=== PATIENT | female | born 1965 | race Caucasian/White ===

== ENCOUNTER 2021-08-15 15:58 | Inpatient (IN) | payer OTHER ==
[2021-08-15] MEDS ORDERED: Sodium Chloride 0.9% 1,000 ML IV ONE (16:21)
[2021-08-15] MEDS ORDERED: Ondansetron 4 MG/2 ML SDV IV ONE (16:21)
[2021-08-15 16:37] LABS: BASE EXCESS ARTERIAL -7 mmol/L ((-2)-(+3)); BICARBONATE,ARTERIAL 14.6 mmol/L (22-26); O2 DELIVERY DEVICE ROOM AIR; O2 SATURATION ARTERIAL 96 % (95-100); PCO2 ARTERIAL 20 mmHg (35-45); PO2 ARTERIAL 80 mmHg (70-100)
[2021-08-15 16:52] LABS: ANION GAP 23.2 mEq/L (7-13); CHLORIDE,CL 92 mmol/L (98-107); SODIUM,NA 129 mmol/L (136-145)
[2021-08-15 16:54] LABS: PTT,PARTIAL THROMBOPLSTIN TIME 25.2 SEC (22.0-34.0)
[2021-08-15 17:19] LABS: CORONAVIRUS COVID-19 NAA POSITIVE (NEGATIVE)
--- NOTE | 2021-08-15 17:58 | CT ---
PROCEDURE INFORMATION: Exam: CT Chest Without Contrast; Diagnostic Exam date and time: 08/15/2021 5:36 PM Age: 56 years old Clinical indication: Other: Covid positive, cough TECHNIQUE: Imaging protocol: Diagnostic computed tomography of the chest without contrast. Radiation optimization: All CT scans at this facility use at least one of these dose optimization techniques: automated exposure control; mA and/or kV adjustment per patient size (includes targeted exams where dose is matched to clinical indication); or iterative reconstruction. COMPARISON: No relevant prior studies available. FINDINGS: Lungs: There are bilateral multifocal areas of interstitial/ground-glass opacity of mild severity. Distribution is peripheral. Pleural spaces: No pleural effusion. No pneumothorax. Heart: Small pericardial effusion measures up to 8 mm anteriorly. The heart is not enlarged.There is minor atherosclerotic calcification of the coronary arteries. Aorta: There is no thoracic aortic aneurysm. Lymph nodes: There is no evidence of lymphadenopathy. Gallbladder and bile ducts: Status post cholecystectomy. Adrenal glands: The adrenal glands are normal. Bones/joints: No acute bony findings are identified. Soft tissues: There is no soft tissue abnormality seen. IMPRESSION: 1. 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 Bacterial etiologies cannot not be excluded. 2. Follow-up imaging studies recommended to assure complete resolution. 3. Pericardial effusion, etiology indeterminate.
--- NOTE | 2021-08-15 18:10 | EDM.PDOC ---
"Scribed by Carol Molina 08/15/21 [id number] for Rosendo Mcgee MD ED HPI GENERAL MEDICAL PROBLEM - General Chief Complaint: General Stated Complaint: AMBULANCE Time Seen by Provider: 08/15/21 15:57 Source of Information: Reports: Patient, EMS, EMS Notes Reviewed, RN, RN Notes Reviewed History Limitations: Reports: No Limitations - History of Present Illness INITIAL COMMENTS - FREE TEXT/NARRATIVE: Pt arrives to ER from home by ambulance with c/o feeling progressively worse since 08/11/21. Pt states she went to a doctor's appointment in [place] on Saturday and began feeling ill in general with body ache and chills shortly after leaving the clinic. She developed nausea, vomiting, diarrhea, fever/chills, mild cough, dry mouth, and shortness of breath. Yesterday she lost her sense of taste and became worried that she might have COVID. Pt hasn't eaten or been able to keep down her oral meds for the last 3 days. 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 Pt has IDDM Type 2. Denies Hx of DKA. 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 Onset: Gradual Duration: Constant, Getting Worse Location: Reports: Generalized Quality: Reports: Ache Severity: Severe Improves with: Reports: None Worsens with: Reports: None Associated Symptoms: Reports: No Other Symptoms Generalized Pain Score (Numeric/FACES): 10 - Related Data Allergies Allergy/AdvReac Type Severity Reaction Status Date / Time daptomycin Allergy Cannot Verified 08/15/21 16:45 Remember piperacillin [From Zosyn] Allergy Cannot Verified 08/15/21 16:45 Remember tazobactam [From Zosyn] Allergy Cannot Verified 08/15/21 16:45 Remember Home Meds: Home Meds Aspirin [Aspirin EC] 81 mg PO BEDTIME 12/30/20 [History] Chlorthalidone 25 mg PO DAILY 12/30/20 [History] Cholecalciferol (Vitamin D3) [Vitamin D3] 2,000 unit PO DAILY 12/30/20 [History] Insulin Aspart [NovoLOG] 3 - 5 units SQ TIDMEALS 12/30/20 [History] Insulin Detemir [Levemir Flextouch] 30 unit SQ BEDTIME 12/30/20 [History] Pioglitazone HCl [Actos] 30 mg PO DAILY 12/30/20 [History] Spironolactone [Aldactone] 25 mg PO Q48H 12/30/20 [History] amLODIPine [Norvasc] 7.5 mg PO DAILY 12/30/20 [History] atorvaSTATin Calcium [Lipitor] 20 mg PO DAILY 12/30/20 [History] carvediloL [Coreg] 6.25 mg PO BID 12/30/20 [History] metFORMIN [Glucophage] 1,000 mg PO BIDMEALS 12/30/20 [History] Past Medical History HEENT History: Reports: Cataract, Impaired Vision, Retinal Detachment, Other (See Below) Other HEENT History: Left eye Cardiovascular History: Reports: Hypertension Genitourinary History: Reports: Chronic Renal Insuffiency 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: Endocrine/Metabolic History: Reports: Diabetes, Type II, Obesity/BMI 30+ Hematologic History: Reports: Blood Transfusion(s) Dermatologic History: Reports: Cellulitis - Past Surgical History HEENT Surgical History: Reports: Cataract Surgery Cardiovascular Surgical History: Reports: None GI Surgical History: Reports: Cholecystectomy Female Surgical History: Reports: Section, Endometrial Ablation Endocrine Surgical History: Reports: None Musculoskeletal Surgical History: Reports: Other (See Below) Other Musculoskeletal Surgeries/Procedures:: Right foot toe removal Social & Family History - Family History Family Medical History: No Pertinent Family History ED ROS GENERAL - Review of Systems Review Of Systems: Comprehensive ROS is negative, except as noted in HPI. ED EXAM, GENERAL - Physical Exam Exam: See Below Exam Limited By: No Limitations General Appearance: Alert, No Apparent Distress, Obese, Other (Acutely ill, but non-toxic appearing) Eye Exam: Bilateral Eye: EOMI, Normal Inspection, PERRL Nose: Normal Inspection, Normal Mucosa, No Blood Throat/Mouth: Normal Lips, Normal Voice, No Airway Compromise, Other (Very dry oral membranes) Head: Atraumatic, Normocephalic Neck: Normal Inspection, Supple, Non-Tender, Full Range of Motion Respiratory/Chest: No Respiratory Distress, No Accessory Muscle Use, Chest Non- Tender, Decreased Breath Sounds, Other (Hyperventilating). No: Crackles, Rales, Rhonchi, Wheezing Cardiovascular: Normal Peripheral Pulses, Regular Rate, Rhythm GI/Abdominal: Normal Bowel Sounds, Soft, No Organomegaly, No Distention, No Abnormal Bruit, No Mass, Tender (Mild generalized tenderness). No: Guarding, Rigid, Rebound Back Exam: Normal Inspection Extremities: Normal Inspection, Normal Range of Motion, Non-Tender, Normal Capillary Refill, No Pedal Edema Neurological: Alert, Oriented, CN II-XII Intact, Normal Cognition, Normal Gait, No Motor/Sensory Deficits Psychiatric: Normal Affect, Normal Mood Skin Exam: Warm, Dry, Intact, Normal Color, No Rash Course - Vital Signs Last Recorded V/S: Last Vital Signs Temp 97.6 F 08/15/21 16:40 Pulse 94 08/15/21 16:40 Resp 33 H 08/15/21 16:40 BP 142/75 H 08/15/21 16:40 Pulse Ox 95 08/15/21 16:40 - Orders/Labs/Meds Orders: Active Orders 24 hr Category Date Time Status Blood Glucose Check, Bedside [RC] ONETIME Care 08/15/21 15:56 Active Blood Glucose Check, Bedside [RC] ONETIME Care 08/15/21 16:18 Active Peripheral IV Care [RC] . DIRECTED Care 08/15/21 16:20 Active CULTURE BLOOD [BC] Stat Lab 08/15/21 16:20 Ordered CULTURE BLOOD [BC] Stat Lab 08/15/21 16:20 Received GLUCOSE,POC [POC] Routine Lab 08/15/21 18:00 Received UA W/MICROSCOPIC [URIN] Stat Lab 08/15/21 17:34 Results Insulin Regular in 0.9 % NACL [Myxredlin in NS 100 UNIT Med 08/15/21 16:22 Active /100 ML] 100 unit in 100 ml IV TITRATE Sodium Chloride 0.9% [Saline Flush] Med 08/15/21 16:19 Active 10 ml FLUSH ASDIRECTED PRN Blood Culture x2 Reflex Set [OM.PC] Stat Oth 08/15/21 16:17 Ordered Peripheral IV Insertion Adult [OM.PC] Stat Oth 08/15/21 16:19 Ordered Medication Orders Insulin Regular in 0.9 % NACL (Myxredlin In Ns 100 Unit/100 Ml) 100 unit in 100 mls @ 8.5 mls/hr IV TITRATE JONNY; Protocol Last Admin: 08/15/21 16:34 Dose: 0.1 units/kg/hr, 8.5 mls/hr Documented by: MARII Cosigned by: LIZETH Sodium Chloride (Sodium Chloride 0.9% 10 Ml Syringe) 10 ml FLUSH ASDIRECTED PRN PRN Reason: Keep Vein Open Labs: Laboratory Tests 08/15/21 08/15/21 08/15/21 Range/Units 15:56 16:19 16:20 WBC (5.0-10.0) 10^3/uL RBC (4.2-5.4) 10^6/uL Hgb (12.0-16.0) g/dL Hct (37.0-47.0) % MCV (80-100) fL MCH (27.0-34.0) pg MCHC (33.0-35.0) g/dL Plt Count (150-450) 10^3/uL Neut % (Auto) (42.2-75.2) % Lymph % (Auto) (20.5-50.1) % [place] % (Auto) (2-8) % Eos % (Auto) (1.0-3.0) % Baso % (Auto) (0.0-1.0) % PT (9.0-12.0) SEC INR (0.9-1.2) APTT (22.0-34.0) SEC D-Dimer, Quantitative (0-400) ng/mL ABG pH 7.48 H (7.35-7.45) ABG pCO2 20 L (35-45) mmHg ABG pO2 80 (70-100) mmHg ABG HCO3 14.6 L (22-26) mmol/L ABG O2 Saturation 96 (95-100) % ABG Base Excess -7 L ((-2)-(+3)) mmol/L O2 Delivery Device Room air Sodium 129 L (136-145) mmol/L Potassium 4.2 (3.5-5.1) mmol/L Chloride 92 L (98-107) mmol/L Carbon Dioxide 18 L (21-32) mmol/L Anion Gap 23.2 H (7-13) mEq/L BUN 63 H (7-18) mg/dL Creatinine 2.69 H (0.55-1.02) mg/dL Est Cr Clr Drug Dosing 22.12 mL/min Estimated GFR (MDRD) 18 BUN/Creatinine Ratio 23.4 (No establ ref range) Glucose 362 H (70-99) mg/dL POC Glucose (70-99) mg/dL Lactic Acid (0.4-2.0) mmol/L Calcium 8.9 (8.5-10.1) mg/dL Total Bilirubin 0.4 (0.2-1.0) mg/dL AST 32 (15-37) U/L ALT 45 (14-59) U/L Alkaline Phosphatase 108 (46-116) U/L Troponin I High Sens 25 (<=51) pg/mL C-Reactive Protein 2.1 H (0.0-0.9) mg/dL B-Natriuretic Peptide 8 (0-100) pg/ml Total Protein 8.2 (6.4-8.2) g/dL Albumin 3.3 L (3.4-5.0) g/dL Globulin 4.9 Albumin/Globulin Ratio 0.67 Amylase 53 (25-115) U/L Lipase 198 (73-393) U/L Urine Color (YELLOW) Urine Appearance (CLEAR) Urine pH (5.0-9.0) Ur Specific [place] (1.005-1.030) Urine Protein (NEGATIVE) Urine Glucose (UA) (NEGATIVE) Urine Ketones (NEGATIVE) Urine Occult Blood (NEGATIVE) Urine Nitrite (NEGATIVE) Urine Bilirubin (NEGATIVE) Urine Urobilinogen (0.2-1.0) mg/dL Ur Leukocyte Esterase (NEGATIVE) Ketones Negative Influenza Type A RNA Negative (NEGATIVE) Influenza Type B RNA Negative (NEGATIVE) SARS-CoV-2 RNA (CHET) Positive H (NEGATIVE) 08/15/21 08/15/21 08/15/21 Range/Units 16:20 16:20 16:20 WBC 6.6 (5.0-10.0) 10^3/uL RBC 5.05 (4.2-5.4) 10^6/uL Hgb 13.3 (12.0-16.0) g/dL Hct 38.2 (37.0-47.0) % MCV 75.6 L D (80-100) fL MCH 26.3 L (27.0-34.0) pg MCHC 34.8 (33.0-35.0) g/dL Plt Count 269 D (150-450) 10^3/uL Neut % (Auto) 79.1 H (42.2-75.2) % Lymph % (Auto) 11.0 L (20.5-50.1) % [place] % (Auto) 9.7 H (2-8) % Eos % (Auto) 0.0 L (1.0-3.0) % Baso % (Auto) 0.2 (0.0-1.0) % PT 10.2 (9.0-12.0) SEC INR 1.0 (0.9-1.2) APTT 25.2 (22.0-34.0) SEC D-Dimer, Quantitative 792 H (0-400) ng/mL ABG pH (7.35-7.45) ABG pCO2 (35-45) mmHg ABG pO2 (70-100) mmHg ABG HCO3 (22-26) mmol/L ABG O2 Saturation (95-100) % ABG Base Excess ((-2)-(+3)) mmol/L O2 Delivery Device Sodium (136-145) mmol/L Potassium (3.5-5.1) mmol/L Chloride (98-107) mmol/L Carbon Dioxide (21-32) mmol/L Anion Gap (7-13) mEq/L BUN (7-18) mg/dL Creatinine (0.55-1.02) mg/dL Est Cr Clr Drug Dosing mL/min Estimated GFR (MDRD) BUN/Creatinine Ratio (No establ ref range) Glucose (70-99) mg/dL POC Glucose (70-99) mg/dL Lactic Acid (0.4-2.0) mmol/L Calcium (8.5-10.1) mg/dL Total Bilirubin (0.2-1.0) mg/dL AST (15-37) U/L ALT (14-59) U/L Alkaline Phosphatase (46-116) U/L Troponin I High Sens (<=51) pg/mL C-Reactive Protein (0.0-0.9) mg/dL B-Natriuretic Peptide (0-100) pg/ml Total Protein (6.4-8.2) g/dL Albumin (3.4-5.0) g/dL Globulin Albumin/Globulin Ratio Amylase (25-115) U/L Lipase (73-393) U/L Urine Color (YELLOW) Urine Appearance (CLEAR) Urine pH (5.0-9.0) Ur Specific [place] (1.005-1.030) Urine Protein (NEGATIVE) Urine Glucose (UA) (NEGATIVE) Urine Ketones (NEGATIVE) Urine Occult Blood (NEGATIVE) Urine Nitrite (NEGATIVE) Urine Bilirubin (NEGATIVE) Urine Urobilinogen (0.2-1.0) mg/dL Ur Leukocyte Esterase (NEGATIVE) Ketones Influenza Type A RNA (NEGATIVE) Influenza Type B RNA (NEGATIVE) SARS-CoV-2 RNA (CHET) (NEGATIVE) 08/15/21 08/15/21 08/15/21 Range/Units 16:20 16:48 17:34 WBC (5.0-10.0) 10^3/uL RBC (4.2-5.4) 10^6/uL Hgb (12.0-16.0) g/dL Hct (37.0-47.0) % MCV (80-100) fL MCH (27.0-34.0) pg MCHC (33.0-35.0) g/dL Plt Count (150-450) 10^3/uL Neut % (Auto) (42.2-75.2) % Lymph % (Auto) (20.5-50.1) % [place] % (Auto) (2-8) % Eos % (Auto) (1.0-3.0) % Baso % (Auto) (0.0-1.0) % PT (9.0-12.0) SEC INR (0.9-1.2) APTT (22.0-34.0) SEC D-Dimer, Quantitative (0-400) ng/mL ABG pH (7.35-7.45) ABG pCO2 (35-45) mmHg ABG pO2 (70-100) mmHg ABG HCO3 (22-26) mmol/L ABG O2 Saturation (95-100) % ABG Base Excess ((-2)-(+3)) mmol/L O2 Delivery Device Sodium (136-145) mmol/L Potassium (3.5-5.1) mmol/L Chloride (98-107) mmol/L Carbon Dioxide (21-32) mmol/L Anion Gap (7-13) mEq/L BUN (7-18) mg/dL Creatinine (0.55-1.02) mg/dL Est Cr Clr Drug Dosing mL/min Estimated GFR (MDRD) BUN/Creatinine Ratio (No establ ref range) Glucose (70-99) mg/dL POC Glucose 324 H (70-99) mg/dL Lactic Acid 2.0 (0.4-2.0) mmol/L Calcium (8.5-10.1) mg/dL Total Bilirubin (0.2-1.0) mg/dL AST (15-37) U/L ALT (14-59) U/L Alkaline Phosphatase (46-116) U/L Troponin I High Sens (<=51) pg/mL C-Reactive Protein (0.0-0.9) mg/dL B-Natriuretic Peptide (0-100) pg/ml Total Protein (6.4-8.2) g/dL Albumin (3.4-5.0) g/dL Globulin Albumin/Globulin Ratio Amylase (25-115) U/L Lipase (73-393) U/L Urine Color Yellow (YELLOW) Urine Appearance Cloudy (CLEAR) Urine pH 5.5 (5.0-9.0) Ur Specific [place] >= 1.030 (1.005-1.030) Urine Protein 100 H (NEGATIVE) Urine Glucose (UA) 250 H (NEGATIVE) Urine Ketones Negative (NEGATIVE) Urine Occult Blood Moderate H (NEGATIVE) Urine Nitrite Negative (NEGATIVE) Urine Bilirubin Negative (NEGATIVE) Urine Urobilinogen 0.2 (0.2-1.0) mg/dL Ur Leukocyte Esterase Negative (NEGATIVE) Ketones Influenza Type A RNA (NEGATIVE) Influenza Type B RNA (NEGATIVE) SARS-CoV-2 RNA (CHET) (NEGATIVE) Meds: Medications Generic Name Dose Route Start Last Admin Trade Name Freq PRN Reason Stop Dose Admin Insulin Regular in 0.9 % NACL 100 unit in 100 mls @ 8.5 mls/hr 08/15/21 16:22 08/15/21 16:34 Myxredlin In Ns 100 Unit/100 Ml IV 0.1 units/kg/hr TITRATE JONNY 8.5 mls/hr Administration Protocol 0.1 UNITS/KG/HR Sodium Chloride 10 ml 08/15/21 16:19 Sodium Chloride 0.9% 10 Ml Syringe FLUSH ASDIRECTED PRN Keep Vein Open Discontinued Medications Generic Name Dose Route Start Last Admin Trade Name Freq PRN Reason Stop Dose Admin Sodium Chloride 1,000 mls @ 999 mls/hr 08/15/21 16:21 08/15/21 16:33 Normal Saline IV 08/15/21 17:21 999 mls/hr .BOLUS ONE Administration Ondansetron HCl 4 mg 08/15/21 16:21 08/15/21 16:31 Ondansetron 4 Mg/2 Ml Sdv IV 08/15/21 16:22 4 mg ONETIME ONE Administration - Radiology Interpretation Free Text/Narrative:: [facility] Final Radiology Report Call: [phone] assistance Online chat: [email or web address] Name: NEELAM CASTILLO Age: 56Years F Date: 08/15/2021 SSN: -- : [id number] Study: CT CHEST WO CONT Requesting Physician: ROSENDO MCGEE Images: [phone] Addl Studies: Provided Clinical History: COVID positive, cough Contrast: Without Contrast Medium: Contrast Amount: Contrast Method: Page 1 of 2 PROCEDURE INFORMATION: Exam: CT Chest Without Contrast; Diagnostic Exam date and time: 08/15/2021 5:36 PM Age: 56 years old Clinical indication: Other: Covid positive, cough TECHNIQUE: Imaging protocol: Diagnostic computed tomography of the chest without contrast. Radiation optimization: All CT scans at this facility use at least one of these dose optimization techniques: automated exposure control; mA and/or kV adjustment per patient size (includes targeted exams where dose is matched to clinical indication); or iterative reconstruction. COMPARISON: No relevant prior studies available. FINDINGS: Lungs: There are bilateral multifocal areas of interstitial/ground-glass opacity of mild severity. Distribution is peripheral. Pleural spaces: No pleural effusion. No pneumothorax. Heart: Small pericardial effusion measures up to 8 mm anteriorly. The heart is not enlarged.There is minor atherosclerotic calcification of the coronary arteries. Aorta: There is no thoracic aortic aneurysm. Lymph nodes: There is no evidence of lymphadenopathy. Gallbladder and bile ducts: Status post cholecystectomy. Adrenal glands: The adrenal glands are normal. Bones/joints: No acute bony findings are identified. Soft tissues: There is no soft tissue abnormality seen. IMPRESSION: NEELAM CASTILLO | Final Radiology Report CONFIDENTIALITY STATEMENT This report is intended only for use by the referring physician, and only in accordance with law. If you received this in error, call [phone]. Page 2 of 2 1. 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 Bacterial etiologies cannot not be excluded. 2. Follow-up imaging studies recommended to assure complete resolution. 3. Pericardial effusion, etiology indeterminate. Thank you for allowing us to participate in the care of your patient. Dictated and Authenticated by: Kenny Rodriguez MD 08/15/2021 5:57 PM Central Time ([place] & [place]) - Re-Assessments/Exams Free Text/Narrative Re-Assessment/Exam: 08/15/21 18:[address] Tovar. Departure - Departure Time of Disposition: 18:14 (admitted to Dr. 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 - Discharge Information *PRESCRIPTION DRUG MONITORING PROGRAM REVIEWED*: Not Applicable *COPY OF PRESCRIPTION DRUG MONITORING REPORT IN PATIENT HEIDE: Not Applicable Forms: ED Department Discharge Sepsis Event Note (ED) - Focused Exam Vital Signs: Vital Signs Temp Pulse Resp BP Pulse Ox 08/15/21 16:40 97.6 F 94 33 H 142/75 H 95 - My Orders Last 24 Hours: My Active Orders 08/15/21 15:56 Blood Glucose Check, Bedside [RC] ONETIME 08/15/21 16:17 Blood Culture x2 Reflex Set [OM.PC] Stat 08/15/21 16:18 Blood Glucose Check, Bedside [RC] ONETIME 08/15/21 16:19 Sodium Chloride 0.9% [Saline Flush] 10 ml FLUSH ASDIRECTED PRN Peripheral IV Insertion Adult [OM.PC] Stat 08/15/21 16:20 Peripheral IV Care [RC] . DIRECTED CULTURE BLOOD [BC] Stat CULTURE BLOOD [BC] Stat 08/15/21 16:22 Insulin Regular in 0.9 % NACL [Myxredlin in NS 100 UNIT/100 ML] 100 unit in 100 ml IV TITRATE 08/15/21 17:34 UA W/MICROSCOPIC [URIN] Stat 08/15/21 18:00 GLUCOSE,POC [POC] Routine - Assessment/Plan Last 24 Hours: My Active Orders 08/15/21 15:56 Blood Glucose Check, Bedside [RC] ONETIME 08/15/21 16:17 Blood Culture x2 Reflex Set [OM.PC] Stat 08/15/21 16:18 Blood Glucose Check, Bedside [RC] ONETIME 08/15/21 16:19 Sodium Chloride 0.9% [Saline Flush] 10 ml FLUSH ASDIRECTED PRN Peripheral IV Insertion Adult [OM.PC] Stat 08/15/21 16:20 Peripheral IV Care [RC] . DIRECTED CULTURE BLOOD [BC] Stat CULTURE BLOOD [BC] Stat 08/15/21 16:22 Insulin Regular in 0.9 % NACL [Myxredlin in NS 100 UNIT/100 ML] 100 unit in 100 ml IV TITRATE 08/15/21 17:34 UA W/MICROSCOPIC [URIN] Stat 08/15/21 18:00 GLUCOSE,POC [POC] Routine I have read and agree with the documentation that has been completed regarding this visit. By signing this record, I attest that the documentation was completed in my physical presence and is an accurate record of the encounter."
[2021-08-15] MEDS ORDERED: Azithromycin 500 MG in Sodium Chloride 0.9% 250 ML IV SCH (19:00)
[2021-08-15] MEDS ORDERED: Glucagon,Human Recombinant 1 MG Vial IM PRN (19:10)
[2021-08-15] MEDS ORDERED: 50% Dextrose in Water 50 ML Syringe IVPUSH PRN (19:10)
--- NOTE | 2021-08-15 19:56 | HP ---
CHIEF COMPLAINT: Fever, chills, nausea, and vomiting. HISTORY OF PRESENT ILLNESS: The patient is a 56-year-old female with past medical history of chronic kidney disease, type 2 diabetes mellitus, on insulin. She was admitted through the emergency room because the patient started having body aches and chills with nausea, vomiting, diarrhea, mild cough, and she lost her sense of taste yesterday and worried that she might have a COVID. In emergency room, she was tested for COVID, which came back positive. She also had a CAT scan of the chest, which showed some signs of COVID pneumonia. Symptoms started last 08/11/2021. She did complain of some mild shortness of breath, but she denies any chest pain, syncope, orthopnea, PND, nor any other associated symptoms. For the last 3 days, she was unable to take her medication including her medication for diabetes because of the nausea, vomiting, and diarrhea. Because of the above symptoms, she was then admitted for further evaluation and management. PAST MEDICAL HISTORY: Remarkable for cataract, retinal detachment, hypertension, chronic renal insufficiency, type 2 diabetes mellitus, obesity. PAST SURGICAL HISTORY: History of cholecystectomy and also history of amputation of the toe on the right foot. HOME MEDICATIONS: Aspirin, chlorthalidone, vitamin D3, NovoLog 3 to 5 units 3 times a day with meals, Levemir 30 units at bedtime, Actos, spironolactone, amlodipine, Lipitor, Coreg, metformin. ALLERGIES: Daptomycin, Zosyn. FAMILY HISTORY: Noncontributory. SOCIAL HISTORY: The patient is a nonsmoker, nonalcohol drinker, and no illicit drug use. REVIEW OF SYSTEMS: As in HPI. The rest of the review of systems is negative. PHYSICAL EXAMINATION: General: Very pleasant lady. She is alert and oriented, not in any acute distress. Vital Signs: Blood pressure is 142/75, pulse oximetry is 95% on room air, respirations of 33, pulse 94, temperature of 97.6. SHEENT: Normocephalic. There are pink palpebral conjunctivae. Sclerae anicteric. No JVD. No lymphadenopathy. Skin turgor slightly diminished, but mucous membranes moist. Heart: Regular rate and rhythm. Normal S1 and S2. No gallops. No rubs. Lungs: Equal bilaterally. No significant crackles. No wheezing. Abdomen: Soft, nontender. Bowel sounds positive. Extremities: Negative for any significant pedal edema. No calf tenderness. LABORATORY WORKUP: CBC: WBC 6.6, hemoglobin is 13.3, hematocrit is 38.2, platelet is 269. Protime is 10.2, INR of 1, and D-dimer is 792. Lactic acid is 2, which is within normal limits. Comprehensive metabolic panel: Sodium is 129, chloride of 92, BUN of 63, creatinine of 2.69, glucose is 362, albumin is 3.3. The rest of the panel unremarkable. Amylase is 53. Troponin is 25, which is within normal limits. C-reactive protein is 2.1. ABG: pH is 7.48, pCO2 of 20, pO2 of 80, saturation is 96%, and this is on room air. Urinalysis is remarkable for glucose of 250 and protein of 100. Influenza A and B are negative. SARS-CoV-2 RNA is positive. CAT scan of her chest showed bilateral interstitial disease suspected of pneumonia. ADMITTING DIAGNOSES: 1. Pneumonia. 2. Coronavirus disease 2019 infection. 3. Gastroenteritis. 4. Dehydration. 5. Uncontrolled diabetes. TREATMENT PLAN: The patient is going to be admitted to [facility]. She will be empirically started on IV antibiotics, Rocephin, and Zithromax for her pneumonia. Remdesivir will not be started as her saturation is still above 94%. We will also resume her Lantus and continue with sliding scale insulin and will give her IV fluids and the rest of the management as necessary, and the patient is a full code. [facility] /[id number]
[2021-08-15] MEDS: Sodium Chloride 0.9% 1,000 ML IV SCH (20:47)
[2021-08-15] MEDS: Pantoprazole 40 MG Tab.CR PO SCH (20:48)
[2021-08-15] MEDS: Carvedilol 6.25 MG Tab PO SCH (20:49)
[2021-08-15] MEDS: Ondansetron 4 MG Tab.DIS PO PRN (21:06)
[2021-08-15] MEDS: Insulin Lispro 100 Units/ML 3 ML Vial SUBCUT SCH (21:32)
[2021-08-15] MEDS: Insulin Glarg,Human.Rec.Analog 100 Unit/ML SUBCUT SCH (21:33)
[2021-08-15] MEDS: cefTRIAXone 1 GM in Sodium Chloride 0.9% 50 ML IV SCH (22:10)
[2021-08-16] MEDS: Albuterol/Ipratropium 3.0-0.5 MG/3 ML Neb Soln NEB SCH ×3 (01:10→18:37)
[2021-08-16 05:41] LABS: ANION GAP 19.9 mEq/L (7-13)
[2021-08-16] MEDS: Insulin Lispro 100 Units/ML 3 ML Vial SUBCUT SCH ×5 (09:11→22:12)
[2021-08-16] MEDS: Enoxaparin 30 MG/0.3 ML Syringe SUBCUT SCH (09:13)
[2021-08-16] MEDS: Carvedilol 6.25 MG Tab PO SCH ×2 (09:13→21:53)
[2021-08-16] MEDS: Doxycycline 100 MG in Sodium Chloride 0.9% 100 ML IV SCH ×2 (09:31→21:05)
[2021-08-16] MEDS: Ondansetron 4 MG Tab.DIS PO PRN (10:52)
[2021-08-16] MEDS ORDERED: Glucagon,Human Recombinant 1 MG Vial IM PRN (15:00)
[2021-08-16] MEDS ORDERED: 50% Dextrose in Water 50 ML Syringe IVPUSH PRN (15:00)
[2021-08-16] MEDS: Sodium Chloride 0.9% 1,000 ML IV SCH (16:48)
--- NOTE | 2021-08-16 20:20 | PN ---
DATE: 08/16/2021 SUBJECTIVE: The patient was seen today. She is in no acute distress. The patient is lying flat on the bed and no acute complaints. Creatinine decreased in the morning to 2.22 from 2.6. OBJECTIVE: Vital Signs: Temperature 99.7, pulse 80, blood pressure 147/74, respiratory rate 18, and oxygen saturation 92 on 1 L. HEENT: The patient's head is atraumatic, normocephalic. Neck: Supple. No thyromegaly. No lymphadenopathy. Heart: S1, S2. Regular rate. No murmur. Lungs: Mild crackles to ausculation. Abdomen: Soft, nontender. Positive bowel sounds. Extremities: No edema. Neurologic: The patient is alert and oriented x3. No acute focal neurologic deficits. LABORATORY DATA: Today, on 08/16/2021: WBC 6.4, hemoglobin 11.1, MCV 76.8, platelet count 242. Lymphocytes 16.2, low; monocytes 9.1, high; neutrophils normal. Sodium 134; potassium 3.9; chloride 99; CO2 19, which is low; anion gap 19.9, it is high; BUN 63, high; and creatinine is 2.22. Estimated creatinine clearance 26.8. Glucose 214. Calcium 7.7. Bilirubin 0.2. Albumin 2.6. Chest CT done on 08/15 shows bilateral interstitial disease suspected for pneumonia, viral etiology and atypical etiology require consideration. Bacterial etiology cannot be excluded. The patient's EKG done yesterday shows QTc more than 510. The patient's was discontinued, and the patient was started on doxycycline 100 mg IV q.12 hours. ASSESSMENT AND PLAN: 1. COVID pneumonia. The patient has been continuing with COVID isolation and to be continued with IV antibiotics, doxycycline 100 mg IV q.12 hours and Rocephin 1 g IV q.24 hours. Remdesivir cannot be started as her creatinine clearance is low. Also the patient's saturation is above 90. 2. Acute on chronic kidney injury. Creatinine improved with IV fluids. We will continue hydration. 3. Uncontrolled diabetes. The patient will continue with insulin glargine 30 units subcutaneous at bedtime, and we will add insulin lispro 7 units subcutaneous with meal, and we will continue insulin on sliding scale. 4. Gastroenteritis, resolved. The patient does not have acute complaints of diarrhea, vomiting. 5. For deep venous thrombosis prophylaxis, the patient will be on enoxaparin 30 mg subcutaneous q.24 hours. [facility] /[id number]
[2021-08-16] MEDS: cefTRIAXone 1 GM in Sodium Chloride 0.9% 50 ML IV SCH (20:28)
[2021-08-16] MEDS: Pantoprazole 40 MG Tab.CR PO SCH (20:29)
[2021-08-16] MEDS: Insulin Glarg,Human.Rec.Analog 100 Unit/ML SUBCUT SCH (21:57)
[2021-08-17] MEDS: Acetaminophen 325 MG Tab PO PRN ×4 (00:18→21:46)
[2021-08-17] MEDS: Sodium Chloride 0.9% 1,000 ML IV SCH ×3 (00:19→17:30)
[2021-08-17] MEDS: Albuterol/Ipratropium 3.0-0.5 MG/3 ML Neb Soln NEB SCH (00:22)
[2021-08-17 07:28] LABS: ANION GAP 16.9 mEq/L (7-13)
[2021-08-17] MEDS: Carvedilol 6.25 MG Tab PO SCH ×2 (08:58→21:39)
[2021-08-17] MEDS: Doxycycline 100 MG in Sodium Chloride 0.9% 100 ML IV SCH ×2 (08:59→21:41)
[2021-08-17] MEDS: Enoxaparin 30 MG/0.3 ML Syringe SUBCUT SCH ×2 (09:05→11:33)
[2021-08-17] MEDS: Insulin Lispro 100 Units/ML 3 ML Vial SUBCUT SCH ×7 (09:06→21:40)
--- NOTE | 2021-08-17 14:05 | PN ---
DATE: 08/17/2021 SUBJECTIVE: The patient was seen today. She is feeling better. OBJECTIVE: Vital Signs: In the morning were temperature 100.1, pulse rate 68, blood pressure 125/68 with mean blood pressure of 87, respiratory rate 18, oxygen saturation 96% on 1 L nasal cannula. Head: Normocephalic and atraumatic. Eyes: Pupils are reactive to light. Neck: Supple. No thyromegaly. No lymphadenopathy. Lungs: Mild fine crackles bilateral. Abdomen: Soft and nontender. Positive bowel sounds. Extremities: No edema. The patient has amputation of the right forefoot. LABORATORY DATA: Today, her sodium was 139, potassium 3.9, chloride 106, CO2 of 20, anion gap 16.9. BUN 37, creatinine of 1.79. GFR was 29. Estimated creatinine clearance is 13.24, glucose 122, calcium 7.8 and low, AST and ALT were 31 and 31, alkaline phosphatase 68, total protein 6. Albumin 2.3. The patient refused Lovenox because she was concerned she might be bleeding. I discussed with the patient and she agreed to take the Lovenox. ASSESSMENT AND PLAN: 1. Pneumonia due to COVID and also her procalcitonin was 0.3 and bacterial pneumonia, interstitial pneumonia, the patient will be continued with COVID isolation and we will continue with IV antibiotics, ceftriaxone 1 g q.24 hours and doxycycline 100 mg every 12 hours. The patient does not qualify for remdesivir or dexamethasone as her oxygen saturation is around 94% on room air. 2. Acute on chronic kidney disease. Creatinine is improving with IV fluids. We will continue IV hydration. 3. For diabetes, the patient will continue with insulin glargine and insulin lispro 7 units subcutaneous with meals and we will also give the patient insulin on sliding scale. 4. Gastroenteritis, resolved. 5. For deep vein thrombosis, the patient agreed to take enoxaparin 30 mg subcutaneous q.24 hours. [facility] /[id number]
[2021-08-17] MEDS: cefTRIAXone 1 GM in Sodium Chloride 0.9% 50 ML IV SCH (19:55)
[2021-08-17] MEDS: Pantoprazole 40 MG Tab.CR PO SCH (21:39)
[2021-08-17] MEDS: Insulin Glarg,Human.Rec.Analog 100 Unit/ML SUBCUT SCH (21:40)
[2021-08-17 22:16] LABS: ALLEN TEST PERFORMED
[2021-08-18] MEDS: Sodium Chloride 0.9% 1,000 ML IV SCH ×2 (03:23→12:26)
[2021-08-18] MEDS: Acetaminophen 325 MG Tab PO PRN ×3 (04:24→23:11)
[2021-08-18] MEDS ORDERED: Potassium Chloride 10 MEQ Tab.ER PO ONE (07:47)
[2021-08-18] MEDS: Insulin Lispro 100 Units/ML 3 ML Vial SUBCUT SCH ×5 (08:08→23:33)
[2021-08-18] MEDS: Carvedilol 6.25 MG Tab PO SCH ×2 (08:09→21:48)
[2021-08-18] MEDS: Enoxaparin 30 MG/0.3 ML Syringe SUBCUT SCH (08:10)
[2021-08-18] MEDS: Doxycycline 100 MG in Sodium Chloride 0.9% 100 ML IV SCH ×2 (08:24→21:55)
[2021-08-18] MEDS ORDERED: Magnesium Sulfate/Water 2 GM in Premix Bag 1 BAG IV ONE (10:44)
--- NOTE | 2021-08-18 13:20 | CR ---
EXAMINATION: Chest 1V Frontal SEX: Female AGE: 56 years CLINICAL HISTORY: 56-year-old obese female with clinical "pneumonia". Chest CT 15 August 2021 this COVID + patient revealed "bilateral interstitial disease suspicious for viral pneumonia". Interpretation: Poor inspiratory effort AP portable chest with external alarm security or surveillance monitor leads and oxygen cannula. Patchy interstitial infiltrate (and/or atelectasis?) LLL and infrahilar region, anterior segment, RLL (medially). No air bronchograms Normal cardiac silhouette (size and configuration). No pulmonary vascular congestion, cephalization of flow or alveolar edema. No dependent pleural effusions. No lung mass or hilar lymphadenopathy. Normal midline tracheal bronchial airway. No pneumothorax or pneumomediastinum. CONCLUSION: Patchy non consolidative lower lobe infiltrates and some atelectasis associated with poor inspiration. No sign of heart failure, lung mass, or other bronchogenic pneumonia.
[2021-08-18] MEDS ORDERED: Lactated Ringers 1,000 ML IV SCH (16:30)
[2021-08-18] MEDS: Bismuth Subsalicylate 262 MG Tab.Chew PO PRN ×2 (17:08→21:47)
--- NOTE | 2021-08-18 17:33 | PN ---
DATE: 08/18/2021 SUBJECTIVE: Patient is seen today. She is comfortable in the bed. She does not report any active complaints, but I was informed by the nurse she had three loose bowel movements today, watery, and she has decreased appetite. Patient had a temperature of 101.4 at 4:24 in the morning. Currently, she is saturating 92% at room air, and her last temperature at 4 p.m. was 97.7, her blood pressure 131/67, and respiratory rate 20. PHYSICAL EXAMINATION: HEENT: Her head is atraumatic, normocephalic. Pupils equally reactive to light. Neck: Supple. No thyromegaly. No lymphadenopathy. Heart: S1, S2. Regular rhythm and rate. Lungs: There are fine crackles in left lower lobe. Abdomen: Soft, nontender. Positive bowel sounds. Extremities: She has amputation of the forefoot, right lower extremity, and no edema. Neurologic: She is alert, oriented x3, and no gross focal neurologic deficits. LABORATORY DATA: Today, her WBC 6.2, hemoglobin 9.4, and platelet count 167. Neutrophils 87.9, lymphocytes 9.6. Her sodium was 138, potassium was 3, chloride 105, CO2 of 19, creatinine 1.37, GFR 40. Her glucoses 122, 140, 83, 73, 71. Magnesium 1.3, calcium 7.4, albumin 2.2, and total protein 5.6. Chest x-ray done was repeated today and it did show patchy nonconsolidative lower lobe infiltrate and some atelectasis associated with food inspiration. No sign of heart failure, lung mass, or other bronchogenic pneumonia. ASSESSMENT AND PLAN: 1. Pneumonia due to COVID, possible bacterial pneumonia. Patient will be continued with ceftriaxone 1 g every 24 hours and doxycycline 100 mg IV q.12 hours. She does not qualify for remdesivir and dexamethasone as her oxygen saturation is 92% at room air. 2. Acute kidney failure. Creatinine is improving with IV fluids. Currently, her creatinine is 1.37. 3. Hypokalemia. The patient was given potassium supplementation 40 mEq p.o. of potassium chloride. We will follow up potassium level tomorrow. 4. For diabetes, patient will continue with insulin glargine and insulin on sliding scale. 5. Gastroenteritis. The patient was given Pepto-Bismol 524 mg q.6 hours. 6. For deep venous thrombosis prophylaxis, she was given Lovenox 30 mg q.24 hours. [facility] /[id number]
[2021-08-18] MEDS: cefTRIAXone 1 GM in Sodium Chloride 0.9% 50 ML IV SCH (20:06)
[2021-08-18] MEDS: Ondansetron 4 MG Tab.DIS PO PRN (20:11)
[2021-08-18] MEDS: Benzonatate 100 MG Cap PO PRN (21:48)
[2021-08-18] MEDS: Pantoprazole 40 MG Tab.CR PO SCH (21:48)
[2021-08-18] MEDS: Saccharomyces Boulardii (Probiotic) 250 MG Cap PO SCH (21:48)
[2021-08-18] MEDS: Insulin Glarg,Human.Rec.Analog 100 Unit/ML SUBCUT SCH (23:33)
[2021-08-19] MEDS: Benzonatate 100 MG Cap PO PRN ×2 (04:50→20:47)
[2021-08-19 07:10] LABS: ANION GAP 15.6 mEq/L (7-13)
[2021-08-19] MEDS: Insulin Lispro 100 Units/ML 3 ML Vial SUBCUT SCH ×4 (08:24→21:25)
[2021-08-19] MEDS: Sodium Chloride 0.9% 10 ML Syringe FLUSH PRN (08:25)
[2021-08-19] MEDS: Carvedilol 6.25 MG Tab PO SCH ×2 (08:25→20:35)
[2021-08-19] MEDS: Saccharomyces Boulardii (Probiotic) 250 MG Cap PO SCH ×3 (08:25→20:35)
[2021-08-19] MEDS: Doxycycline 100 MG in Sodium Chloride 0.9% 100 ML IV SCH ×2 (08:25→20:36)
[2021-08-19] MEDS: Enoxaparin 30 MG/0.3 ML Syringe SUBCUT SCH (08:25)
[2021-08-19] MEDS: Ondansetron 4 MG Tab.DIS PO PRN ×2 (12:32→20:47)
--- NOTE | 2021-08-19 16:39 | PCM.PN ---
- General Info Date of Service: 08/19/21 Admission Dx/Problem (Free Text): covid 19 viral infection, covid related diarrhea Subjective Update: still having diarrhea today and feels very weak, short of breath with movement and activity Functional Status: Reports: Pain Controlled - Review of Systems General: Reports: Weakness HEENT: Reports: No Symptoms Pulmonary: Reports: Shortness of Breath, Cough. Denies: Sputum, Hemoptysis, Wheezing Cardiovascular: Reports: No Symptoms Gastrointestinal: Reports: Diarrhea. Denies: Abdominal Pain, Nausea, Vomiting Genitourinary: Reports: No Symptoms Musculoskeletal: Reports: No Symptoms Skin: Reports: No Symptoms Neurological: Reports: No Symptoms Psychiatric: Reports: No Symptoms - Patient Data Vitals - Most Recent: Last Vital Signs Temp 98 F 08/19/21 12:00 Pulse 80 08/19/21 12:00 Resp 16 08/19/21 12:00 BP 148/72 H 08/19/21 12:00 Pulse Ox 89 L 08/19/21 12:00 Weight - Most Recent: 186 lb 4.8 oz I&O - Last 24 Hours: Intake & Output 08/19/21 08/19/21 08/19/21 06:59 14:59 22:59 Intake Total 400 550 Balance 400 550 Lab Results Last 24 Hours: Laboratory Results - last 24 hr 08/18/21 08/18/21 08/18/21 Range/Units 06:40 16:22 21:42 WBC (5.0-10.0) 10^3/uL RBC (4.2-5.4) 10^6/uL Hgb (12.0-16.0) g/dL Hct (37.0-47.0) % MCV (80-100) fL MCH (27.0-34.0) pg MCHC (33.0-35.0) g/dL Plt Count (150-450) 10^3/uL Neut % (Auto) (42.2-75.2) % Lymph % (Auto) (20.5-50.1) % Emmet % (Auto) (2-8) % Eos % (Auto) (1.0-3.0) % Baso % (Auto) (0.0-1.0) % Smear Path Review Path rpt Sodium (136-145) mmol/L Potassium (3.5-5.1) mmol/L Chloride (98-107) mmol/L Carbon Dioxide (21-32) mmol/L Anion Gap (7-13) mEq/L BUN (7-18) mg/dL Creatinine (0.55-1.02) mg/dL Est Cr Clr Drug Dosing mL/min Estimated GFR (MDRD) BUN/Creatinine Ratio (No establ ref range) Glucose (70-99) mg/dL POC Glucose 71 83 (70-99) mg/dL Calcium (8.5-10.1) mg/dL Total Bilirubin (0.2-1.0) mg/dL AST (15-37) U/L ALT (14-59) U/L Alkaline Phosphatase (46-116) U/L Total Protein (6.4-8.2) g/dL Albumin (3.4-5.0) g/dL Globulin Albumin/Globulin Ratio 08/19/21 08/19/21 08/19/21 Range/Units 06:37 06:37 08:11 WBC 7.5 (5.0-10.0) 10^3/uL RBC 3.67 L (4.2-5.4) 10^6/uL Hgb 9.7 L (12.0-16.0) g/dL Hct 29.3 L (37.0-47.0) % MCV 79.8 L (80-100) fL MCH 26.4 L (27.0-34.0) pg MCHC 33.1 (33.0-35.0) g/dL Plt Count 185 (150-450) 10^3/uL Neut % (Auto) 86.8 H (42.2-75.2) % Lymph % (Auto) 10.3 L (20.5-50.1) % Emmet % (Auto) 2.8 (2-8) % Eos % (Auto) 0.0 L (1.0-3.0) % Baso % (Auto) 0.1 (0.0-1.0) % Smear Path Review Sodium 138 (136-145) mmol/L Potassium 3.6 (3.5-5.1) mmol/L Chloride 104 (98-107) mmol/L Carbon Dioxide 22 (21-32) mmol/L Anion Gap 15.6 H (7-13) mEq/L BUN 14 (7-18) mg/dL Creatinine 1.35 H (0.55-1.02) mg/dL Est Cr Clr Drug Dosing 44.08 mL/min Estimated GFR (MDRD) 41 BUN/Creatinine Ratio 10.4 (No establ ref range) Glucose 90 (70-99) mg/dL POC Glucose 85 (70-99) mg/dL Calcium 7.9 L (8.5-10.1) mg/dL Total Bilirubin 0.3 (0.2-1.0) mg/dL AST 51 H (15-37) U/L ALT 27 (14-59) U/L Alkaline Phosphatase 55 (46-116) U/L Total Protein 5.7 L (6.4-8.2) g/dL Albumin 2.1 L (3.4-5.0) g/dL Globulin 3.6 Albumin/Globulin Ratio 0.58 08/19/21 Range/Units 12:27 WBC (5.0-10.0) 10^3/uL RBC (4.2-5.4) 10^6/uL Hgb (12.0-16.0) g/dL Hct (37.0-47.0) % MCV (80-100) fL MCH (27.0-34.0) pg MCHC (33.0-35.0) g/dL Plt Count (150-450) 10^3/uL Neut % (Auto) (42.2-75.2) % Lymph % (Auto) (20.5-50.1) % Emmet % (Auto) (2-8) % Eos % (Auto) (1.0-3.0) % Baso % (Auto) (0.0-1.0) % Smear Path Review Sodium (136-145) mmol/L Potassium (3.5-5.1) mmol/L Chloride (98-107) mmol/L Carbon Dioxide (21-32) mmol/L Anion Gap (7-13) mEq/L BUN (7-18) mg/dL Creatinine (0.55-1.02) mg/dL Est Cr Clr Drug Dosing mL/min Estimated GFR (MDRD) BUN/Creatinine Ratio (No establ ref range) Glucose (70-99) mg/dL POC Glucose 105 H (70-99) mg/dL Calcium (8.5-10.1) mg/dL Total Bilirubin (0.2-1.0) mg/dL AST (15-37) U/L ALT (14-59) U/L Alkaline Phosphatase (46-116) U/L Total Protein (6.4-8.2) g/dL Albumin (3.4-5.0) g/dL Globulin Albumin/Globulin Ratio Kiko Results Last 24 Hours: Microbiology 08/15/21 16:20 Aerobic Blood Culture - Preliminary Blood - Venous - Iv Start NO GROWTH AFTER 4 DAYS Anaerobic Blood Culture - Preliminary NO GROWTH AFTER 4 DAYS 08/15/21 22:15 Aerobic Blood Culture - Preliminary Blood - Arm, Right NO GROWTH AFTER 3 DAYS Anaerobic Blood Culture - Preliminary NO GROWTH AFTER 3 DAYS Med Orders - Current: Current Medications Acetaminophen (Acetaminophen 325 Mg Tab) 650 mg PO Q4H PRN PRN Reason: Pain (Mild 1-3)/fever Last Admin: 08/18/21 23:11 Dose: 650 mg Documented by: Benzonatate (Benzonatate 100 Mg Cap) 100 mg PO Q8H PRN PRN Reason: Other Last Admin: 08/19/21 04:50 Dose: 100 mg Documented by: Bismuth Subsalicylate (Bismuth Subsalicylate 262 Mg Tab.Chew) 524 mg PO Q4H PRN PRN Reason: Diarrhea Last Admin: 08/18/21 21:47 Dose: 524 mg Documented by: Carvedilol (Carvedilol 6.25 Mg Tab) 6.25 mg PO BID [facility] Last Admin: 08/19/21 08:25 Dose: 6.25 mg Documented by: Dextrose/Water (50% Dextrose In Water 50 Ml Syringe) 50 ml IVPUSH Q15M PRN PRN Reason: Hypoglycemia Enoxaparin Sodium (Enoxaparin 30 Mg/0.3 Ml Syringe) 30 mg SUBCUT DAILY [facility] Last Admin: 08/19/21 08:25 Dose: 30 mg Documented by: Glucagon (Glucagon,Human Recombinant 1 Mg Vial) 1 mg IM Q15M PRN PRN Reason: Hypoglycemia Ceftriaxone Sodium 1 gm/ (Sodium Chloride) 50 mls @ 100 mls/hr IV Q24H [facility] Last Infusion: 08/18/21 23:37 Dose: Infused Documented by: Doxycycline Hyclate 100 mg/ (Sodium Chloride) 100 mls @ 100 mls/hr IV Q12HR [facility] Last Infusion: 08/19/21 11:09 Dose: Infused Documented by: Insulin Glargine (Insulin Glarg,Human.Rec.Analog 100 Unit/Ml) 30 unit SUBCUT BEDTIME [facility] Last Admin: 08/18/21 23:33 Dose: Not Given Documented by: Insulin Human Lispro (Insulin Lispro 100 Units/Ml 3 Ml Vial) 0 unit SUBCUT WITHMEALSANDBED [facility]; Protocol Last Admin: 08/19/21 12:31 Dose: Not Given Documented by: Ondansetron HCl (Ondansetron 4 Mg Tab.Dis) 4 mg PO Q4H PRN PRN Reason: nausea, able to take PO Last Admin: 08/19/21 12:32 Dose: 4 mg Documented by: Pantoprazole Sodium (Pantoprazole 40 Mg Tab.Cr) 40 mg PO BEDTIME [facility] Last Admin: 08/18/21 21:48 Dose: 40 mg Documented by: Saccharomyces Boulardii (Saccharomyces Boulardii (Probiotic) 250 Mg Cap) 250 mg PO TID [facility] Last Admin: 08/19/21 15:01 Dose: 250 mg Documented by: Sodium Chloride (Sodium Chloride 0.9% 10 Ml Syringe) 10 ml FLUSH ASDIRECTED PRN PRN Reason: Keep Vein Open Last Admin: 08/19/21 08:25 Dose: 10 ml Documented by: Discontinued Medications Albuterol/Ipratropium (Albuterol/Ipratropium 3.0-0.5 Mg/3 Ml Neb Soln) 3 ml NEB Q6HRRT [facility] Last Admin: 08/17/21 00:22 Dose: Not Given Documented by: Dextrose/Water (50% Dextrose In Water 50 Ml Syringe) 50 ml IVPUSH Q15M PRN PRN Reason: Hypoglycemia Glucagon (Glucagon,Human Recombinant 1 Mg Vial) 1 mg IM Q15M PRN PRN Reason: Hypoglycemia Sodium Chloride (Normal Saline) 1,000 mls @ 999 mls/hr IV .BOLUS ONE Stop: 08/15/21 17:21 Last Admin: 08/15/21 16:33 Dose: 999 mls/hr Documented by: Insulin Regular in 0.9 % NACL (Myxredlin In Ns 100 Unit/100 Ml) 100 unit in 100 mls @ 8.5 mls/hr IV TITRATE [facility]; Protocol Last Admin: 08/15/21 16:34 Dose: 0.1 units/kg/hr, 8.5 mls/hr Documented by: Sodium Chloride (Normal Saline) 1,000 mls @ 125 mls/hr IV ASDIRECTED [facility] Last Infusion: 08/18/21 17:09 Dose: Infused Documented by: Azithromycin 500 mg/ Sodium (Chloride) 250 mls @ 250 mls/hr IV Q24H [facility] Last Admin: 08/15/21 20:48 Dose: 250 mls/hr Documented by: Magnesium Sulfate 2 gm/ Premix 50 mls @ 25 mls/hr IV ONETIME ONE Stop: 08/18/21 12:43 Last Infusion: 08/18/21 14:14 Dose: Infused Documented by: Lactated Ringer's (Ringers, Lactated) 1,000 mls @ 100 mls/hr IV ASDIRECTED [facility] Last Infusion: 08/18/21 23:00 Dose: 100 mls/hr Documented by: Insulin Human Lispro (Insulin Lispro 100 Units/Ml 3 Ml Vial) 7 unit SUBCUT TIDMEALS [facility] Last Admin: 08/18/21 08:09 Dose: Not Given Documented by: Ondansetron HCl (Ondansetron 4 Mg/2 Ml Sdv) 4 mg IV ONETIME ONE Stop: 08/15/21 16:22 Last Admin: 08/15/21 16:31 Dose: 4 mg Documented by: Potassium Chloride (Potassium Chloride 10 Meq Tab.Er) 40 meq PO ONETIME ONE Stop: 08/18/21 07:48 Last Admin: 08/18/21 08:14 Dose: 40 meq Documented by: - Exam Quality Assessment: Supplemental Oxygen (1L), DVT Prophylaxis, Skin Breakdown (small chronic ulceration on foot) General: Alert, Oriented, Cooperative, Mild Distress HEENT: EOMI Neck: Supple, No JVD Lungs: Normal Respiratory Effort, Decreased Breath Sounds (throughout bilateral mid and lower lung briggs). No: Rales, Rhonchi, Stridor, Wheezing GI/Abdominal Exam: Soft, Non-Tender, No Distention (Female) Exam: Deferred Back Exam: Full Range of Motion Extremities: Normal Range of Motion Skin: Warm, Dry, Other (chronic ulcer on pad of foot) Neurological: No New Focal Deficit Psy/Mental Status: Normal Affect, Normal Mood - Patient Data Lab Results Last 24 hrs: Laboratory Results - last 24 hr 12/03/21 12/03/21 12/03/21 Range/Units 06:40 16:22 21:42 WBC (5.0-10.0) 10^3/uL RBC (4.2-5.4) 10^6/uL Hgb (12.0-16.0) g/dL Hct (37.0-47.0) % MCV (80-100) fL MCH (27.0-34.0) pg MCHC (33.0-35.0) g/dL Plt Count (150-450) 10^3/uL Neut % (Auto) (42.2-75.2) % Lymph % (Auto) (20.5-50.1) % Emmet % (Auto) (2-8) % Eos % (Auto) (1.0-3.0) % Baso % (Auto) (0.0-1.0) % Smear Path Review Path rpt Sodium (136-145) mmol/L Potassium (3.5-5.1) mmol/L Chloride (98-107) mmol/L Carbon Dioxide (21-32) mmol/L Anion Gap (7-13) mEq/L BUN (7-18) mg/dL Creatinine (0.55-1.02) mg/dL Est Cr Clr Drug Dosing mL/min Estimated GFR (MDRD) BUN/Creatinine Ratio (No establ ref range) Glucose (70-99) mg/dL POC Glucose 71 83 (70-99) mg/dL Calcium (8.5-10.1) mg/dL Total Bilirubin (0.2-1.0) mg/dL AST (15-37) U/L ALT (14-59) U/L Alkaline Phosphatase (46-116) U/L Total Protein (6.4-8.2) g/dL Albumin (3.4-5.0) g/dL Globulin Albumin/Globulin Ratio 08/19/21 08/19/21 08/19/21 Range/Units 06:37 06:37 08:11 WBC 7.5 (5.0-10.0) 10^3/uL RBC 3.67 L (4.2-5.4) 10^6/uL Hgb 9.7 L (12.0-16.0) g/dL Hct 29.3 L (37.0-47.0) % MCV 79.8 L (80-100) fL MCH 26.4 L (27.0-34.0) pg MCHC 33.1 (33.0-35.0) g/dL Plt Count 185 (150-450) 10^3/uL Neut % (Auto) 86.8 H (42.2-75.2) % Lymph % (Auto) 10.3 L (20.5-50.1) % Emmet % (Auto) 2.8 (2-8) % Eos % (Auto) 0.0 L (1.0-3.0) % Baso % (Auto) 0.1 (0.0-1.0) % Smear Path Review Sodium 138 (136-145) mmol/L Potassium 3.6 (3.5-5.1) mmol/L Chloride 104 (98-107) mmol/L Carbon Dioxide 22 (21-32) mmol/L Anion Gap 15.6 H (7-13) mEq/L BUN 14 (7-18) mg/dL Creatinine 1.35 H (0.55-1.02) mg/dL Est Cr Clr Drug Dosing 44.08 mL/min Estimated GFR (MDRD) 41 BUN/Creatinine Ratio 10.4 (No establ ref range) Glucose 90 (70-99) mg/dL POC Glucose 85 (70-99) mg/dL Calcium 7.9 L (8.5-10.1) mg/dL Total Bilirubin 0.3 (0.2-1.0) mg/dL AST 51 H (15-37) U/L ALT 27 (14-59) U/L Alkaline Phosphatase 55 (46-116) U/L Total Protein 5.7 L (6.4-8.2) g/dL Albumin 2.1 L (3.4-5.0) g/dL Globulin 3.6 Albumin/Globulin Ratio 0.58 08/19/ Range/Units 12:27 WBC (5.0-10.0) 10^3/uL RBC (4.2-5.4) 10^6/uL Hgb (12.0-16.0) g/dL Hct (37.0-47.0) % MCV (80-100) fL MCH (27.0-34.0) pg MCHC (33.0-35.0) g/dL Plt Count (150-450) 10^3/uL Neut % (Auto) (42.2-75.2) % Lymph % (Auto) (20.5-50.1) % Emmet % (Auto) (2-8) % Eos % (Auto) (1.0-3.0) % Baso % (Auto) (0.0-1.0) % Smear Path Review Sodium (136-145) mmol/L Potassium (3.5-5.1) mmol/L Chloride (98-107) mmol/L Carbon Dioxide (21-32) mmol/L Anion Gap (7-13) mEq/L BUN (7-18) mg/dL Creatinine (0.55-1.02) mg/dL Est Cr Clr Drug Dosing mL/min Estimated GFR (MDRD) BUN/Creatinine Ratio (No establ ref range) Glucose (70-99) mg/dL POC Glucose 105 H (70-99) mg/dL Calcium (8.5-10.1) mg/dL Total Bilirubin (0.2-1.0) mg/dL AST (15-37) U/L ALT (14-59) U/L Alkaline Phosphatase (46-116) U/L Total Protein (6.4-8.2) g/dL Albumin (3.4-5.0) g/dL Globulin Albumin/Globulin Ratio Result Diagrams: 08/19/21 06:37 08/19/21 06:37 Kiko Results Last 24 hrs: Microbiology 08/15/21 16:20 Aerobic Blood Culture - Preliminary Blood - Venous - Iv Start NO GROWTH AFTER 4 DAYS Anaerobic Blood Culture - Preliminary NO GROWTH AFTER 4 DAYS 08/15/21 22:15 Aerobic Blood Culture - Preliminary Blood - Arm, Right NO GROWTH AFTER 3 DAYS Anaerobic Blood Culture - Preliminary NO GROWTH AFTER 3 DAYS Sepsis Event Note - Evaluation Sepsis Screening Result: No Definite Risk - Focused Exam Vital Signs: Vital Signs Temp Pulse Pulse Resp BP BP Pulse Ox 08/19/21 12:00 98 F 80 16 148/72 H 89 L 08/19/21 08:25 84 132/64 08/19/21 08:22 99.9 F 84 22 H 132/64 96 - Problem List Review Problem List Initiated/Reviewed/Updated: Yes - My Orders Last 24 Hours: My Active Orders 08/18/21 20:16 Benzonatate [Tessalon Perles] 100 mg PO Q8H PRN - Assessment Assessment:: ACUTE CONDITIONS: Covid 19 viral pneumonia acute respiratory failure with hypoxia 2/2 above - currently requiring 1L supplemental oxygen to maintain saturations >90% - wean oxygen as tolerated - currently does not require dexamethasone or remdesevir. 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 started imodium today for covid related loose stools and it appears to be working well. no loose stools after. on 1L supplemental oxygen and weaning as tolerated. blood sugars currently well controlled. no other acute concerns. likely discharge tomorrow.
[2021-08-19] MEDS: Loperamide 2 MG Cap PO PRN (17:54)
[2021-08-19] MEDS: cefTRIAXone 1 GM in Sodium Chloride 0.9% 50 ML IV SCH (20:29)
[2021-08-19] MEDS: Pantoprazole 40 MG Tab.CR PO SCH (20:35)
[2021-08-19] MEDS: Acetaminophen 325 MG Tab PO PRN (20:36)
[2021-08-19] MEDS: Insulin Glarg,Human.Rec.Analog 100 Unit/ML SUBCUT SCH (20:45)
[2021-08-20] MEDS: Loperamide 2 MG Cap PO PRN (03:57)
[2021-08-20] MEDS: Benzonatate 100 MG Cap PO PRN (03:58)
[2021-08-20 06:41] LABS: ANION GAP 14.4 mEq/L (7-13)
[2021-08-20] MEDS: Carvedilol 6.25 MG Tab PO SCH ×2 (08:16→21:58)
[2021-08-20] MEDS: Saccharomyces Boulardii (Probiotic) 250 MG Cap PO SCH ×3 (08:16→21:42)
[2021-08-20] MEDS: Insulin Lispro 100 Units/ML 3 ML Vial SUBCUT SCH ×4 (08:22→21:55)
[2021-08-20] MEDS: Enoxaparin 30 MG/0.3 ML Syringe SUBCUT SCH (08:23)
[2021-08-20] MEDS: Doxycycline 100 MG in Sodium Chloride 0.9% 100 ML IV SCH (08:29)
--- NOTE | 2021-08-20 14:05 | PCM.PN ---
- General Info Date of Service: 08/20/21 Admission Dx/Problem (Free Text): covid 19 viral infection, covid related diarrhea Subjective Update: still having diarrhea today and feels very weak, short of breath with movement and activity. not up or moving much Functional Status: Reports: Pain Controlled, Incentive Spirometry (sporadically). Denies: Tolerating Diet (not eating well) - Review of Systems General: Reports: Weakness, Fatigue. Denies: Fever, Appetite HEENT: Reports: No Symptoms Pulmonary: Reports: Shortness of Breath, Cough. Denies: Pleuritic Chest Pain, Sputum, Hemoptysis, Wheezing Cardiovascular: Reports: Dyspnea on Exertion. Denies: Chest Pain, Edema Gastrointestinal: Reports: Decreased Appetite, Diarrhea. Denies: Abdominal Pain, Nausea, Vomiting Genitourinary: Reports: No Symptoms. Denies: Dysuria, Frequency Musculoskeletal: Reports: No Symptoms Skin: Reports: Other (ulcer on pad of right foor) Neurological: Reports: No Symptoms Psychiatric: Reports: No Symptoms - Patient Data Vitals - Most Recent: Last Vital Signs Temp 98.6 F 08/20/21 12:00 Pulse 73 08/20/21 12:00 Resp 20 08/20/21 12:00 BP 108/63 08/20/21 12:00 Pulse Ox 98 08/20/21 12:00 Weight - Most Recent: 186 lb 4.8 oz I&O - Last 24 Hours: Intake & Output 08/19/21 08/20/21 08/20/21 22:59 06:59 14:59 Intake Total 270 50 300 Balance 270 50 300 Lab Results Last 24 Hours: Laboratory Results - last 24 hr 08/19/21 08/19/21 08/20/21 Range/Units 16:56 20:26 05:55 WBC 8.9 (5.0-10.0) 10^3/uL RBC 3.70 L (4.2-5.4) 10^6/uL Hgb 9.7 L (12.0-16.0) g/dL Hct 29.6 L (37.0-47.0) % MCV 80.0 (80-100) fL MCH 26.2 L (27.0-34.0) pg MCHC 32.8 L (33.0-35.0) g/dL Plt Count 217 (150-450) 10^3/uL Neut % (Auto) 87.4 H (42.2-75.2) % Lymph % (Auto) 8.7 L (20.5-50.1) % Boyle % (Auto) 3.7 (2-8) % Eos % (Auto) 0.1 L (1.0-3.0) % Baso % (Auto) 0.1 (0.0-1.0) % Sodium (136-145) mmol/L Potassium (3.5-5.1) mmol/L Chloride (98-107) mmol/L Carbon Dioxide (21-32) mmol/L Anion Gap (7-13) mEq/L BUN (7-18) mg/dL Creatinine (0.55-1.02) mg/dL Est Cr Clr Drug Dosing mL/min Estimated GFR (MDRD) BUN/Creatinine Ratio (No establ ref range) Glucose (70-99) mg/dL POC Glucose 101 H 120 H (70-99) mg/dL Calcium (8.5-10.1) mg/dL Total Bilirubin (0.2-1.0) mg/dL AST (15-37) U/L ALT (14-59) U/L Alkaline Phosphatase (46-116) U/L Total Protein (6.4-8.2) g/dL Albumin (3.4-5.0) g/dL Globulin Albumin/Globulin Ratio 08/20/21 08/20/21 08/20/21 Range/Units 05:55 08:21 12:05 WBC (5.0-10.0) 10^3/uL RBC (4.2-5.4) 10^6/uL Hgb (12.0-16.0) g/dL Hct (37.0-47.0) % MCV (80-100) fL MCH (27.0-34.0) pg MCHC (33.0-35.0) g/dL Plt Count (150-450) 10^3/uL Neut % (Auto) (42.2-75.2) % Lymph % (Auto) (20.5-50.1) % Boyle % (Auto) (2-8) % Eos % (Auto) (1.0-3.0) % Baso % (Auto) (0.0-1.0) % Sodium 141 (136-145) mmol/L Potassium 3.4 L (3.5-5.1) mmol/L Chloride 107 (98-107) mmol/L Carbon Dioxide 23 (21-32) mmol/L Anion Gap 14.4 H (7-13) mEq/L BUN 16 (7-18) mg/dL Creatinine 1.32 H (0.55-1.02) mg/dL Est Cr Clr Drug Dosing 45.08 mL/min Estimated GFR (MDRD) 42 BUN/Creatinine Ratio 12.1 (No establ ref range) Glucose 80 (70-99) mg/dL POC Glucose 69 L 71 (70-99) mg/dL Calcium 7.8 L (8.5-10.1) mg/dL Total Bilirubin 0.3 (0.2-1.0) mg/dL AST 47 H (15-37) U/L ALT 28 (14-59) U/L Alkaline Phosphatase 52 (46-116) U/L Total Protein 5.1 L (6.4-8.2) g/dL Albumin 2.0 L (3.4-5.0) g/dL Globulin 3.1 Albumin/Globulin Ratio 0.65 Kiko Results Last 24 Hours: Microbiology 08/15/21 22:15 Aerobic Blood Culture - Preliminary Blood - Arm, Right NO GROWTH AFTER 4 DAYS Anaerobic Blood Culture - Preliminary NO GROWTH AFTER 4 DAYS 08/18/21 17:55 Aerobic Blood Culture - Preliminary Blood - Arm, Left NO GROWTH AFTER 1 DAY Anaerobic Blood Culture - Preliminary NO GROWTH AFTER 1 DAY 08/15/21 16:20 Aerobic Blood Culture - Preliminary Blood - Venous - Iv Start NO GROWTH AFTER 4 DAYS Anaerobic Blood Culture - Preliminary NO GROWTH AFTER 4 DAYS Med Orders - Current: Current Medications Acetaminophen (Acetaminophen 325 Mg Tab) 650 mg PO Q4H PRN PRN Reason: Pain (Mild 1-3)/fever Last Admin: 08/19/21 20:36 Dose: 650 mg Documented by: Benzonatate (Benzonatate 100 Mg Cap) 100 mg PO Q8H PRN PRN Reason: Other Last Admin: 08/20/21 03:58 Dose: 100 mg Documented by: Carvedilol (Carvedilol 6.25 Mg Tab) 6.25 mg PO BID JONNY Last Admin: 08/20/21 08:16 Dose: 6.25 mg Documented by: Dextrose/Water (50% Dextrose In Water 50 Ml Syringe) 50 ml IVPUSH Q15M PRN PRN Reason: Hypoglycemia Enoxaparin Sodium (Enoxaparin 30 Mg/0.3 Ml Syringe) 30 mg SUBCUT DAILY [facility] Last Admin: 08/20/21 08:23 Dose: 30 mg Documented by: Glucagon (Glucagon,Human Recombinant 1 Mg Vial) 1 mg IM Q15M PRN PRN Reason: Hypoglycemia Insulin Glargine (Insulin Glarg,Human.Rec.Analog 100 Unit/Ml) 25 unit SUBCUT BEDTIME [facility] Insulin Human Lispro (Insulin Lispro 100 Units/Ml 3 Ml Vial) 0 unit SUBCUT WITHMEALSANDBED [facility]; Protocol Last Admin: 08/20/21 12:30 Dose: Not Given Documented by: Loperamide HCl (Loperamide 2 Mg Cap) 2 mg PO ASDIRECTED PRN PRN Reason: Diarrhea Last Admin: 08/20/21 03:57 Dose: 2 mg Documented by: Ondansetron HCl (Ondansetron 4 Mg Tab.Dis) 4 mg PO Q4H PRN PRN Reason: nausea, able to take PO Last Admin: 08/19/21 20:47 Dose: 4 mg Documented by: Pantoprazole Sodium (Pantoprazole 40 Mg Tab.Cr) 40 mg PO BEDTIME [facility] Last Admin: 08/19/21 20:35 Dose: 40 mg Documented by: Saccharomyces Boulardii (Saccharomyces Boulardii (Probiotic) 250 Mg Cap) 250 mg PO TID [facility] Last Admin: 08/20/21 13:29 Dose: 250 mg Documented by: Sodium Chloride (Sodium Chloride 0.9% 10 Ml Syringe) 10 ml FLUSH ASDIRECTED PRN PRN Reason: Keep Vein Open Last Admin: 08/19/21 08:25 Dose: 10 ml Documented by: Discontinued Medications Albuterol/Ipratropium (Albuterol/Ipratropium 3.0-0.5 Mg/3 Ml Neb Soln) 3 ml NEB Q6HRRT [facility] Last Admin: 08/17/21 00:22 Dose: Not Given Documented by: Bismuth Subsalicylate (Bismuth Subsalicylate 262 Mg Tab.Chew) 524 mg PO Q4H PRN PRN Reason: Diarrhea Last Admin: 08/18/21 21:47 Dose: 524 mg Documented by: Dextrose/Water (50% Dextrose In Water 50 Ml Syringe) 50 ml IVPUSH Q15M PRN PRN Reason: Hypoglycemia Glucagon (Glucagon,Human Recombinant 1 Mg Vial) 1 mg IM Q15M PRN PRN Reason: Hypoglycemia Sodium Chloride (Normal Saline) 1,000 mls @ 999 mls/hr IV .BOLUS ONE Stop: 08/15/21 17:21 Last Admin: 08/15/21 16:33 Dose: 999 mls/hr Documented by: Insulin Regular in 0.9 % NACL (Myxredlin In Ns 100 Unit/100 Ml) 100 unit in 100 mls @ 8.5 mls/hr IV TITRATE [facility]; Protocol Last Admin: 08/15/21 16:34 Dose: 0.1 units/kg/hr, 8.5 mls/hr Documented by: Sodium Chloride (Normal Saline) 1,000 mls @ 125 mls/hr IV ASDIRECTED [facility] Last Infusion: 08/18/21 17:09 Dose: Infused Documented by: Ceftriaxone Sodium 1 gm/ (Sodium Chloride) 50 mls @ 100 mls/hr IV Q24H [facility] Last Admin: 08/19/21 20:29 Dose: 10 mls/hr Documented by: Azithromycin 500 mg/ Sodium (Chloride) 250 mls @ 250 mls/hr IV Q24H [facility] Last Admin: 08/15/21 20:48 Dose: 250 mls/hr Documented by: Doxycycline Hyclate 100 mg/ (Sodium Chloride) 100 mls @ 100 mls/hr IV Q12HR [facility] Last Infusion: 08/20/21 10:03 Dose: Infused Documented by: Magnesium Sulfate 2 gm/ Premix 50 mls @ 25 mls/hr IV ONETIME ONE Stop: 08/18/21 12:43 Last Infusion: 08/18/21 14:14 Dose: Infused Documented by: Lactated Ringer's (Ringers, Lactated) 1,000 mls @ 100 mls/hr IV ASDIRECTED [facility] Last Infusion: 08/18/21 23:00 Dose: 100 mls/hr Documented by: Insulin Glargine (Insulin Glarg,Human.Rec.Analog 100 Unit/Ml) 30 unit SUBCUT BEDTIME [facility] Last Admin: 08/19/21 20:45 Dose: 30 units Documented by: Insulin Glargine (Insulin Glarg,Human.Rec.Analog 100 Unit/Ml) 29 unit SUBCUT BEDTIME [facility] Insulin Human Lispro (Insulin Lispro 100 Units/Ml 3 Ml Vial) 7 unit SUBCUT TIDMEALS [facility] Last Admin: 08/18/21 08:09 Dose: Not Given Documented by: Ondansetron HCl (Ondansetron 4 Mg/2 Ml Sdv) 4 mg IV ONETIME ONE Stop: 08/15/21 16:22 Last Admin: 08/15/21 16:31 Dose: 4 mg Documented by: Potassium Chloride (Potassium Chloride 10 Meq Tab.Er) 40 meq PO ONETIME ONE Stop: 08/18/21 07:48 Last Admin: 08/18/21 08:14 Dose: 40 meq Documented by: Comments:: not feeling well today. weak overall and not much motivation to do things. minimal appetite. - Exam Quality Assessment: Supplemental Oxygen, DVT Prophylaxis, Skin Breakdown (chronic ulcer on pad of right foot). No: Urine Catheter General: Alert, Oriented, No Acute Distress HEENT: EOMI GI/Abdominal Exam: Soft, Non-Tender (Female) Exam: Deferred Back Exam: Full Range of Motion Skin: Warm, Dry Wound/Incisions: No Drainage, Decubitis Psy/Mental Status: Alert, Normal Affect - Patient Data Lab Results Last 24 hrs: Laboratory Results - last 24 hr 08/19/21 08/19/21 08/20/21 Range/Units 16:56 20:26 05:55 WBC 8.9 (5.0-10.0) 10^3/uL RBC 3.70 L (4.2-5.4) 10^6/uL Hgb 9.7 L (12.0-16.0) g/dL Hct 29.6 L (37.0-47.0) % MCV 80.0 (80-100) fL MCH 26.2 L (27.0-34.0) pg MCHC 32.8 L (33.0-35.0) g/dL Plt Count 217 (150-450) 10^3/uL Neut % (Auto) 87.4 H (42.2-75.2) % Lymph % (Auto) 8.7 L (20.5-50.1) % Boyle % (Auto) 3.7 (2-8) % Eos % (Auto) 0.1 L (1.0-3.0) % Baso % (Auto) 0.1 (0.0-1.0) % Sodium (136-145) mmol/L Potassium (3.5-5.1) mmol/L Chloride (98-107) mmol/L Carbon Dioxide (21-32) mmol/L Anion Gap (7-13) mEq/L BUN (7-18) mg/dL Creatinine (0.55-1.02) mg/dL Est Cr Clr Drug Dosing mL/min Estimated GFR (MDRD) BUN/Creatinine Ratio (No establ ref range) Glucose (70-99) mg/dL POC Glucose 101 H 120 H (70-99) mg/dL Calcium (8.5-10.1) mg/dL Total Bilirubin (0.2-1.0) mg/dL AST (15-37) U/L ALT (14-59) U/L Alkaline Phosphatase (46-116) U/L Total Protein (6.4-8.2) g/dL Albumin (3.4-5.0) g/dL Globulin Albumin/Globulin Ratio 08/20/21 08/20/21 08/20/21 Range/Units 05:55 08:21 12:05 WBC (5.0-10.0) 10^3/uL RBC (4.2-5.4) 10^6/uL Hgb (12.0-16.0) g/dL Hct (37.0-47.0) % MCV (80-100) fL MCH (27.0-34.0) pg MCHC (33.0-35.0) g/dL Plt Count (150-450) 10^3/uL Neut % (Auto) (42.2-75.2) % Lymph % (Auto) (20.5-50.1) % Boyle % (Auto) (2-8) % Eos % (Auto) (1.0-3.0) % Baso % (Auto) (0.0-1.0) % Sodium 141 (136-145) mmol/L Potassium 3.4 L (3.5-5.1) mmol/L Chloride 107 (98-107) mmol/L Carbon Dioxide 23 (21-32) mmol/L Anion Gap 14.4 H (7-13) mEq/L BUN 16 (7-18) mg/dL Creatinine 1.32 H (0.55-1.02) mg/dL Est Cr Clr Drug Dosing 45.08 mL/min Estimated GFR (MDRD) 42 BUN/Creatinine Ratio 12.1 (No establ ref range) Glucose 80 (70-99) mg/dL POC Glucose 69 L 71 (70-99) mg/dL Calcium 7.8 L (8.5-10.1) mg/dL Total Bilirubin 0.3 (0.2-1.0) mg/dL AST 47 H (15-37) U/L ALT 28 (14-59) U/L Alkaline Phosphatase 52 (46-116) U/L Total Protein 5.1 L (6.4-8.2) g/dL Albumin 2.0 L (3.4-5.0) g/dL Globulin 3.1 Albumin/Globulin Ratio 0.65 Result Diagrams: 08/20/21 05:55 08/20/21 05:55 Kiko Results Last 24 hrs: Microbiology 08/15/21 22:15 Aerobic Blood Culture - Preliminary Blood - Arm, Right NO GROWTH AFTER 4 DAYS Anaerobic Blood Culture - Preliminary NO GROWTH AFTER 4 DAYS 08/18/21 17:55 Aerobic Blood Culture - Preliminary Blood - Arm, Left NO GROWTH AFTER 1 DAY Anaerobic Blood Culture - Preliminary NO GROWTH AFTER 1 DAY 08/15/21 16:20 Aerobic Blood Culture - Preliminary Blood - Venous - Iv Start NO GROWTH AFTER 4 DAYS Anaerobic Blood Culture - Preliminary NO GROWTH AFTER 4 DAYS Sepsis Event Note - Evaluation Sepsis Screening Result: No Definite Risk - Focused Exam Vital Signs: Vital Signs Temp Pulse Pulse Resp BP BP Pulse Ox 08/20/21 12:00 98.6 F 73 20 108/63 98 08/20/21 08:16 75 121/65 08/20/21 08:00 98.1 F 75 20 121/65 91 L 08/20/21 04:00 97.6 F 64 18 129/65 94 L - Problem List Review Problem List Initiated/Reviewed/Updated: Yes - My Orders Last 24 Hours: My Active Orders 08/19/21 16:47 Loperamide [Imodium] 2 mg PO ASDIRECTED PRN 08/20/21 21:00 Insulin Glarg,Human.Rec.Analog [LantUS] 25 unit SUBCUT BEDTIME - Assessment Assessment:: ACUTE CONDITIONS: Covid 19 viral pneumonia acute respiratory failure with hypoxia 2/2 above - currently requiring 1L supplemental oxygen to maintain saturations >90% - wean oxygen as tolerated - currently does not require dexamethasone or remdesevir. Covid 19 related diarrhea: - PRN imodium as directed DMII, insulin dependent, with hypoglycemia as a complication - decrease home dose glargine 30U at bedtime to 25U at bedtime - POC blood glucose and SSI - hypoglycemia protocol in place CHRONIC CONDITIONS: - chronic ulcer of right foot pad s/p transmetatarsal amputation - CKD Stage III, currently baseline - obesity: BMI 30-34 on admit DVT prophylaxis: subQ heparin Code status: Full code MDM/interval Hx. oxygen requirement up to 2.5L overnight. pt has minimal motivation to get up to chair, eat or use IS. she is being prompted by nursing consistently. will wean oxygen as tolerated. .
[2021-08-20] MEDS ORDERED: REMDESIVIR 200 MG in Sodium Chloride 0.9% 250 ML IV ONE (14:10)
[2021-08-20] MEDS: Dexamethasone 6 MG TABLET PO SCH (15:03)
[2021-08-20] MEDS ORDERED: Insulin Glarg,Human.Rec.Analog 100 Unit/ML SUBCUT SCH (21:00)
[2021-08-20] MEDS: Pantoprazole 40 MG Tab.CR PO SCH (21:42)
[2021-08-20] MEDS: Insulin Glarg,Human.Rec.Analog 100 Unit/ML SUBCUT SCH (21:54)
[2021-08-21] MEDS: Insulin Lispro 100 Units/ML 3 ML Vial SUBCUT SCH ×5 (08:05→20:33)
[2021-08-21] MEDS: Carvedilol 6.25 MG Tab PO SCH ×2 (08:07→20:15)
[2021-08-21] MEDS: Saccharomyces Boulardii (Probiotic) 250 MG Cap PO SCH ×3 (08:08→20:15)
[2021-08-21] MEDS: Enoxaparin 30 MG/0.3 ML Syringe SUBCUT SCH (08:08)
[2021-08-21] MEDS: Dexamethasone 6 MG TABLET PO SCH (08:08)
[2021-08-21] MEDS: Benzonatate 100 MG Cap PO PRN (08:22)
[2021-08-21] MEDS: Ondansetron 4 MG Tab.DIS PO PRN (08:23)
[2021-08-21] MEDS: REMDESIVIR 100 MG in Sodium Chloride 0.9% 100 ML IV SCH (14:28)
--- NOTE | 2021-08-21 15:22 | PCM.PN ---
- General Info Date of Service: 08/21/21 Admission Dx/Problem (Free Text): covid 19 viral infection, covid related diarrhea Subjective Update: up to chair today most of the day. more energy. oxygen requirement up to 6L today but is weaning down as she is up in chair and using IS. She feels much better today than yesterday. Functional Status: Reports: Pain Controlled, Tolerating Diet, Ambulating, Urinating, Incentive Spirometry - Review of Systems General: Reports: Weakness. Denies: Appetite HEENT: Reports: No Symptoms Pulmonary: Reports: Shortness of Breath, Cough, Sputum. Denies: Hemoptysis, Wheezing Cardiovascular: Reports: Dyspnea on Exertion. Denies: Palpitations, Edema Gastrointestinal: Reports: Decreased Appetite, Diarrhea. Denies: Abdominal Pain Genitourinary: Reports: No Symptoms Musculoskeletal: Reports: No Symptoms Skin: Reports: Other (chronic ulcer on pad of right foot) Psychiatric: Reports: No Symptoms - Patient Data Vitals - Most Recent: Last Vital Signs Temp 97.8 F 08/21/21 12:00 Pulse 78 08/21/21 12:00 Resp 20 08/21/21 12:00 BP 145/91 H 08/21/21 12:00 Pulse Ox 98 08/21/21 12:00 Weight - Most Recent: 186 lb 4.8 oz I&O - Last 24 Hours: Intake & Output 08/21/21 08/21/21 08/21/21 06:59 14:59 22:59 Intake Total 200 490 Balance 200 490 Lab Results Last 24 Hours: Laboratory Results - last 24 hr 08/20/21 08/20/21 08/21/21 Range/Units 17:06 21:32 06:20 WBC 6.7 (5.0-10.0) 10^3/uL RBC 4.16 L (4.2-5.4) 10^6/uL Hgb 10.8 L (12.0-16.0) g/dL Hct 33.2 L (37.0-47.0) % MCV 79.8 L (80-100) fL MCH 26.0 L (27.0-34.0) pg MCHC 32.5 L (33.0-35.0) g/dL Plt Count 244 (150-450) 10^3/uL Neut % (Auto) 87.6 H (42.2-75.2) % Lymph % (Auto) 8.1 L (20.5-50.1) % Pratt % (Auto) 4.2 (2-8) % Eos % (Auto) 0.0 L (1.0-3.0) % Baso % (Auto) 0.1 (0.0-1.0) % Add Manual Diff Yes Neutrophils % (Manual) 79 H (42-75) % Band Neutrophils % 5 % Lymphocytes % (Manual) 9 L (20-50) % Monocytes % (Manual) 7 (2-8) % POC Glucose 94 169 H (70-99) mg/dL Direct Bilirubin (0.0-0.2) mg/dL 08/21/21 08/21/21 08/21/21 Range/Units 06:20 07:52 11:44 WBC (5.0-10.0) 10^3/uL RBC (4.2-5.4) 10^6/uL Hgb (12.0-16.0) g/dL Hct (37.0-47.0) % MCV (80-100) fL MCH (27.0-34.0) pg MCHC (33.0-35.0) g/dL Plt Count (150-450) 10^3/uL Neut % (Auto) (42.2-75.2) % Lymph % (Auto) (20.5-50.1) % Pratt % (Auto) (2-8) % Eos % (Auto) (1.0-3.0) % Baso % (Auto) (0.0-1.0) % Add Manual Diff Neutrophils % (Manual) (42-75) % Band Neutrophils % % Lymphocytes % (Manual) (20-50) % Monocytes % (Manual) (2-8) % POC Glucose 171 H 218 H (70-99) mg/dL Direct Bilirubin 0.1 (0.0-0.2) mg/dL Kiko Results Last 24 Hours: Microbiology 08/15/21 22:15 Aerobic Blood Culture - Final Blood - Arm, Right NO GROWTH AFTER 5 DAYS Anaerobic Blood Culture - Final NO GROWTH AFTER 5 DAYS 08/18/21 17:55 Aerobic Blood Culture - Preliminary Blood - Arm, Left NO GROWTH AFTER 2 DAYS Anaerobic Blood Culture - Preliminary NO GROWTH AFTER 2 DAYS 08/15/21 16:20 Aerobic Blood Culture - Final Blood - Venous - Iv Start NO GROWTH AFTER 5 DAYS Anaerobic Blood Culture - Final NO GROWTH AFTER 5 DAYS Med Orders - Current: Current Medications Acetaminophen (Acetaminophen 325 Mg Tab) 650 mg PO Q4H PRN PRN Reason: Pain (Mild 1-3)/fever Last Admin: 08/19/21 20:36 Dose: 650 mg Documented by: Benzonatate (Benzonatate 100 Mg Cap) 100 mg PO Q8H PRN PRN Reason: Other Last Admin: 08/21/21 08:22 Dose: 100 mg Documented by: Carvedilol (Carvedilol 6.25 Mg Tab) 6.25 mg PO BID [facility] Last Admin: 08/21/21 08:07 Dose: 6.25 mg Documented by: Dexamethasone (Dexamethasone 6 Mg Tablet) 6 mg PO DAILY [facility] Stop: 08/29/21 09:01 Last Admin: 08/21/21 08:08 Dose: 6 mg Documented by: Dextrose/Water (50% Dextrose In Water 50 Ml Syringe) 50 ml IVPUSH Q15M PRN PRN Reason: Hypoglycemia Enoxaparin Sodium (Enoxaparin 30 Mg/0.3 Ml Syringe) 30 mg SUBCUT DAILY [facility] Last Admin: 08/21/21 08:08 Dose: 30 mg Documented by: Glucagon (Glucagon,Human Recombinant 1 Mg Vial) 1 mg IM Q15M PRN PRN Reason: Hypoglycemia Remdesivir 100 mg/ Sodium (Chloride) 100 mls @ 100 mls/hr IV Q24H [facility] Stop: 08/24/21 14:59 Last Admin: 08/21/21 14:28 Dose: 100 mls/hr Documented by: Insulin Glargine (Insulin Glarg,Human.Rec.Analog 100 Unit/Ml) 25 unit SUBCUT BEDTIME [facility] Last Admin: 08/20/21 21:54 Dose: 25 units Documented by: Insulin Human Lispro (Insulin Lispro 100 Units/Ml 3 Ml Vial) 0 unit SUBCUT WITHMEALSANDBED [facility]; Protocol Last Admin: 08/21/21 13:30 Dose: 4 units Documented by: Loperamide HCl (Loperamide 2 Mg Cap) 2 mg PO ASDIRECTED PRN PRN Reason: Diarrhea Last Admin: 08/20/21 03:57 Dose: 2 mg Documented by: Ondansetron HCl (Ondansetron 4 Mg Tab.Dis) 4 mg PO Q4H PRN PRN Reason: nausea, able to take PO Last Admin: 08/21/21 08:23 Dose: 4 mg Documented by: Pantoprazole Sodium (Pantoprazole 40 Mg Tab.Cr) 40 mg PO BEDTIME [facility] Last Admin: 08/20/21 21:42 Dose: 40 mg Documented by: Saccharomyces Boulardii (Saccharomyces Boulardii (Probiotic) 250 Mg Cap) 250 mg PO TID [facility] Last Admin: 08/21/21 15:14 Dose: 250 mg Documented by: Sodium Chloride (Sodium Chloride 0.9% 10 Ml Syringe) 10 ml FLUSH ASDIRECTED PRN PRN Reason: Keep Vein Open Last Admin: 08/19/21 08:25 Dose: 10 ml Documented by: Discontinued Medications Albuterol/Ipratropium (Albuterol/Ipratropium 3.0-0.5 Mg/3 Ml Neb Soln) 3 ml NEB Q6HRRT [facility] Last Admin: 08/17/21 00:22 Dose: Not Given Documented by: Bismuth Subsalicylate (Bismuth Subsalicylate 262 Mg Tab.Chew) 524 mg PO Q4H PRN PRN Reason: Diarrhea Last Admin: 08/18/21 21:47 Dose: 524 mg Documented by: Dextrose/Water (50% Dextrose In Water 50 Ml Syringe) 50 ml IVPUSH Q15M PRN PRN Reason: Hypoglycemia Glucagon (Glucagon,Human Recombinant 1 Mg Vial) 1 mg IM Q15M PRN PRN Reason: Hypoglycemia Sodium Chloride (Normal Saline) 1,000 mls @ 999 mls/hr IV .BOLUS ONE Stop: 08/15/21 17:21 Last Admin: 08/15/21 16:33 Dose: 999 mls/hr Documented by: Insulin Regular in 0.9 % NACL (Myxredlin In Ns 100 Unit/100 Ml) 100 unit in 100 mls @ 8.5 mls/hr IV TITRATE [facility]; Protocol Last Admin: 08/15/21 16:34 Dose: 0.1 units/kg/hr, 8.5 mls/hr Documented by: Sodium Chloride (Normal Saline) 1,000 mls @ 125 mls/hr IV ASDIRECTED [facility] Last Infusion: 08/18/21 17:09 Dose: Infused Documented by: Ceftriaxone Sodium 1 gm/ (Sodium Chloride) 50 mls @ 100 mls/hr IV Q24H [facility] Last Admin: 08/19/21 20:29 Dose: 10 mls/hr Documented by: Azithromycin 500 mg/ Sodium (Chloride) 250 mls @ 250 mls/hr IV Q24H [facility] Last Admin: 08/15/21 20:48 Dose: 250 mls/hr Documented by: Doxycycline Hyclate 100 mg/ (Sodium Chloride) 100 mls @ 100 mls/hr IV Q12HR [facility] Last Infusion: 08/20/21 10:03 Dose: Infused Documented by: Magnesium Sulfate 2 gm/ Premix 50 mls @ 25 mls/hr IV ONETIME ONE Stop: 08/18/21 12:43 Last Infusion: 08/18/21 14:14 Dose: Infused Documented by: Lactated Ringer's (Ringers, Lactated) 1,000 mls @ 100 mls/hr IV ASDIRECTED [facility] Last Infusion: 08/18/21 23:00 Dose: 100 mls/hr Documented by: Remdesivir 200 mg/ Sodium (Chloride) 250 mls @ 250 mls/hr IV ONETIME ONE Stop: 08/20/21 15:09 Last Infusion: 08/20/21 17:38 Dose: Infused Documented by: Insulin Glargine (Insulin Glarg,Human.Rec.Analog 100 Unit/Ml) 30 unit SUBCUT BEDTIME [facility] Last Admin: 08/19/21 20:45 Dose: 30 units Documented by: Insulin Glargine (Insulin Glarg,Human.Rec.Analog 100 Unit/Ml) 29 unit SUBCUT BEDTIME [facility] Insulin Human Lispro (Insulin Lispro 100 Units/Ml 3 Ml Vial) 7 unit SUBCUT TIDMEALS [facility] Last Admin: 08/18/21 08:09 Dose: Not Given Documented by: Ondansetron HCl (Ondansetron 4 Mg/2 Ml Sdv) 4 mg IV ONETIME ONE Stop: 08/15/21 16:22 Last Admin: 08/15/21 16:31 Dose: 4 mg Documented by: Potassium Chloride (Potassium Chloride 10 Meq Tab.Er) 40 meq PO ONETIME ONE Stop: 08/18/21 07:48 Last Admin: 08/18/21 08:14 Dose: 40 meq Documented by: - Exam Quality Assessment: Supplemental Oxygen, DVT Prophylaxis. No: Central Line/PICC, Urine Catheter General: Alert, Oriented, Cooperative HEENT: EOMI, Mucous Membr. Moist/[place] Neck: Supple Lungs: Decreased Breath Sounds (throughout bilateral middle and lower lobes). No: Crackles, Rales, Rhonchi, Wheezing Cardiovascular: Regular Rate, Regular Rhythm, No Murmurs. No: Gallops, Rubs GI/Abdominal Exam: Normal Bowel Sounds, Soft, Non-Tender (Female) Exam: Deferred Back Exam: Full Range of Motion Extremities: Normal Range of Motion, Non-Tender, Other (chronic ulcer to right pad of foot) Skin: Warm, Dry Wound/Incisions: Other (see above) Psy/Mental Status: Normal Affect, Normal Mood - Patient Data Lab Results Last 24 hrs: Laboratory Results - last 24 hr 08/20/21 08/20/21 08/21/21 Range/Units 17:06 21:32 06:20 WBC 6.7 (5.0-10.0) 10^3/uL RBC 4.16 L (4.2-5.4) 10^6/uL Hgb 10.8 L (12.0-16.0) g/dL Hct 33.2 L (37.0-47.0) % MCV 79.8 L (80-100) fL MCH 26.0 L (27.0-34.0) pg MCHC 32.5 L (33.0-35.0) g/dL Plt Count 244 (150-450) 10^3/uL Neut % (Auto) 87.6 H (42.2-75.2) % Lymph % (Auto) 8.1 L (20.5-50.1) % Pratt % (Auto) 4.2 (2-8) % Eos % (Auto) 0.0 L (1.0-3.0) % Baso % (Auto) 0.1 (0.0-1.0) % Add Manual Diff Yes Neutrophils % (Manual) 79 H (42-75) % Band Neutrophils % 5 % Lymphocytes % (Manual) 9 L (20-50) % Monocytes % (Manual) 7 (2-8) % POC Glucose 94 169 H (70-99) mg/dL Direct Bilirubin (0.0-0.2) mg/dL 08/21/21 08/21/21 08/21/21 Range/Units 06:20 07:52 11:44 WBC (5.0-10.0) 10^3/uL RBC (4.2-5.4) 10^6/uL Hgb (12.0-16.0) g/dL Hct (37.0-47.0) % MCV (80-100) fL MCH (27.0-34.0) pg MCHC (33.0-35.0) g/dL Plt Count (150-450) 10^3/uL Neut % (Auto) (42.2-75.2) % Lymph % (Auto) (20.5-50.1) % Pratt % (Auto) (2-8) % Eos % (Auto) (1.0-3.0) % Baso % (Auto) (0.0-1.0) % Add Manual Diff Neutrophils % (Manual) (42-75) % Band Neutrophils % % Lymphocytes % (Manual) (20-50) % Monocytes % (Manual) (2-8) % POC Glucose 171 H 218 H (70-99) mg/dL Direct Bilirubin 0.1 (0.0-0.2) mg/dL Result Diagrams: 08/21/21 06:20 08/20/21 05:55 Kiko Results Last 24 hrs: Microbiology 08/15/21 22:15 Aerobic Blood Culture - Final Blood - Arm, Right NO GROWTH AFTER 5 DAYS Anaerobic Blood Culture - Final NO GROWTH AFTER 5 DAYS 08/18/21 17:55 Aerobic Blood Culture - Preliminary Blood - Arm, Left NO GROWTH AFTER 2 DAYS Anaerobic Blood Culture - Preliminary NO GROWTH AFTER 2 DAYS 08/15/21 16:20 Aerobic Blood Culture - Final Blood - Venous - Iv Start NO GROWTH AFTER 5 DAYS Anaerobic Blood Culture - Final NO GROWTH AFTER 5 DAYS Sepsis Event Note - Evaluation Sepsis Screening Result: No Definite Risk - Focused Exam Vital Signs: Vital Signs Temp Pulse Pulse Resp BP BP Pulse Ox 08/21/21 12:00 97.8 F 78 20 145/91 H 98 08/21/21 08:07 76 150/85 H 08/21/21 08:00 96.9 F 78 24 H 150/87 H 08/21/21 04:00 97.7 F 64 18 141/76 H 91 L - Problem List Review Problem List Initiated/Reviewed/Updated: Yes - My Orders Last 24 Hours: My Active Orders 08/20/21 21:00 Insulin Glarg,Human.Rec.Analog [LantUS] 25 unit SUBCUT BEDTIME 08/21/21 14:00 Remdesivir 100 mg Sodium Chloride 0.9% [Normal Saline AdvBag] 100 ml IV Q24H 08/22/21 14:15 BILIRUBIN DIRECT [CHEM] DAILY 08/23/21 14:15 BILIRUBIN DIRECT [CHEM] DAILY 08/24/21 14:15 BILIRUBIN DIRECT [CHEM] DAILY 08/25/21 14:15 BILIRUBIN DIRECT [CHEM] DAILY - Assessment Assessment:: ACUTE CONDITIONS: Covid 19 viral pneumonia acute respiratory failure with hypoxia 2/2 above - currently requiring 4L supplemental oxygen to maintain saturations >90% Plan: - wean oxygen as tolerated - continue dexamethasone and remdesivir (started 08/20/21) - aggressive IS 10x in a row every hour while awake Covid 19 related diarrhea: - PRN imodium as directed DMII, insulin dependent, with hypoglycemia as a complication - decrease home dose glargine 30U at bedtime to 25U at bedtime - POC blood glucose and SSI - hypoglycemia protocol in place CHRONIC CONDITIONS: - chronic ulcer of right foot pad s/p transmetatarsal amputation - CKD Stage III, currently baseline - obesity: BMI 30-34 on admit DVT prophylaxis: subQ heparin Code status: Full code MDM/interval Hx. oxygen requirement increased to 4L overnight and was 6L HF this afternoon prior to getting up to chair and using IS after which it was weaned down slightly. she continues on remdesivir and dexamethasone. She is feeling stronger today. diarrhea is well controlled with imodium. no acute concerns.
[2021-08-21] MEDS: Pantoprazole 40 MG Tab.CR PO SCH (20:15)
[2021-08-21] MEDS: Insulin Glarg,Human.Rec.Analog 100 Unit/ML SUBCUT SCH (20:36)
[2021-08-22 06:54] LABS: ANION GAP 14.8 mEq/L (7-13)
[2021-08-22] MEDS: Saccharomyces Boulardii (Probiotic) 250 MG Cap PO SCH ×3 (08:09→21:07)
[2021-08-22] MEDS: Enoxaparin 30 MG/0.3 ML Syringe SUBCUT SCH (08:10)
[2021-08-22] MEDS: Dexamethasone 6 MG TABLET PO SCH (08:10)
[2021-08-22] MEDS: Carvedilol 6.25 MG Tab PO SCH ×2 (08:10→21:07)
[2021-08-22] MEDS: Insulin Lispro 100 Units/ML 3 ML Vial SUBCUT SCH ×4 (08:11→21:08)
[2021-08-22] MEDS: REMDESIVIR 100 MG in Sodium Chloride 0.9% 100 ML IV SCH (13:37)
--- NOTE | 2021-08-22 14:06 | PCM.PN ---
- General Info Date of Service: 08/22/21 Admission Dx/Problem (Free Text): covid 19 viral infection, covid related diarrhea Subjective Update: up to chair today most of the day. more energy. oxygen requirement up to 6L today but is weaning down as she is up in chair and using IS. She feels much better today than yesterday. Functional Status: Reports: Pain Controlled - Review of Systems General: Reports: Weakness HEENT: Reports: No Symptoms Pulmonary: Reports: Shortness of Breath, Cough, Sputum. Denies: Hemoptysis, Wheezing Cardiovascular: Reports: Dyspnea on Exertion. Denies: Edema, Lightheadedness Gastrointestinal: Reports: Diarrhea. Denies: Abdominal Pain Genitourinary: Reports: No Symptoms Musculoskeletal: Reports: No Symptoms Skin: Reports: No Symptoms Neurological: Reports: No Symptoms Psychiatric: Reports: No Symptoms - Patient Data Vitals - Most Recent: Last Vital Signs Temp 96.6 F L 08/22/21 12:00 Pulse 78 08/22/21 12:00 Resp 20 08/22/21 12:00 BP 141/75 H 08/22/21 12:00 Pulse Ox 90 L 08/22/21 12:00 Weight - Most Recent: 186 lb 4.8 oz I&O - Last 24 Hours: Intake & Output 08/21/21 08/22/21 08/22/21 22:59 06:59 14:59 Intake Total 220 120 Balance 220 120 Lab Results Last 24 Hours: Laboratory Results - last 24 hr 08/21/21 08/21/21 08/22/21 Range/Units 16:24 20:29 06:20 WBC (5.0-10.0) 10^3/uL RBC (4.2-5.4) 10^6/uL Hgb (12.0-16.0) g/dL Hct (37.0-47.0) % MCV (80-100) fL MCH (27.0-34.0) pg MCHC (33.0-35.0) g/dL Plt Count (150-450) 10^3/uL Sodium (136-145) mmol/L Potassium (3.5-5.1) mmol/L Chloride (98-107) mmol/L Carbon Dioxide (21-32) mmol/L Anion Gap (7-13) mEq/L BUN (7-18) mg/dL Creatinine (0.55-1.02) mg/dL Est Cr Clr Drug Dosing mL/min Estimated GFR (MDRD) Glucose (70-99) mg/dL POC Glucose 222 H 319 H (70-99) mg/dL Calcium (8.5-10.1) mg/dL Direct Bilirubin 0.1 (0.0-0.2) mg/dL 08/22/21 08/22/21 08/22/21 Range/Units 06:20 06:20 07:45 WBC 8.6 (5.0-10.0) 10^3/uL RBC 4.19 L (4.2-5.4) 10^6/uL Hgb 10.9 L (12.0-16.0) g/dL Hct 33.2 L (37.0-47.0) % MCV 79.2 L (80-100) fL MCH 26.0 L (27.0-34.0) pg MCHC 32.8 L (33.0-35.0) g/dL Plt Count 286 (150-450) 10^3/uL Sodium 141 (136-145) mmol/L Potassium 3.8 (3.5-5.1) mmol/L Chloride 106 (98-107) mmol/L Carbon Dioxide 24 (21-32) mmol/L Anion Gap 14.8 H (7-13) mEq/L BUN 27 H (7-18) mg/dL Creatinine 1.28 H (0.55-1.02) mg/dL Est Cr Clr Drug Dosing 46.49 mL/min Estimated GFR (MDRD) 43 Glucose 288 H (70-99) mg/dL POC Glucose 269 H (70-99) mg/dL Calcium 8.5 (8.5-10.1) mg/dL Direct Bilirubin (0.0-0.2) mg/dL 08/22/21 Range/Units 11:38 WBC (5.0-10.0) 10^3/uL RBC (4.2-5.4) 10^6/uL Hgb (12.0-16.0) g/dL Hct (37.0-47.0) % MCV (80-100) fL MCH (27.0-34.0) pg MCHC (33.0-35.0) g/dL Plt Count (150-450) 10^3/uL Sodium (136-145) mmol/L Potassium (3.5-5.1) mmol/L Chloride (98-107) mmol/L Carbon Dioxide (21-32) mmol/L Anion Gap (7-13) mEq/L BUN (7-18) mg/dL Creatinine (0.55-1.02) mg/dL Est Cr Clr Drug Dosing mL/min Estimated GFR (MDRD) Glucose (70-99) mg/dL POC Glucose 379 H (70-99) mg/dL Calcium (8.5-10.1) mg/dL Direct Bilirubin (0.0-0.2) mg/dL Kiko Results Last 24 Hours: Microbiology 08/18/21 17:55 Aerobic Blood Culture - Preliminary Blood - Arm, Left NO GROWTH AFTER 3 DAYS Anaerobic Blood Culture - Preliminary NO GROWTH AFTER 3 DAYS Med Orders - Current: Current Medications Acetaminophen (Acetaminophen 325 Mg Tab) 650 mg PO Q4H PRN PRN Reason: Pain (Mild 1-3)/fever Last Admin: 08/19/21 20:36 Dose: 650 mg Documented by: Benzonatate (Benzonatate 100 Mg Cap) 100 mg PO Q8H PRN PRN Reason: Other Last Admin: 08/21/21 08:22 Dose: 100 mg Documented by: Carvedilol (Carvedilol 6.25 Mg Tab) 6.25 mg PO BID [facility] Last Admin: 08/22/21 08:10 Dose: 6.25 mg Documented by: Dexamethasone (Dexamethasone 6 Mg Tablet) 6 mg PO DAILY [facility] Stop: 08/29/21 09:01 Last Admin: 08/22/21 08:10 Dose: 6 mg Documented by: Dextrose/Water (50% Dextrose In Water 50 Ml Syringe) 50 ml IVPUSH Q15M PRN PRN Reason: Hypoglycemia Enoxaparin Sodium (Enoxaparin 30 Mg/0.3 Ml Syringe) 30 mg SUBCUT DAILY [facility] Last Admin: 08/22/21 08:10 Dose: 30 mg Documented by: Glucagon (Glucagon,Human Recombinant 1 Mg Vial) 1 mg IM Q15M PRN PRN Reason: Hypoglycemia Remdesivir 100 mg/ Sodium (Chloride) 100 mls @ 100 mls/hr IV Q24H [facility] Stop: 08/24/21 14:59 Last Admin: 08/22/21 13:37 Dose: 100 mls/hr Documented by: Insulin Glargine (Insulin Glarg,Human.Rec.Analog 100 Unit/Ml) 25 unit SUBCUT BEDTIME [facility] Last Admin: 08/21/21 20:36 Dose: 25 units Documented by: Insulin Human Lispro (Insulin Lispro 100 Units/Ml 3 Ml Vial) 0 unit SUBCUT WITHMEALSANDBED [facility]; Protocol Last Admin: 08/22/21 12:30 Dose: 10 units Documented by: Loperamide HCl (Loperamide 2 Mg Cap) 2 mg PO ASDIRECTED PRN PRN Reason: Diarrhea Last Admin: 08/20/21 03:57 Dose: 2 mg Documented by: Ondansetron HCl (Ondansetron 4 Mg Tab.Dis) 4 mg PO Q4H PRN PRN Reason: nausea, able to take PO Last Admin: 08/21/21 08:23 Dose: 4 mg Documented by: Pantoprazole Sodium (Pantoprazole 40 Mg Tab.Cr) 40 mg PO BEDTIME [facility] Last Admin: 08/21/21 20:15 Dose: 40 mg Documented by: Saccharomyces Boulardii (Saccharomyces Boulardii (Probiotic) 250 Mg Cap) 250 mg PO TID [facility] Last Admin: 08/22/21 13:37 Dose: 250 mg Documented by: Sodium Chloride (Sodium Chloride 0.9% 10 Ml Syringe) 10 ml FLUSH ASDIRECTED PRN PRN Reason: Keep Vein Open Last Admin: 08/19/21 08:25 Dose: 10 ml Documented by: Discontinued Medications Albuterol/Ipratropium (Albuterol/Ipratropium 3.0-0.5 Mg/3 Ml Neb Soln) 3 ml NEB Q6HRRT [facility] Last Admin: 08/17/21 00:22 Dose: Not Given Documented by: Bismuth Subsalicylate (Bismuth Subsalicylate 262 Mg Tab.Chew) 524 mg PO Q4H PRN PRN Reason: Diarrhea Last Admin: 08/18/21 21:47 Dose: 524 mg Documented by: Dextrose/Water (50% Dextrose In Water 50 Ml Syringe) 50 ml IVPUSH Q15M PRN PRN Reason: Hypoglycemia Glucagon (Glucagon,Human Recombinant 1 Mg Vial) 1 mg IM Q15M PRN PRN Reason: Hypoglycemia Sodium Chloride (Normal Saline) 1,000 mls @ 999 mls/hr IV .BOLUS ONE Stop: 08/15/21 17:21 Last Admin: 08/15/21 16:33 Dose: 999 mls/hr Documented by: Insulin Regular in 0.9 % NACL (Myxredlin In Ns 100 Unit/100 Ml) 100 unit in 100 mls @ 8.5 mls/hr IV TITRATE JONNY; Protocol Last Admin: 08/15/21 16:34 Dose: 0.1 units/kg/hr, 8.5 mls/hr Documented by: Sodium Chloride (Normal Saline) 1,000 mls @ 125 mls/hr IV ASDIRECTED [facility] Last Infusion: 08/18/21 17:09 Dose: Infused Documented by: Ceftriaxone Sodium 1 gm/ (Sodium Chloride) 50 mls @ 100 mls/hr IV Q24H [facility] Last Admin: 08/19/21 20:29 Dose: 10 mls/hr Documented by: Azithromycin 500 mg/ Sodium (Chloride) 250 mls @ 250 mls/hr IV Q24H [facility] Last Admin: 08/15/21 20:48 Dose: 250 mls/hr Documented by: Doxycycline Hyclate 100 mg/ (Sodium Chloride) 100 mls @ 100 mls/hr IV Q12HR [facility] Last Infusion: 08/20/21 10:03 Dose: Infused Documented by: Magnesium Sulfate 2 gm/ Premix 50 mls @ 25 mls/hr IV ONETIME ONE Stop: 08/18/21 12:43 Last Infusion: 08/18/21 14:14 Dose: Infused Documented by: Lactated Ringer's (Ringers, Lactated) 1,000 mls @ 100 mls/hr IV ASDIRECTED [facility] Last Infusion: 08/18/21 23:00 Dose: 100 mls/hr Documented by: Remdesivir 200 mg/ Sodium (Chloride) 250 mls @ 250 mls/hr IV ONETIME ONE Stop: 08/20/21 15:09 Last Infusion: 08/20/21 17:38 Dose: Infused Documented by: Insulin Glargine (Insulin Glarg,Human.Rec.Analog 100 Unit/Ml) 30 unit SUBCUT BEDTIME [facility] Last Admin: 08/19/21 20:45 Dose: 30 units Documented by: Insulin Glargine (Insulin Glarg,Human.Rec.Analog 100 Unit/Ml) 29 unit SUBCUT BEDTIME [facility] Insulin Human Lispro (Insulin Lispro 100 Units/Ml 3 Ml Vial) 7 unit SUBCUT TIDMEALS [facility] Last Admin: 08/18/21 08:09 Dose: Not Given Documented by: Ondansetron HCl (Ondansetron 4 Mg/2 Ml Sdv) 4 mg IV ONETIME ONE Stop: 08/15/21 16:22 Last Admin: 08/15/21 16:31 Dose: 4 mg Documented by: Potassium Chloride (Potassium Chloride 10 Meq Tab.Er) 40 meq PO ONETIME ONE Stop: 08/18/21 07:48 Last Admin: 08/18/21 08:14 Dose: 40 meq Documented by: - Exam Quality Assessment: Supplemental Oxygen, DVT Prophylaxis. No: Urine Catheter, Skin Breakdown General: Alert, Oriented, Cooperative, Mild Distress HEENT: EOMI, Other Lungs: Decreased Breath Sounds (bases and middle lobes bilaterally). No: Crackles, Rales, Rhonchi, Rub, Wheezing Cardiovascular: Regular Rate, Regular Rhythm, No Murmurs GI/Abdominal Exam: Soft, Non-Tender (Female) Exam: Deferred Back Exam: Full Range of Motion Extremities: Normal Range of Motion, Non-Tender, No Pedal Edema Skin: Warm, Dry Psy/Mental Status: Alert, Normal Affect, Normal Mood - Patient Data Lab Results Last 24 hrs: Laboratory Results - last 24 hr 08/21/21 08/21/21 08/22/21 Range/Units 16:24 20:29 06:20 WBC (5.0-10.0) 10^3/uL RBC (4.2-5.4) 10^6/uL Hgb (12.0-16.0) g/dL Hct (37.0-47.0) % MCV (80-100) fL MCH (27.0-34.0) pg MCHC (33.0-35.0) g/dL Plt Count (150-450) 10^3/uL Sodium (136-145) mmol/L Potassium (3.5-5.1) mmol/L Chloride (98-107) mmol/L Carbon Dioxide (21-32) mmol/L Anion Gap (7-13) mEq/L BUN (7-18) mg/dL Creatinine (0.55-1.02) mg/dL Est Cr Clr Drug Dosing mL/min Estimated GFR (MDRD) Glucose (70-99) mg/dL POC Glucose 222 H 319 H (70-99) mg/dL Calcium (8.5-10.1) mg/dL Direct Bilirubin 0.1 (0.0-0.2) mg/dL 08/22/21 08/22/21 08/22/21 Range/Units 06:20 06:20 07:45 WBC 8.6 (5.0-10.0) 10^3/uL RBC 4.19 L (4.2-5.4) 10^6/uL Hgb 10.9 L (12.0-16.0) g/dL Hct 33.2 L (37.0-47.0) % MCV 79.2 L (80-100) fL MCH 26.0 L (27.0-34.0) pg MCHC 32.8 L (33.0-35.0) g/dL Plt Count 286 (150-450) 10^3/uL Sodium 141 (136-145) mmol/L Potassium 3.8 (3.5-5.1) mmol/L Chloride 106 (98-107) mmol/L Carbon Dioxide 24 (21-32) mmol/L Anion Gap 14.8 H (7-13) mEq/L BUN 27 H (7-18) mg/dL Creatinine 1.28 H (0.55-1.02) mg/dL Est Cr Clr Drug Dosing 46.49 mL/min Estimated GFR (MDRD) 43 Glucose 288 H (70-99) mg/dL POC Glucose 269 H (70-99) mg/dL Calcium 8.5 (8.5-10.1) mg/dL Direct Bilirubin (0.0-0.2) mg/dL 08/22/21 Range/Units 11:38 WBC (5.0-10.0) 10^3/uL RBC (4.2-5.4) 10^6/uL Hgb (12.0-16.0) g/dL Hct (37.0-47.0) % MCV (80-100) fL MCH (27.0-34.0) pg MCHC (33.0-35.0) g/dL Plt Count (150-450) 10^3/uL Sodium (136-145) mmol/L Potassium (3.5-5.1) mmol/L Chloride (98-107) mmol/L Carbon Dioxide (21-32) mmol/L Anion Gap (7-13) mEq/L BUN (7-18) mg/dL Creatinine (0.55-1.02) mg/dL Est Cr Clr Drug Dosing mL/min Estimated GFR (MDRD) Glucose (70-99) mg/dL POC Glucose 379 H (70-99) mg/dL Calcium (8.5-10.1) mg/dL Direct Bilirubin (0.0-0.2) mg/dL Result Diagrams: 08/22/21 06:20 08/22/21 06:20 Kiko Results Last 24 hrs: Microbiology 08/18/21 17:55 Aerobic Blood Culture - Preliminary Blood - Arm, Left NO GROWTH AFTER 3 DAYS Anaerobic Blood Culture - Preliminary NO GROWTH AFTER 3 DAYS Sepsis Event Note - Evaluation Sepsis Screening Result: No Definite Risk - Focused Exam Vital Signs: Vital Signs Temp Pulse Pulse Resp BP BP Pulse Ox 08/22/21 12:00 96.6 F L 78 20 141/75 H 90 L 08/22/21 08:10 67 118/73 08/22/21 08:00 96.1 F L 67 20 118/73 94 L 08/22/21 04:00 96.7 F L 62 20 168/70 H 91 L - Problem List Review Problem List Initiated/Reviewed/Updated: Yes - My Orders Last 24 Hours: My Active Orders 08/21/21 14:00 Remdesivir 100 mg Sodium Chloride 0.9% [Normal Saline AdvBag] 100 ml IV Q24H 08/21/21 16:52 Activity as Tolerated [RC] .Routine 08/23/21 14:15 BILIRUBIN DIRECT [CHEM] DAILY 08/24/21 14:15 BILIRUBIN DIRECT [CHEM] DAILY 08/25/21 14:15 BILIRUBIN DIRECT [CHEM] DAILY - Assessment Assessment:: ACUTE CONDITIONS: Covid 19 viral pneumonia acute respiratory failure with hypoxia 2/2 above - currently requiring 4L supplemental oxygen to maintain saturations >90% Plan: - wean oxygen as tolerated - continue dexamethasone and remdesivir (started 08/20/21) - aggressive IS 10x in a row every hour while awake Covid 19 related diarrhea: - PRN imodium as directed DMII, insulin dependent, with hypoglycemia as a complication - decrease home dose glargine 30U at bedtime to 25U at bedtime - POC blood glucose and SSI - hypoglycemia protocol in place CHRONIC CONDITIONS: - chronic ulcer of right foot pad s/p transmetatarsal amputation - CKD Stage III, currently baseline - obesity: BMI 30-34 on admit DVT prophylaxis: subQ heparin Code status: Full code MDM/interval Hx. oxygen requirement increased continues on 4L. she continues on remdesivir and dexamethasone. She is feeling stronger today. diarrhea is well controlled with imodium. no acute concerns.
[2021-08-22] MEDS: Pantoprazole 40 MG Tab.CR PO SCH (21:06)
[2021-08-22] MEDS: Insulin Glarg,Human.Rec.Analog 100 Unit/ML SUBCUT SCH (21:09)
--- NOTE | 2021-08-23 06:40 | PCM.PN ---
- General Info Date of Service: 08/23/21 Admission Dx/Problem (Free Text): covid 19 viral infection, covid related diarrhea Subjective Update: Patient states that her shortness of breath is stable to may be slightly increased from the prior day. Was up moving a lot yesterday and, requiring inc reasing oxygen up to 10 L. Patient states that she was prone to most of the night and had improvement in her shortness of breath. Denies any chest pain pressure, abdominal pain, nausea or vomiting. Remainder review of systems is negative except those listed above. - Patient Data Vitals - Most Recent: Last Vital Signs Temp 97.2 F 08/23/21 00:00 Pulse 101 H 08/23/21 00:00 Resp 20 08/23/21 00:00 BP 138/72 08/23/21 00:00 Pulse Ox 97 08/23/21 00:00 Weight - Most Recent: 186 lb 4.8 oz I&O - Last 24 Hours: Intake & Output 08/22/21 08/22/21 08/23/21 14:59 22:59 06:59 Intake Total 120 255 Balance 120 255 Lab Results Last 24 Hours: Laboratory Results - last 24 hr 08/22/21 08/22/21 08/22/21 Range/Units 06:20 06:20 06:20 WBC 8.6 (5.0-10.0) 10^3/uL RBC 4.19 L (4.2-5.4) 10^6/uL Hgb 10.9 L (12.0-16.0) g/dL Hct 33.2 L (37.0-47.0) % MCV 79.2 L (80-100) fL MCH 26.0 L (27.0-34.0) pg MCHC 32.8 L (33.0-35.0) g/dL Plt Count 286 (150-450) 10^3/uL Sodium 141 (136-145) mmol/L Potassium 3.8 (3.5-5.1) mmol/L Chloride 106 (98-107) mmol/L Carbon Dioxide 24 (21-32) mmol/L Anion Gap 14.8 H (7-13) mEq/L BUN 27 H (7-18) mg/dL Creatinine 1.28 H (0.55-1.02) mg/dL Est Cr Clr Drug Dosing 46.49 mL/min Estimated GFR (MDRD) 43 Glucose 288 H (70-99) mg/dL POC Glucose (70-99) mg/dL Calcium 8.5 (8.5-10.1) mg/dL Direct Bilirubin 0.1 (0.0-0.2) mg/dL 08/22/21 08/22/21 08/22/21 Range/Units 07:45 11:38 16:39 WBC (5.0-10.0) 10^3/uL RBC (4.2-5.4) 10^6/uL Hgb (12.0-16.0) g/dL Hct (37.0-47.0) % MCV (80-100) fL MCH (27.0-34.0) pg MCHC (33.0-35.0) g/dL Plt Count (150-450) 10^3/uL Sodium (136-145) mmol/L Potassium (3.5-5.1) mmol/L Chloride (98-107) mmol/L Carbon Dioxide (21-32) mmol/L Anion Gap (7-13) mEq/L BUN (7-18) mg/dL Creatinine (0.55-1.02) mg/dL Est Cr Clr Drug Dosing mL/min Estimated GFR (MDRD) Glucose (70-99) mg/dL POC Glucose 269 H 379 H 336 H (70-99) mg/dL Calcium (8.5-10.1) mg/dL Direct Bilirubin (0.0-0.2) mg/dL 08/22/21 Range/Units 20:19 WBC (5.0-10.0) 10^3/uL RBC (4.2-5.4) 10^6/uL Hgb (12.0-16.0) g/dL Hct (37.0-47.0) % MCV (80-100) fL MCH (27.0-34.0) pg MCHC (33.0-35.0) g/dL Plt Count (150-450) 10^3/uL Sodium (136-145) mmol/L Potassium (3.5-5.1) mmol/L Chloride (98-107) mmol/L Carbon Dioxide (21-32) mmol/L Anion Gap (7-13) mEq/L BUN (7-18) mg/dL Creatinine (0.55-1.02) mg/dL Est Cr Clr Drug Dosing mL/min Estimated GFR (MDRD) Glucose (70-99) mg/dL POC Glucose 294 H (70-99) mg/dL Calcium (8.5-10.1) mg/dL Direct Bilirubin (0.0-0.2) mg/dL Kiko Results Last 24 Hours: Microbiology 08/18/21 17:55 Aerobic Blood Culture - Preliminary Blood - Arm, Left NO GROWTH AFTER 4 DAYS Anaerobic Blood Culture - Preliminary NO GROWTH AFTER 4 DAYS Med Orders - Current: Current Medications Acetaminophen (Acetaminophen 325 Mg Tab) 650 mg PO Q4H PRN PRN Reason: Pain (Mild 1-3)/fever Last Admin: 08/19/21 20:36 Dose: 650 mg Documented by: Benzonatate (Benzonatate 100 Mg Cap) 100 mg PO Q8H PRN PRN Reason: Other Last Admin: 08/21/21 08:22 Dose: 100 mg Documented by: Carvedilol (Carvedilol 6.25 Mg Tab) 6.25 mg PO BID [facility] Last Admin: 08/22/21 21:07 Dose: 6.25 mg Documented by: Dexamethasone (Dexamethasone 6 Mg Tablet) 6 mg PO DAILY [facility] Stop: 08/29/21 09:01 Last Admin: 08/22/21 08:10 Dose: 6 mg Documented by: Dextrose/Water (50% Dextrose In Water 50 Ml Syringe) 50 ml IVPUSH Q15M PRN PRN Reason: Hypoglycemia Enoxaparin Sodium (Enoxaparin 30 Mg/0.3 Ml Syringe) 30 mg SUBCUT DAILY [facility] Last Admin: 08/22/21 08:10 Dose: 30 mg Documented by: Glucagon (Glucagon,Human Recombinant 1 Mg Vial) 1 mg IM Q15M PRN PRN Reason: Hypoglycemia Remdesivir 100 mg/ Sodium (Chloride) 100 mls @ 100 mls/hr IV Q24H [facility] Stop: 08/24/21 14:59 Last Admin: 08/22/21 13:37 Dose: 100 mls/hr Documented by: Insulin Glargine (Insulin Glarg,Human.Rec.Analog 100 Unit/Ml) 25 unit SUBCUT BEDTIME [facility] Last Admin: 08/22/21 21:09 Dose: 25 units Documented by: Insulin Human Lispro (Insulin Lispro 100 Units/Ml 3 Ml Vial) 0 unit SUBCUT WITHMEALSANDBED [facility]; Protocol Last Admin: 08/22/21 21:08 Dose: 6 units Documented by: Loperamide HCl (Loperamide 2 Mg Cap) 2 mg PO ASDIRECTED PRN PRN Reason: Diarrhea Last Admin: 08/20/21 03:57 Dose: 2 mg Documented by: Ondansetron HCl (Ondansetron 4 Mg Tab.Dis) 4 mg PO Q4H PRN PRN Reason: nausea, able to take PO Last Admin: 08/21/21 08:23 Dose: 4 mg Documented by: Pantoprazole Sodium (Pantoprazole 40 Mg Tab.Cr) 40 mg PO BEDTIME [facility] Last Admin: 08/22/21 21:06 Dose: 40 mg Documented by: Saccharomyces Boulardii (Saccharomyces Boulardii (Probiotic) 250 Mg Cap) 250 mg PO TID [facility] Last Admin: 08/22/21 21:07 Dose: 250 mg Documented by: Sodium Chloride (Sodium Chloride 0.9% 10 Ml Syringe) 10 ml FLUSH ASDIRECTED PRN PRN Reason: Keep Vein Open Last Admin: 08/19/21 08:25 Dose: 10 ml Documented by: Discontinued Medications Albuterol/Ipratropium (Albuterol/Ipratropium 3.0-0.5 Mg/3 Ml Neb Soln) 3 ml NEB Q6HRRT [facility] Last Admin: 08/17/21 00:22 Dose: Not Given Documented by: Bismuth Subsalicylate (Bismuth Subsalicylate 262 Mg Tab.Chew) 524 mg PO Q4H PRN PRN Reason: Diarrhea Last Admin: 08/18/21 21:47 Dose: 524 mg Documented by: Dextrose/Water (50% Dextrose In Water 50 Ml Syringe) 50 ml IVPUSH Q15M PRN PRN Reason: Hypoglycemia Glucagon (Glucagon,Human Recombinant 1 Mg Vial) 1 mg IM Q15M PRN PRN Reason: Hypoglycemia Sodium Chloride (Normal Saline) 1,000 mls @ 999 mls/hr IV .BOLUS ONE Stop: 08/15/21 17:21 Last Admin: 08/15/21 16:33 Dose: 999 mls/hr Documented by: Insulin Regular in 0.9 % NACL (Myxredlin In Ns 100 Unit/100 Ml) 100 unit in 100 mls @ 8.5 mls/hr IV TITRATE JONNY; Protocol Last Admin: 08/15/21 16:34 Dose: 0.1 units/kg/hr, 8.5 mls/hr Documented by: Sodium Chloride (Normal Saline) 1,000 mls @ 125 mls/hr IV ASDIRECTED [facility] Last Infusion: 08/18/21 17:09 Dose: Infused Documented by: Ceftriaxone Sodium 1 gm/ (Sodium Chloride) 50 mls @ 100 mls/hr IV Q24H [facility] Last Admin: 08/19/21 20:29 Dose: 10 mls/hr Documented by: Azithromycin 500 mg/ Sodium (Chloride) 250 mls @ 250 mls/hr IV Q24H [facility] Last Admin: 08/15/21 20:48 Dose: 250 mls/hr Documented by: Doxycycline Hyclate 100 mg/ (Sodium Chloride) 100 mls @ 100 mls/hr IV Q12HR [facility] Last Infusion: 08/20/21 10:03 Dose: Infused Documented by: Magnesium Sulfate 2 gm/ Premix 50 mls @ 25 mls/hr IV ONETIME ONE Stop: 08/18/21 12:43 Last Infusion: 08/18/21 14:14 Dose: Infused Documented by: Lactated Ringer's (Ringers, Lactated) 1,000 mls @ 100 mls/hr IV ASDIRECTED [facility] Last Infusion: 08/18/21 23:00 Dose: 100 mls/hr Documented by: Remdesivir 200 mg/ Sodium (Chloride) 250 mls @ 250 mls/hr IV ONETIME ONE Stop: 08/20/21 15:09 Last Infusion: 08/20/21 17:38 Dose: Infused Documented by: Insulin Glargine (Insulin Glarg,Human.Rec.Analog 100 Unit/Ml) 30 unit SUBCUT BEDTIME [facility] Last Admin: 08/19/21 20:45 Dose: 30 units Documented by: Insulin Glargine (Insulin Glarg,Human.Rec.Analog 100 Unit/Ml) 29 unit SUBCUT BEDTIME [facility] Insulin Human Lispro (Insulin Lispro 100 Units/Ml 3 Ml Vial) 7 unit SUBCUT TIDMEALS [facility] Last Admin: 08/18/21 08:09 Dose: Not Given Documented by: Ondansetron HCl (Ondansetron 4 Mg/2 Ml Sdv) 4 mg IV ONETIME ONE Stop: 08/15/21 16:22 Last Admin: 08/15/21 16:31 Dose: 4 mg Documented by: Potassium Chloride (Potassium Chloride 10 Meq Tab.Er) 40 meq PO ONETIME ONE Stop: 08/18/21 07:48 Last Admin: 08/18/21 08:14 Dose: 40 meq Documented by: - Exam Quality Assessment: Supplemental Oxygen General: Alert, Oriented, Moderate Distress (moderate respiratory distress) HEENT: Pupils Equal Lungs: Decreased Breath Sounds (Significant crackles noted in upper and lower lung briggs) Cardiovascular: Regular Rate, Regular Rhythm GI/Abdominal Exam: Normal Bowel Sounds, Soft Back Exam: Normal Inspection Extremities: Normal Inspection, Normal Range of Motion Peripheral Pulses: 2+: Radial (L), Radial (R) Skin: Warm Neurological: No New Focal Deficit Psy/Mental Status: Alert - Patient Data Lab Results Last 24 hrs: Laboratory Results - last 24 hr 08/22/21 08/22/21 08/22/21 Range/Units 06:20 06:20 06:20 WBC 8.6 (5.0-10.0) 10^3/uL RBC 4.19 L (4.2-5.4) 10^6/uL Hgb 10.9 L (12.0-16.0) g/dL Hct 33.2 L (37.0-47.0) % MCV 79.2 L (80-100) fL MCH 26.0 L (27.0-34.0) pg MCHC 32.8 L (33.0-35.0) g/dL Plt Count 286 (150-450) 10^3/uL Sodium 141 (136-145) mmol/L Potassium 3.8 (3.5-5.1) mmol/L Chloride 106 (98-107) mmol/L Carbon Dioxide 24 (21-32) mmol/L Anion Gap 14.8 H (7-13) mEq/L BUN 27 H (7-18) mg/dL Creatinine 1.28 H (0.55-1.02) mg/dL Est Cr Clr Drug Dosing 46.49 mL/min Estimated GFR (MDRD) 43 Glucose 288 H (70-99) mg/dL POC Glucose (70-99) mg/dL Calcium 8.5 (8.5-10.1) mg/dL Direct Bilirubin 0.1 (0.0-0.2) mg/dL 08/22/21 08/22/21 08/22/21 Range/Units 07:45 11:38 16:39 WBC (5.0-10.0) 10^3/uL RBC (4.2-5.4) 10^6/uL Hgb (12.0-16.0) g/dL Hct (37.0-47.0) % MCV (80-100) fL MCH (27.0-34.0) pg MCHC (33.0-35.0) g/dL Plt Count (150-450) 10^3/uL Sodium (136-145) mmol/L Potassium (3.5-5.1) mmol/L Chloride (98-107) mmol/L Carbon Dioxide (21-32) mmol/L Anion Gap (7-13) mEq/L BUN (7-18) mg/dL Creatinine (0.55-1.02) mg/dL Est Cr Clr Drug Dosing mL/min Estimated GFR (MDRD) Glucose (70-99) mg/dL POC Glucose 269 H 379 H 336 H (70-99) mg/dL Calcium (8.5-10.1) mg/dL Direct Bilirubin (0.0-0.2) mg/dL 08/22/21 Range/Units 20:19 WBC (5.0-10.0) 10^3/uL RBC (4.2-5.4) 10^6/uL Hgb (12.0-16.0) g/dL Hct (37.0-47.0) % MCV (80-100) fL MCH (27.0-34.0) pg MCHC (33.0-35.0) g/dL Plt Count (150-450) 10^3/uL Sodium (136-145) mmol/L Potassium (3.5-5.1) mmol/L Chloride (98-107) mmol/L Carbon Dioxide (21-32) mmol/L Anion Gap (7-13) mEq/L BUN (7-18) mg/dL Creatinine (0.55-1.02) mg/dL Est Cr Clr Drug Dosing mL/min Estimated GFR (MDRD) Glucose (70-99) mg/dL POC Glucose 294 H (70-99) mg/dL Calcium (8.5-10.1) mg/dL Direct Bilirubin (0.0-0.2) mg/dL Result Diagrams: 08/22/21 06:20 08/22/21 06:20 Kiko Results Last 24 hrs: Microbiology 08/18/21 17:55 Aerobic Blood Culture - Preliminary Blood - Arm, Left NO GROWTH AFTER 4 DAYS Anaerobic Blood Culture - Preliminary NO GROWTH AFTER 4 DAYS Sepsis Event Note - Evaluation Sepsis Screening Result: No Definite Risk - Focused Exam Vital Signs: Vital Signs Temp Pulse Pulse Resp BP BP Pulse Ox 08/23/21 00:00 97.2 F 101 H 20 138/72 97 08/22/21 21:07 105 H 149/86 H 08/22/21 20:00 97.0 F 105 H 18 149/86 H 98 08/22/21 19:00 Pulse Ox 08/23/21 00:00 08/22/21 21:07 08/22/21 20:00 08/22/21 19:00 97 - Problem List & Annotations (1) Acute respiratory failure with hypoxia SNOMED Code(s): 63893756, 590982672 Code(s): J96.01 - ACUTE RESPIRATORY FAILURE WITH HYPOXIA Status: Acute Current Visit: Yes (2) Gastroenteritis due to COVID-19 virus SNOMED Code(s): 683872202 Code(s): U07.1 - COVID-19; A08.39 - OTHER VIRAL ENTERITIS Status: Acute Current Visit: No (3) Hyperglycemia due to type 2 diabetes mellitus SNOMED Code(s): 794450721303177, 926763474533780 Code(s): E11.65 - TYPE 2 DIABETES MELLITUS WITH HYPERGLYCEMIA Status: Acute Current Visit: No Qualifiers: Diabetes mellitus mcc insulin use: with senior 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 Qualified Code (s): E11.65 - Type 2 diabetes mellitus with hyperglycemia; 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 (4) Pneumonia due to COVID-19 virus SNOMED Code(s): 049884095464837863 Code(s): U07.1 - COVID-19; J12.82 - PNEUMONIA DUE TO CORONAVIRUS DISEASE 2019 Status: Acute Current Visit: No (5) CKD stage 3 due to type 2 diabetes mellitus SNOMED Code(s): 362491310061 Code(s): E11.22 - TYPE 2 DIABETES MELLITUS W DIABETIC CHRONIC KIDNEY DISEASE; N18.30 - CHRONIC KIDNEY DISEASE, STAGE 3 UNSPECIFIED Status: Acute Current Visit: Yes - Problem List Review Problem List Initiated/Reviewed/Updated: Yes - Assessment Assessment:: ACUTE CONDITIONS: Covid 19 viral pneumonia acute respiratory failure with hypoxia 2/2 above - currently requiring 12L supplemental oxygen to maintain saturations >90% - wean oxygen as tolerated continue dexamethasone and remdesivir (started 08/20/21) - aggressive IS 10x in a row every hour while awake - laboratory testing per protocol Covid 19 related diarrhea: - PRN imodium as directed DMII, insulin dependent, with hypoglycemia as a complication CHRONIC CONDITIONS: - chronic ulcer of right foot pad s/p transmetatarsal amputation - CKD Stage III, currently baseline - obesity: BMI 30-34 on admit DVT prophylaxis: subQ heparin Code status: Full - Plan Plan:: ACUTE CONDITIONS: Covid 19 viral pneumonia acute respiratory failure with hypoxia 2/2 above - currently requiring 12L supplemental oxygen to maintain saturations >90% - wean oxygen as tolerated - full code - continue dexamethasone and remdesivir (started 08/20/21) - aggressive IS 10x in a row every hour while awake - laboratory testing per protocol Covid 19 related diarrhea: - PRN imodium as directed DMII, insulin dependent - glargine increased to 30 units given hyperglycemia - POC blood glucose and SSI - hypoglycemia protocol in place CHRONIC CONDITIONS: - chronic ulcer of right foot pad s/p transmetatarsal amputation - CKD Stage III, currently baseline - obesity: BMI 30-34 on admit DVT prophylaxis: subQ heparin Code status: Full Dispo: Continued inpatient status given hypoxic respiratory failure secondary to COVID-19 pneumonia
[2021-08-23] MEDS: Saccharomyces Boulardii (Probiotic) 250 MG Cap PO SCH ×3 (09:01→20:48)
[2021-08-23] MEDS: Insulin Lispro 100 Units/ML 3 ML Vial SUBCUT SCH ×4 (09:01→20:56)
[2021-08-23] MEDS: Carvedilol 6.25 MG Tab PO SCH ×2 (09:01→20:48)
[2021-08-23] MEDS: Dexamethasone 6 MG TABLET PO SCH (09:02)
[2021-08-23] MEDS: Enoxaparin 30 MG/0.3 ML Syringe SUBCUT SCH (09:02)
[2021-08-23] MEDS: REMDESIVIR 100 MG in Sodium Chloride 0.9% 100 ML IV SCH (14:33)
[2021-08-23] MEDS: Benzonatate 100 MG Cap PO PRN (17:51)
[2021-08-23] MEDS: Pantoprazole 40 MG Tab.CR PO SCH (20:48)
[2021-08-23] MEDS: Insulin Glarg,Human.Rec.Analog 100 Unit/ML SUBCUT SCH (20:55)
--- NOTE | 2021-08-24 07:04 | PCM.PN ---
- General Info Date of Service: 08/24/21 Admission Dx/Problem (Free Text): covid 19 viral infection, covid related diarrhea Subjective Update: Patient states that her breathing is significantly improved from prior day, she is improved to 10 L nasal cannula. Denies any chest pain pressure, abdominal pain, nausea or vomiting. Remainder review of systems is negative except those listed above. - Patient Data Vitals - Most Recent: Last Vital Signs Temp 97.9 F 08/24/21 04:00 Pulse 62 08/24/21 04:00 Resp 20 08/24/21 04:00 BP 150/80 H 08/24/21 04:00 Pulse Ox 95 08/24/21 04:00 Weight - Most Recent: 186 lb 4.8 oz I&O - Last 24 Hours: Intake & Output 08/23/21 08/24/21 08/24/21 22:59 06:59 14:59 Intake Total 220 Balance 220 Lab Results Last 24 Hours: Laboratory Results - last 24 hr 08/23/21 08/23/21 08/23/21 Range/Units 08:26 12:36 16:20 WBC (5.0-10.0) 10^3/uL RBC (4.2-5.4) 10^6/uL Hgb (12.0-16.0) g/dL Hct (37.0-47.0) % MCV (80-100) fL MCH (27.0-34.0) pg MCHC (33.0-35.0) g/dL Plt Count (150-450) 10^3/uL Neut % (Auto) (42.2-75.2) % Lymph % (Auto) (20.5-50.1) % Letcher % (Auto) (2-8) % Eos % (Auto) (1.0-3.0) % Baso % (Auto) (0.0-1.0) % POC Glucose 234 H 284 H 311 H (70-99) mg/dL 08/23/21 08/24/21 Range/Units 20:40 06:30 WBC 11.1 H (5.0-10.0) 10^3/uL RBC 4.24 (4.2-5.4) 10^6/uL Hgb 11.0 L (12.0-16.0) g/dL Hct 33.7 L (37.0-47.0) % MCV 79.5 L (80-100) fL MCH 25.9 L (27.0-34.0) pg MCHC 32.6 L (33.0-35.0) g/dL Plt Count 332 (150-450) 10^3/uL Neut % (Auto) 83.4 H (42.2-75.2) % Lymph % (Auto) 5.3 L (20.5-50.1) % Letcher % (Auto) 11.2 H (2-8) % Eos % (Auto) 0.0 L (1.0-3.0) % Baso % (Auto) 0.1 (0.0-1.0) % POC Glucose 321 H (70-99) mg/dL Kiko Results Last 24 Hours: Microbiology 08/18/21 17:55 Aerobic Blood Culture - Final Blood - Arm, Left NO GROWTH AFTER 5 DAYS Anaerobic Blood Culture - Final NO GROWTH AFTER 5 DAYS Med Orders - Current: Current Medications Acetaminophen (Acetaminophen 325 Mg Tab) 650 mg PO Q4H PRN PRN Reason: Pain (Mild 1-3)/fever Last Admin: 08/19/21 20:36 Dose: 650 mg Documented by: Benzonatate (Benzonatate 100 Mg Cap) 100 mg PO Q8H PRN PRN Reason: Other Last Admin: 08/23/21 17:51 Dose: 100 mg Documented by: Carvedilol (Carvedilol 6.25 Mg Tab) 6.25 mg PO BID [facility] Last Admin: 08/23/21 20:48 Dose: 6.25 mg Documented by: Dexamethasone (Dexamethasone 6 Mg Tablet) 6 mg PO DAILY [facility] Stop: 08/29/21 09:01 Last Admin: 08/23/21 09:02 Dose: 6 mg Documented by: Dextrose/Water (50% Dextrose In Water 50 Ml Syringe) 50 ml IVPUSH Q15M PRN PRN Reason: Hypoglycemia Enoxaparin Sodium (Enoxaparin 30 Mg/0.3 Ml Syringe) 30 mg SUBCUT DAILY [facility] Last Admin: 08/23/21 09:02 Dose: 30 mg Documented by: Glucagon (Glucagon,Human Recombinant 1 Mg Vial) 1 mg IM Q15M PRN PRN Reason: Hypoglycemia Remdesivir 100 mg/ Sodium (Chloride) 100 mls @ 100 mls/hr IV Q24H [facility] Stop: 08/24/21 14:59 Last Infusion: 08/23/21 16:00 Dose: Infused Documented by: Insulin Glargine (Insulin Glarg,Human.Rec.Analog 100 Unit/Ml) 30 unit SUBCUT BEDTIME [facility] Last Admin: 08/23/21 20:55 Dose: 30 units Documented by: Insulin Human Lispro (Insulin Lispro 100 Units/Ml 3 Ml Vial) 0 unit SUBCUT WITHMEALSANDBED [facility]; Protocol Last Admin: 08/23/21 20:56 Dose: 8 units Documented by: Loperamide HCl (Loperamide 2 Mg Cap) 2 mg PO ASDIRECTED PRN PRN Reason: Diarrhea Last Admin: 08/20/21 03:57 Dose: 2 mg Documented by: Ondansetron HCl (Ondansetron 4 Mg Tab.Dis) 4 mg PO Q4H PRN PRN Reason: nausea, able to take PO Last Admin: 08/21/21 08:23 Dose: 4 mg Documented by: Pantoprazole Sodium (Pantoprazole 40 Mg Tab.Cr) 40 mg PO BEDTIME [facility] Last Admin: 08/23/21 20:48 Dose: 40 mg Documented by: Saccharomyces Boulardii (Saccharomyces Boulardii (Probiotic) 250 Mg Cap) 250 mg PO TID [facility] Last Admin: 08/23/21 20:48 Dose: 250 mg Documented by: Sodium Chloride (Sodium Chloride 0.9% 10 Ml Syringe) 10 ml FLUSH ASDIRECTED PRN PRN Reason: Keep Vein Open Last Admin: 08/19/21 08:25 Dose: 10 ml Documented by: Discontinued Medications Albuterol/Ipratropium (Albuterol/Ipratropium 3.0-0.5 Mg/3 Ml Neb Soln) 3 ml NEB Q6HRRT [facility] Last Admin: 08/17/21 00:22 Dose: Not Given Documented by: Bismuth Subsalicylate (Bismuth Subsalicylate 262 Mg Tab.Chew) 524 mg PO Q4H PRN PRN Reason: Diarrhea Last Admin: 08/18/21 21:47 Dose: 524 mg Documented by: Dextrose/Water (50% Dextrose In Water 50 Ml Syringe) 50 ml IVPUSH Q15M PRN PRN Reason: Hypoglycemia Glucagon (Glucagon,Human Recombinant 1 Mg Vial) 1 mg IM Q15M PRN PRN Reason: Hypoglycemia Sodium Chloride (Normal Saline) 1,000 mls @ 999 mls/hr IV .BOLUS ONE Stop: 08/15/21 17:21 Last Admin: 08/15/21 16:33 Dose: 999 mls/hr Documented by: Insulin Regular in 0.9 % NACL (Myxredlin In Ns 100 Unit/100 Ml) 100 unit in 100 mls @ 8.5 mls/hr IV TITRATE [facility]; Protocol Last Admin: 08/15/21 16:34 Dose: 0.1 units/kg/hr, 8.5 mls/hr Documented by: Sodium Chloride (Normal Saline) 1,000 mls @ 125 mls/hr IV ASDIRECTED [facility] Last Infusion: 08/18/21 17:09 Dose: Infused Documented by: Ceftriaxone Sodium 1 gm/ (Sodium Chloride) 50 mls @ 100 mls/hr IV Q24H [facility] Last Admin: 08/19/21 20:29 Dose: 10 mls/hr Documented by: Azithromycin 500 mg/ Sodium (Chloride) 250 mls @ 250 mls/hr IV Q24H [facility] Last Admin: 08/15/21 20:48 Dose: 250 mls/hr Documented by: Doxycycline Hyclate 100 mg/ (Sodium Chloride) 100 mls @ 100 mls/hr IV Q12HR [facility] Last Infusion: 08/20/21 10:03 Dose: Infused Documented by: Magnesium Sulfate 2 gm/ Premix 50 mls @ 25 mls/hr IV ONETIME ONE Stop: 08/18/21 12:43 Last Infusion: 08/18/21 14:14 Dose: Infused Documented by: Lactated Ringer's (Ringers, Lactated) 1,000 mls @ 100 mls/hr IV ASDIRECTED [facility] Last Infusion: 08/18/21 23:00 Dose: 100 mls/hr Documented by: Remdesivir 200 mg/ Sodium (Chloride) 250 mls @ 250 mls/hr IV ONETIME ONE Stop: 08/20/21 15:09 Last Infusion: 08/20/21 17:38 Dose: Infused Documented by: Insulin Glargine (Insulin Glarg,Human.Rec.Analog 100 Unit/Ml) 30 unit SUBCUT BEDTIME [facility] Last Admin: 08/19/21 20:45 Dose: 30 units Documented by: Insulin Glargine (Insulin Glarg,Human.Rec.Analog 100 Unit/Ml) 29 unit SUBCUT BEDTIME JONNY Insulin Glargine (Insulin Glarg,Human.Rec.Analog 100 Unit/Ml) 25 unit SUBCUT BEDTIME [facility] Last Admin: 08/22/21 21:09 Dose: 25 units Documented by: Insulin Human Lispro (Insulin Lispro 100 Units/Ml 3 Ml Vial) 7 unit SUBCUT TIDMEALS [facility] Last Admin: 08/18/21 08:09 Dose: Not Given Documented by: Ondansetron HCl (Ondansetron 4 Mg/2 Ml Sdv) 4 mg IV ONETIME ONE Stop: 08/15/21 16:22 Last Admin: 08/15/21 16:31 Dose: 4 mg Documented by: Potassium Chloride (Potassium Chloride 10 Meq Tab.Er) 40 meq PO ONETIME ONE Stop: 08/18/21 07:48 Last Admin: 08/18/21 08:14 Dose: 40 meq Documented by: - Exam Quality Assessment: Supplemental Oxygen General: Alert, Oriented HEENT: Pupils Equal Neck: Supple Lungs: Decreased Breath Sounds, Crackles, Wheezing Cardiovascular: Regular Rate, Regular Rhythm GI/Abdominal Exam: Normal Bowel Sounds, Soft Back Exam: Normal Inspection Extremities: Normal Inspection, Normal Range of Motion Peripheral Pulses: 2+: Radial (L), Radial (R) Skin: Warm, Dry Neurological: No New Focal Deficit Psy/Mental Status: Alert - Patient Data Lab Results Last 24 hrs: Laboratory Results - last 24 hr 08/23/21 08/23/21 08/23/21 Range/Units 08:26 12:36 16:20 WBC (5.0-10.0) 10^3/uL RBC (4.2-5.4) 10^6/uL Hgb (12.0-16.0) g/dL Hct (37.0-47.0) % MCV (80-100) fL MCH (27.0-34.0) pg MCHC (33.0-35.0) g/dL Plt Count (150-450) 10^3/uL Neut % (Auto) (42.2-75.2) % Lymph % (Auto) (20.5-50.1) % Letcher % (Auto) (2-8) % Eos % (Auto) (1.0-3.0) % Baso % (Auto) (0.0-1.0) % POC Glucose 234 H 284 H 311 H (70-99) mg/dL 08/23/21 08/24/21 Range/Units 20:40 06:30 WBC 11.1 H (5.0-10.0) 10^3/uL RBC 4.24 (4.2-5.4) 10^6/uL Hgb 11.0 L (12.0-16.0) g/dL Hct 33.7 L (37.0-47.0) % MCV 79.5 L (80-100) fL MCH 25.9 L (27.0-34.0) pg MCHC 32.6 L (33.0-35.0) g/dL Plt Count 332 (150-450) 10^3/uL Neut % (Auto) 83.4 H (42.2-75.2) % Lymph % (Auto) 5.3 L (20.5-50.1) % Letcher % (Auto) 11.2 H (2-8) % Eos % (Auto) 0.0 L (1.0-3.0) % Baso % (Auto) 0.1 (0.0-1.0) % POC Glucose 321 H (70-99) mg/dL Result Diagrams: 08/24/21 06:30 08/24/21 06:30 Kiko Results Last 24 hrs: Microbiology 08/18/21 17:55 Aerobic Blood Culture - Final Blood - Arm, Left NO GROWTH AFTER 5 DAYS Anaerobic Blood Culture - Final NO GROWTH AFTER 5 DAYS Sepsis Event Note - Evaluation Sepsis Screening Result: No Definite Risk - Focused Exam Vital Signs: Vital Signs Temp Pulse Pulse Resp BP BP Pulse Ox 08/24/21 04:00 97.9 F 62 20 150/80 H 95 08/24/21 00:00 98.3 F 64 18 143/82 H 94 L 08/23/21 20:48 72 138/79 08/23/21 20:00 96.0 F L 74 18 138/79 95 - Problem List & Annotations (1) Acute respiratory failure with hypoxia SNOMED Code(s): 19661657, 095226391 Code(s): J96.01 - ACUTE RESPIRATORY FAILURE WITH HYPOXIA Status: Acute Current Visit: Yes (2) Gastroenteritis due to COVID-19 virus SNOMED Code(s): 243002732 Code(s): U07.1 - COVID-19; A08.39 - OTHER VIRAL ENTERITIS Status: Acute Current Visit: No (3) Hyperglycemia due to type 2 diabetes mellitus SNOMED Code(s): 532038847087677, 319159443273871 Code(s): E11.65 - TYPE 2 DIABETES MELLITUS WITH HYPERGLYCEMIA Status: Acute Current Visit: No Qualifiers: Diabetes mellitus skilled nursing insulin use: with skilled nursing use Qualified Code(s): E11.65 - Type 2 diabetes mellitus with hyperglycemia; Z79.4 - [employer] (current) use of insulin (4) Pneumonia due to COVID-19 virus SNOMED Code(s): 708561143358549501 Code(s): U07.1 - COVID-19; J12.82 - PNEUMONIA DUE TO CORONAVIRUS DISEASE 2019 Status: Acute Current Visit: No (5) CKD stage 3 due to type 2 diabetes mellitus SNOMED Code(s): 480966490298 Code(s): E11.22 - TYPE 2 DIABETES MELLITUS W DIABETIC CHRONIC KIDNEY DISEASE; N18.30 - CHRONIC KIDNEY DISEASE, STAGE 3 UNSPECIFIED Status: Acute Current Visit: Yes - Problem List Review Problem List Initiated/Reviewed/Updated: Yes - My Orders Last 24 Hours: My Active Orders 08/23/21 21:00 Insulin Glarg,Human.Rec.Analog [LantUS] 30 unit SUBCUT BEDTIME 08/24/21 06:30 COMPREHENSIVE METABOLIC PN,CMP [CHEM] AM - Plan Plan:: ACUTE CONDITIONS: Covid 19 viral pneumonia acute respiratory failure with hypoxia 2/2 above - currently requiring 10L supplemental oxygen to maintain saturations >90% - improved from prior day - wean oxygen as tolerated - full code - continue dexamethasone and remdesivir (started 08/20/21) - aggressive IS 10x in a row every hour while awake - laboratory testing per protocol Covid 19 related diarrhea: - PRN imodium as directed DMII, insulin dependent - glargine increased to 30 units given hyperglycemia - POC blood glucose and SSI - hypoglycemia protocol in place CHRONIC CONDITIONS: - chronic ulcer of right foot pad s/p transmetatarsal amputation - CKD Stage III, currently baseline - obesity: BMI 30-34 on admit DVT prophylaxis: subQ heparin Code status: Full Dispo: Continued inpatient status given hypoxic respiratory failure secondary to COVID-19 pneumonia
[2021-08-24] MEDS: Saccharomyces Boulardii (Probiotic) 250 MG Cap PO SCH ×3 (09:06→20:15)
[2021-08-24] MEDS: Insulin Lispro 100 Units/ML 3 ML Vial SUBCUT SCH ×4 (09:06→22:13)
[2021-08-24] MEDS: Carvedilol 6.25 MG Tab PO SCH ×2 (09:07→20:15)
[2021-08-24] MEDS: Dexamethasone 6 MG TABLET PO SCH (09:07)
[2021-08-24] MEDS: Enoxaparin 30 MG/0.3 ML Syringe SUBCUT SCH (09:11)
[2021-08-24] MEDS: Benzonatate 100 MG Cap PO PRN ×2 (09:19→17:14)
[2021-08-24] MEDS: REMDESIVIR 100 MG in Sodium Chloride 0.9% 100 ML IV SCH (14:17)
[2021-08-24] MEDS: Pantoprazole 40 MG Tab.CR PO SCH (20:15)
[2021-08-24] MEDS: Insulin Glarg,Human.Rec.Analog 100 Unit/ML SUBCUT SCH (22:14)
--- NOTE | 2021-08-25 06:25 | PCM.PN ---
- General Info Date of Service: 08/25/21 Admission Dx/Problem (Free Text): covid 19 viral infection, covid related diarrhea Subjective Update: Patient states that her breathing is again improved from prior day, she is improved to 9 L nasal cannula. Denies any chest pain pressure, abdominal p ain, nausea or vomiting. Remainder review of systems is negative except those listed above. - Patient Data Vitals - Most Recent: Last Vital Signs Temp 97.0 F 08/24/21 20:00 Pulse 74 08/24/21 20:15 Resp 20 08/24/21 20:00 BP 158/62 H 08/24/21 20:15 Pulse Ox 95 08/24/21 20:00 Weight - Most Recent: 186 lb 4.8 oz I&O - Last 24 Hours: Intake & Output 08/24/21 08/24/21 08/25/21 14:59 22:59 06:59 Intake Total 440 Balance 440 Lab Results Last 24 Hours: Laboratory Results - last 24 hr 08/24/21 08/24/21 08/24/21 Range/Units 06:30 06:30 11:41 WBC 11.1 H (5.0-10.0) 10^3/uL RBC 4.24 (4.2-5.4) 10^6/uL Hgb 11.0 L (12.0-16.0) g/dL Hct 33.7 L (37.0-47.0) % MCV 79.5 L (80-100) fL MCH 25.9 L (27.0-34.0) pg MCHC 32.6 L (33.0-35.0) g/dL Plt Count 332 (150-450) 10^3/uL Neut % (Auto) 83.4 H (42.2-75.2) % Lymph % (Auto) 5.3 L (20.5-50.1) % [place] % (Auto) 11.2 H (2-8) % Eos % (Auto) 0.0 L (1.0-3.0) % Baso % (Auto) 0.1 (0.0-1.0) % Sodium 141 (136-145) mmol/L Potassium 4.0 (3.5-5.1) mmol/L Chloride 106 (98-107) mmol/L Carbon Dioxide 28 (21-32) mmol/L Anion Gap 11.0 (7-13) mEq/L BUN 26 H (7-18) mg/dL Creatinine 1.07 H (0.55-1.02) mg/dL Est Cr Clr Drug Dosing 55.61 mL/min Estimated GFR (MDRD) 53 BUN/Creatinine Ratio 24.3 (No establ ref range) Glucose 251 H (70-99) mg/dL POC Glucose 292 H (70-99) mg/dL Calcium 8.6 (8.5-10.1) mg/dL Total Bilirubin 0.4 (0.2-1.0) mg/dL AST 19 (15-37) U/L ALT 24 (14-59) U/L Alkaline Phosphatase 63 (46-116) U/L Total Protein 5.8 L (6.4-8.2) g/dL Albumin 2.0 L (3.4-5.0) g/dL Globulin 3.8 Albumin/Globulin Ratio 0.53 08/24/21 08/24/21 Range/Units 16:36 20:40 WBC (5.0-10.0) 10^3/uL RBC (4.2-5.4) 10^6/uL Hgb (12.0-16.0) g/dL Hct (37.0-47.0) % MCV (80-100) fL MCH (27.0-34.0) pg MCHC (33.0-35.0) g/dL Plt Count (150-450) 10^3/uL Neut % (Auto) (42.2-75.2) % Lymph % (Auto) (20.5-50.1) % [place] % (Auto) (2-8) % Eos % (Auto) (1.0-3.0) % Baso % (Auto) (0.0-1.0) % Sodium (136-145) mmol/L Potassium (3.5-5.1) mmol/L Chloride (98-107) mmol/L Carbon Dioxide (21-32) mmol/L Anion Gap (7-13) mEq/L BUN (7-18) mg/dL Creatinine (0.55-1.02) mg/dL Est Cr Clr Drug Dosing mL/min Estimated GFR (MDRD) BUN/Creatinine Ratio (No establ ref range) Glucose (70-99) mg/dL POC Glucose 256 H 312 H (70-99) mg/dL Calcium (8.5-10.1) mg/dL Total Bilirubin (0.2-1.0) mg/dL AST (15-37) U/L ALT (14-59) U/L Alkaline Phosphatase (46-116) U/L Total Protein (6.4-8.2) g/dL Albumin (3.4-5.0) g/dL Globulin Albumin/Globulin Ratio Med Orders - Current: Current Medications Acetaminophen (Acetaminophen 325 Mg Tab) 650 mg PO Q4H PRN PRN Reason: Pain (Mild 1-3)/fever Last Admin: 08/19/21 20:36 Dose: 650 mg Documented by: Benzonatate (Benzonatate 100 Mg Cap) 100 mg PO Q8H PRN PRN Reason: Other Last Admin: 08/24/21 17:14 Dose: 100 mg Documented by: Carvedilol (Carvedilol 6.25 Mg Tab) 6.25 mg PO BID [facility] Last Admin: 08/24/21 20:15 Dose: 6.25 mg Documented by: Dexamethasone (Dexamethasone 6 Mg Tablet) 6 mg PO DAILY [facility] Stop: 08/29/21 09:01 Last Admin: 08/24/21 09:07 Dose: 6 mg Documented by: Dextrose/Water (50% Dextrose In Water 50 Ml Syringe) 50 ml IVPUSH Q15M PRN PRN Reason: Hypoglycemia Enoxaparin Sodium (Enoxaparin 30 Mg/0.3 Ml Syringe) 30 mg SUBCUT DAILY [facility] Last Admin: 08/24/21 09:11 Dose: 30 mg Documented by: Glucagon (Glucagon,Human Recombinant 1 Mg Vial) 1 mg IM Q15M PRN PRN Reason: Hypoglycemia Insulin Glargine (Insulin Glarg,Human.Rec.Analog 100 Unit/Ml) 30 unit SUBCUT BEDTIME [facility] Last Admin: 08/24/21 22:14 Dose: 30 units Documented by: Insulin Human Lispro (Insulin Lispro 100 Units/Ml 3 Ml Vial) 0 unit SUBCUT WITHMEALSANDBED [facility]; Protocol Last Admin: 08/24/21 22:13 Dose: 8 units Documented by: Loperamide HCl (Loperamide 2 Mg Cap) 2 mg PO ASDIRECTED PRN PRN Reason: Diarrhea Last Admin: 08/20/21 03:57 Dose: 2 mg Documented by: Ondansetron HCl (Ondansetron 4 Mg Tab.Dis) 4 mg PO Q4H PRN PRN Reason: nausea, able to take PO Last Admin: 08/21/21 08:23 Dose: 4 mg Documented by: Pantoprazole Sodium (Pantoprazole 40 Mg Tab.Cr) 40 mg PO BEDTIME [facility] Last Admin: 08/24/21 20:15 Dose: 40 mg Documented by: Saccharomyces Boulardii (Saccharomyces Boulardii (Probiotic) 250 Mg Cap) 250 mg PO TID [facility] Last Admin: 08/24/21 20:15 Dose: 250 mg Documented by: Sodium Chloride (Sodium Chloride 0.9% 10 Ml Syringe) 10 ml FLUSH ASDIRECTED PRN PRN Reason: Keep Vein Open Last Admin: 08/19/21 08:25 Dose: 10 ml Documented by: Discontinued Medications Albuterol/Ipratropium (Albuterol/Ipratropium 3.0-0.5 Mg/3 Ml Neb Soln) 3 ml NEB Q6HRRT JONNY Last Admin: 08/17/21 00:22 Dose: Not Given Documented by: Bismuth Subsalicylate (Bismuth Subsalicylate 262 Mg Tab.Chew) 524 mg PO Q4H PRN PRN Reason: Diarrhea Last Admin: 08/18/21 21:47 Dose: 524 mg Documented by: Dextrose/Water (50% Dextrose In Water 50 Ml Syringe) 50 ml IVPUSH Q15M PRN PRN Reason: Hypoglycemia Glucagon (Glucagon,Human Recombinant 1 Mg Vial) 1 mg IM Q15M PRN PRN Reason: Hypoglycemia Sodium Chloride (Normal Saline) 1,000 mls @ 999 mls/hr IV .BOLUS ONE Stop: 08/15/21 17:21 Last Admin: 08/15/21 16:33 Dose: 999 mls/hr Documented by: Insulin Regular in 0.9 % NACL (Myxredlin In Ns 100 Unit/100 Ml) 100 unit in 100 mls @ 8.5 mls/hr IV TITRATE [facility]; Protocol Last Admin: 08/15/21 16:34 Dose: 0.1 units/kg/hr, 8.5 mls/hr Documented by: Sodium Chloride (Normal Saline) 1,000 mls @ 125 mls/hr IV ASDIRECTED [facility] Last Infusion: 08/18/21 17:09 Dose: Infused Documented by: Ceftriaxone Sodium 1 gm/ (Sodium Chloride) 50 mls @ 100 mls/hr IV Q24H [facility] Last Admin: 08/19/21 20:29 Dose: 10 mls/hr Documented by: Azithromycin 500 mg/ Sodium (Chloride) 250 mls @ 250 mls/hr IV Q24H [facility] Last Admin: 08/15/21 20:48 Dose: 250 mls/hr Documented by: Doxycycline Hyclate 100 mg/ (Sodium Chloride) 100 mls @ 100 mls/hr IV Q12HR [facility] Last Infusion: 08/20/21 10:03 Dose: Infused Documented by: Magnesium Sulfate 2 gm/ Premix 50 mls @ 25 mls/hr IV ONETIME ONE Stop: 08/18/21 12:43 Last Infusion: 08/18/21 14:14 Dose: Infused Documented by: Lactated Ringer's (Ringers, Lactated) 1,000 mls @ 100 mls/hr IV ASDIRECTED [facility] Last Infusion: 08/18/21 23:00 Dose: 100 mls/hr Documented by: Remdesivir 200 mg/ Sodium (Chloride) 250 mls @ 250 mls/hr IV ONETIME ONE Stop: 08/20/21 15:09 Last Infusion: 08/20/21 17:38 Dose: Infused Documented by: Remdesivir 100 mg/ Sodium (Chloride) 100 mls @ 100 mls/hr IV Q24H [facility] Stop: 08/24/21 14:59 Last Infusion: 08/24/21 15:34 Dose: Infused Documented by: Insulin Glargine (Insulin Glarg,Human.Rec.Analog 100 Unit/Ml) 30 unit SUBCUT BEDTIME [facility] Last Admin: 08/19/21 20:45 Dose: 30 units Documented by: Insulin Glargine (Insulin Glarg,Human.Rec.Analog 100 Unit/Ml) 29 unit SUBCUT BEDTIME [facility] Insulin Glargine (Insulin Glarg,Human.Rec.Analog 100 Unit/Ml) 25 unit SUBCUT BEDTIME [facility] Last Admin: 08/22/21 21:09 Dose: 25 units Documented by: Insulin Human Lispro (Insulin Lispro 100 Units/Ml 3 Ml Vial) 7 unit SUBCUT TIDMEALS [facility] Last Admin: 08/18/21 08:09 Dose: Not Given Documented by: Ondansetron HCl (Ondansetron 4 Mg/2 Ml Sdv) 4 mg IV ONETIME ONE Stop: 08/15/21 16:22 Last Admin: 08/15/21 16:31 Dose: 4 mg Documented by: Potassium Chloride (Potassium Chloride 10 Meq Tab.Er) 40 meq PO ONETIME ONE Stop: 08/18/21 07:48 Last Admin: 08/18/21 08:14 Dose: 40 meq Documented by: - Exam Quality Assessment: Supplemental Oxygen General: Alert, Oriented HEENT: Pupils Equal Lungs: Decreased Breath Sounds, Crackles Cardiovascular: Regular Rate, Regular Rhythm GI/Abdominal Exam: Normal Bowel Sounds, Soft, Non-Tender Back Exam: Normal Inspection Extremities: Other (left metatarsal amputation ) Peripheral Pulses: 2+: Radial (L), Radial (R) Skin: Warm Neurological: No New Focal Deficit Psy/Mental Status: Alert - Patient Data Lab Results Last 24 hrs: Laboratory Results - last 24 hr 08/24/21 08/24/21 08/24/21 Range/Units 06:30 06:30 11:41 WBC 11.1 H (5.0-10.0) 10^3/uL RBC 4.24 (4.2-5.4) 10^6/uL Hgb 11.0 L (12.0-16.0) g/dL Hct 33.7 L (37.0-47.0) % MCV 79.5 L (80-100) fL MCH 25.9 L (27.0-34.0) pg MCHC 32.6 L (33.0-35.0) g/dL Plt Count 332 (150-450) 10^3/uL Neut % (Auto) 83.4 H (42.2-75.2) % Lymph % (Auto) 5.3 L (20.5-50.1) % [place] % (Auto) 11.2 H (2-8) % Eos % (Auto) 0.0 L (1.0-3.0) % Baso % (Auto) 0.1 (0.0-1.0) % Sodium 141 (136-145) mmol/L Potassium 4.0 (3.5-5.1) mmol/L Chloride 106 (98-107) mmol/L Carbon Dioxide 28 (21-32) mmol/L Anion Gap 11.0 (7-13) mEq/L BUN 26 H (7-18) mg/dL Creatinine 1.07 H (0.55-1.02) mg/dL Est Cr Clr Drug Dosing 55.61 mL/min Estimated GFR (MDRD) 53 BUN/Creatinine Ratio 24.3 (No establ ref range) Glucose 251 H (70-99) mg/dL POC Glucose 292 H (70-99) mg/dL Calcium 8.6 (8.5-10.1) mg/dL Total Bilirubin 0.4 (0.2-1.0) mg/dL AST 19 (15-37) U/L ALT 24 (14-59) U/L Alkaline Phosphatase 63 (46-116) U/L Total Protein 5.8 L (6.4-8.2) g/dL Albumin 2.0 L (3.4-5.0) g/dL Globulin 3.8 Albumin/Globulin Ratio 0.53 08/24/21 08/24/21 Range/Units 16:36 20:40 WBC (5.0-10.0) 10^3/uL RBC (4.2-5.4) 10^6/uL Hgb (12.0-16.0) g/dL Hct (37.0-47.0) % MCV (80-100) fL MCH (27.0-34.0) pg MCHC (33.0-35.0) g/dL Plt Count (150-450) 10^3/uL Neut % (Auto) (42.2-75.2) % Lymph % (Auto) (20.5-50.1) % [place] % (Auto) (2-8) % Eos % (Auto) (1.0-3.0) % Baso % (Auto) (0.0-1.0) % Sodium (136-145) mmol/L Potassium (3.5-5.1) mmol/L Chloride (98-107) mmol/L Carbon Dioxide (21-32) mmol/L Anion Gap (7-13) mEq/L BUN (7-18) mg/dL Creatinine (0.55-1.02) mg/dL Est Cr Clr Drug Dosing mL/min Estimated GFR (MDRD) BUN/Creatinine Ratio (No establ ref range) Glucose (70-99) mg/dL POC Glucose 256 H 312 H (70-99) mg/dL Calcium (8.5-10.1) mg/dL Total Bilirubin (0.2-1.0) mg/dL AST (15-37) U/L ALT (14-59) U/L Alkaline Phosphatase (46-116) U/L Total Protein (6.4-8.2) g/dL Albumin (3.4-5.0) g/dL Globulin Albumin/Globulin Ratio Result Diagrams: 08/24/21 06:30 08/24/21 06:30 Sepsis Event Note - Evaluation Sepsis Screening Result: No Definite Risk - Focused Exam Vital Signs: Vital Signs Temp Pulse Pulse Resp BP BP Pulse Ox 08/24/21 20:15 74 158/62 H 08/24/21 20:00 97.0 F 70 20 138/70 95 08/24/21 19:00 Pulse Ox 08/24/21 20:15 08/24/21 20:00 08/24/21 19:00 95 - Problem List & Annotations (1) Acute respiratory failure with hypoxia SNOMED Code(s): 20185161, 297701564 Code(s): J96.01 - ACUTE RESPIRATORY FAILURE WITH HYPOXIA Status: Acute Current Visit: Yes (2) Gastroenteritis due to COVID-19 virus SNOMED Code(s): 371211279 Code(s): U07.1 - COVID-19; A08.39 - OTHER VIRAL ENTERITIS Status: Acute Current Visit: No (3) Hyperglycemia due to type 2 diabetes mellitus SNOMED Code(s): 716895483827157, 395534330461462 Code(s): E11.65 - TYPE 2 DIABETES MELLITUS WITH HYPERGLYCEMIA Status: Acute Current Visit: No Qualifiers: Diabetes mellitus long term acute care registered nurse insulin use: with longterm use Qualified Code(s): E11.65 - Type 2 diabetes mellitus with hyperglycemia; Z79.4 - long term acute care registered nurse (current) use of insulin (4) Pneumonia due to COVID-19 virus SNOMED Code(s): 708501453486840385 Code(s): U07.1 - COVID-19; J12.82 - PNEUMONIA DUE TO CORONAVIRUS DISEASE 2019 Status: Acute Current Visit: No (5) CKD stage 3 due to type 2 diabetes mellitus SNOMED Code(s): 480620285652 Code(s): E11.22 - TYPE 2 DIABETES MELLITUS W DIABETIC CHRONIC KIDNEY DISEASE; N18.30 - CHRONIC KIDNEY DISEASE, STAGE 3 UNSPECIFIED Status: Acute Current Visit: Yes - Problem List Review Problem List Initiated/Reviewed/Updated: Yes - My Orders Last 24 Hours: My Active Orders 08/24/21 10:53 Dietary Supplements [RC] TIDMEALS - Plan Plan:: ACUTE CONDITIONS: # Covid 19 viral pneumonia acute respiratory failure with hypoxia 2/2 above - currently requiring 9L supplemental oxygen to maintain saturations >90% - improved from prior day - wean oxygen as tolerated - full code - continue dexamethasone and remdesivir (started 08/20/21) - aggressive IS 10x in a row every hour while awake - laboratory testing per protocol # Covid 19 related diarrhea: - PRN imodium as directed # DMII, insulin dependent - glargine increased to 35 units given hyperglycemia - POC blood glucose and SSI - hypoglycemia protocol in place CHRONIC CONDITIONS: - chronic ulcer of right foot pad s/p transmetatarsal amputation - CKD Stage III, currently baseline - obesity: BMI 30-34 on admit DVT prophylaxis: subQ heparin Code status: Full Dispo: Continued inpatient status given hypoxic respiratory failure secondary to COVID-19 pneumonia - if continued improvement could consider discharge with home oxygen
[2021-08-25] MEDS ORDERED: Benzocaine/Cetylpyridinium/Menthol Lozenge MUCMEM PRN (10:22)
[2021-08-25] MEDS ORDERED: Albuterol 6.7 GM Inhaler INH PRN (10:23)
[2021-08-25] MEDS: Insulin Lispro 100 Units/ML 3 ML Vial SUBCUT SCH ×4 (10:31→20:55)
[2021-08-25] MEDS: Dexamethasone 6 MG TABLET PO SCH (10:33)
[2021-08-25] MEDS: Carvedilol 6.25 MG Tab PO SCH ×2 (10:33→20:48)
[2021-08-25] MEDS: Saccharomyces Boulardii (Probiotic) 250 MG Cap PO SCH ×3 (10:36→20:47)
[2021-08-25] MEDS: Enoxaparin 30 MG/0.3 ML Syringe SUBCUT SCH (10:36)
[2021-08-25] MEDS: Pantoprazole 40 MG Tab.CR PO SCH (20:47)
[2021-08-25] MEDS: Insulin Glarg,Human.Rec.Analog 100 Unit/ML SUBCUT SCH (20:52)
--- NOTE | 2021-08-26 07:06 | PCM.PN ---
- General Info Date of Service: 08/26/21 Admission Dx/Problem (Free Text): covid 19 viral infection, covid related diarrhea Subjective Update: Patient states that her breathing is again improved from prior day, she is improved to 8-9 L nasal cannula. Denies any chest pain pressure, fevers, c hills, abdominal pain, nausea or vomiting. Remainder review of systems is negative except those listed above. - Patient Data Vitals - Most Recent: Last Vital Signs Temp 97.8 F 08/26/21 04:00 Pulse 69 08/26/21 04:00 Resp 20 08/26/21 04:00 BP 152/77 H 08/26/21 04:00 Pulse Ox 97 08/26/21 04:00 Weight - Most Recent: 186 lb 4.8 oz I&O - Last 24 Hours: Intake & Output 08/25/21 08/26/21 08/26/21 22:59 06:59 14:59 Intake Total 420 Output Total 25 Balance 395 Lab Results Last 24 Hours: Laboratory Results - last 24 hr 08/25/21 08/25/21 08/25/21 Range/Units 08:20 12:38 18:10 POC Glucose 222 H 199 H 238 H (70-99) mg/dL 08/25/21 Range/Units 20:45 POC Glucose 244 H (70-99) mg/dL Med Orders - Current: Current Medications Acetaminophen (Acetaminophen 325 Mg Tab) 650 mg PO Q4H PRN PRN Reason: Pain (Mild 1-3)/fever Last Admin: 08/19/21 20:36 Dose: 650 mg Documented by: Albuterol (Albuterol 6.7 Gm Inhaler) 0 gm INH Q4H PRN PRN Reason: Shortness of Breath Last Admin: 08/25/21 12:45 Dose: 2 puff Documented by: Benzocaine/Menthol (Benzocaine/Cetylpyridinium/Menthol Lozenge) 1 lozenge MUCMEM Q2HR PRN PRN Reason: Cough Last Admin: 08/25/21 14:55 Dose: 1 lozenge Documented by: Benzonatate (Benzonatate 100 Mg Cap) 100 mg PO Q8H PRN PRN Reason: Other Last Admin: 08/24/21 17:14 Dose: 100 mg Documented by: Carvedilol (Carvedilol 6.25 Mg Tab) 6.25 mg PO BID [facility] Last Admin: 08/25/21 20:48 Dose: 6.25 mg Documented by: Dexamethasone (Dexamethasone 6 Mg Tablet) 6 mg PO DAILY [facility] Stop: 08/29/21 09:01 Last Admin: 08/25/21 10:33 Dose: 6 mg Documented by: Dextrose/Water (50% Dextrose In Water 50 Ml Syringe) 50 ml IVPUSH Q15M PRN PRN Reason: Hypoglycemia Enoxaparin Sodium (Enoxaparin 30 Mg/0.3 Ml Syringe) 30 mg SUBCUT DAILY [facility] Last Admin: 08/25/21 10:36 Dose: 30 mg Documented by: Glucagon (Glucagon,Human Recombinant 1 Mg Vial) 1 mg IM Q15M PRN PRN Reason: Hypoglycemia Insulin Glargine (Insulin Glarg,Human.Rec.Analog 100 Unit/Ml) 35 unit SUBCUT BEDTIME [facility] Last Admin: 08/25/21 20:52 Dose: 35 unit Documented by: Insulin Human Lispro (Insulin Lispro 100 Units/Ml 3 Ml Vial) 0 unit SUBCUT WITHMEALSANDBED [facility]; Protocol Last Admin: 08/25/21 20:55 Dose: 4 units Documented by: Loperamide HCl (Loperamide 2 Mg Cap) 2 mg PO ASDIRECTED PRN PRN Reason: Diarrhea Last Admin: 08/20/21 03:57 Dose: 2 mg Documented by: Ondansetron HCl (Ondansetron 4 Mg Tab.Dis) 4 mg PO Q4H PRN PRN Reason: nausea, able to take PO Last Admin: 08/21/21 08:23 Dose: 4 mg Documented by: Pantoprazole Sodium (Pantoprazole 40 Mg Tab.Cr) 40 mg PO BEDTIME [facility] Last Admin: 08/25/21 20:47 Dose: 40 mg Documented by: Saccharomyces Boulardii (Saccharomyces Boulardii (Probiotic) 250 Mg Cap) 250 mg PO TID [facility] Last Admin: 08/25/21 20:47 Dose: 250 mg Documented by: Sodium Chloride (Sodium Chloride 0.9% 10 Ml Syringe) 10 ml FLUSH ASDIRECTED PRN PRN Reason: Keep Vein Open Last Admin: 08/19/21 08:25 Dose: 10 ml Documented by: Discontinued Medications Albuterol/Ipratropium (Albuterol/Ipratropium 3.0-0.5 Mg/3 Ml Neb Soln) 3 ml NEB Q6HRRT [facility] Last Admin: 08/17/21 00:22 Dose: Not Given Documented by: Bismuth Subsalicylate (Bismuth Subsalicylate 262 Mg Tab.Chew) 524 mg PO Q4H PRN PRN Reason: Diarrhea Last Admin: 08/18/21 21:47 Dose: 524 mg Documented by: Dextrose/Water (50% Dextrose In Water 50 Ml Syringe) 50 ml IVPUSH Q15M PRN PRN Reason: Hypoglycemia Glucagon (Glucagon,Human Recombinant 1 Mg Vial) 1 mg IM Q15M PRN PRN Reason: Hypoglycemia Sodium Chloride (Normal Saline) 1,000 mls @ 999 mls/hr IV .BOLUS ONE Stop: 08/15/21 17:21 Last Admin: 08/15/21 16:33 Dose: 999 mls/hr Documented by: Insulin Regular in 0.9 % NACL (Myxredlin In Ns 100 Unit/100 Ml) 100 unit in 100 mls @ 8.5 mls/hr IV TITRATE [facility]; Protocol Last Admin: 08/15/21 16:34 Dose: 0.1 units/kg/hr, 8.5 mls/hr Documented by: Sodium Chloride (Normal Saline) 1,000 mls @ 125 mls/hr IV ASDIRECTED [facility] Last Infusion: 08/18/21 17:09 Dose: Infused Documented by: Ceftriaxone Sodium 1 gm/ (Sodium Chloride) 50 mls @ 100 mls/hr IV Q24H [facility] Last Admin: 08/19/21 20:29 Dose: 10 mls/hr Documented by: Azithromycin 500 mg/ Sodium (Chloride) 250 mls @ 250 mls/hr IV Q24H [facility] Last Admin: 08/15/21 20:48 Dose: 250 mls/hr Documented by: Doxycycline Hyclate 100 mg/ (Sodium Chloride) 100 mls @ 100 mls/hr IV Q12HR [facility] Last Infusion: 08/20/21 10:03 Dose: Infused Documented by: Magnesium Sulfate 2 gm/ Premix 50 mls @ 25 mls/hr IV ONETIME ONE Stop: 08/18/21 12:43 Last Infusion: 08/18/21 14:14 Dose: Infused Documented by: Lactated Ringer's (Ringers, Lactated) 1,000 mls @ 100 mls/hr IV ASDIRECTED [facility] Last Infusion: 08/18/21 23:00 Dose: 100 mls/hr Documented by: Remdesivir 200 mg/ Sodium (Chloride) 250 mls @ 250 mls/hr IV ONETIME ONE Stop: 08/20/21 15:09 Last Infusion: 08/20/21 17:38 Dose: Infused Documented by: Remdesivir 100 mg/ Sodium (Chloride) 100 mls @ 100 mls/hr IV Q24H [facility] Stop: 08/24/21 14:59 Last Infusion: 08/24/21 15:34 Dose: Infused Documented by: Insulin Glargine (Insulin Glarg,Human.Rec.Analog 100 Unit/Ml) 30 unit SUBCUT BEDTIME [facility] Last Admin: 08/19/21 20:45 Dose: 30 units Documented by: Insulin Glargine (Insulin Glarg,Human.Rec.Analog 100 Unit/Ml) 29 unit SUBCUT BEDTIME [facility] Insulin Glargine (Insulin Glarg,Human.Rec.Analog 100 Unit/Ml) 25 unit SUBCUT BEDTIME [facility] Last Admin: 08/22/21 21:09 Dose: 25 units Documented by: Insulin Glargine (Insulin Glarg,Human.Rec.Analog 100 Unit/Ml) 30 unit SUBCUT BEDTIME [facility] Last Admin: 08/24/21 22:14 Dose: 30 units Documented by: Insulin Human Lispro (Insulin Lispro 100 Units/Ml 3 Ml Vial) 7 unit SUBCUT TIDMEALS [facility] Last Admin: 08/18/21 08:09 Dose: Not Given Documented by: Ondansetron HCl (Ondansetron 4 Mg/2 Ml Sdv) 4 mg IV ONETIME ONE Stop: 08/15/21 16:22 Last Admin: 08/15/21 16:31 Dose: 4 mg Documented by: Potassium Chloride (Potassium Chloride 10 Meq Tab.Er) 40 meq PO ONETIME ONE Stop: 08/18/21 07:48 Last Admin: 08/18/21 08:14 Dose: 40 meq Documented by: - Exam Quality Assessment: Supplemental Oxygen General: Alert, Oriented HEENT: Pupils Equal Neck: Supple Lungs: Normal Respiratory Effort, Decreased Breath Sounds Cardiovascular: Regular Rate, Regular Rhythm GI/Abdominal Exam: Normal Bowel Sounds, Soft, Non-Tender Back Exam: Normal Inspection Extremities: Normal Inspection, No Pedal Edema, Other (right transmetatarsal amputation with known open sore - no signs of infection) Peripheral Pulses: 2+: Radial (L), Radial (R) Skin: Warm, Dry Neurological: No New Focal Deficit Psy/Mental Status: Alert - Patient Data Lab Results Last 24 hrs: Laboratory Results - last 24 hr 08/25/21 08/25/21 08/25/21 Range/Units 08:20 12:38 18:10 POC Glucose 222 H 199 H 238 H (70-99) mg/dL 08/25/21 Range/Units 20:45 POC Glucose 244 H (70-99) mg/dL Result Diagrams: 08/24/21 06:30 08/24/21 06:30 Sepsis Event Note - Evaluation Sepsis Screening Result: No Definite Risk - Focused Exam Vital Signs: Vital Signs Temp Pulse Pulse Resp BP BP Pulse Ox 08/26/21 04:00 97.8 F 69 20 152/77 H 97 08/26/21 00:00 98 F 68 20 136/71 93 L 08/25/21 20:48 80 136/84 08/25/21 20:00 98.4 F 80 20 93 L - Problem List & Annotations (1) Acute respiratory failure with hypoxia SNOMED Code(s): 83315372, 808665108 Code(s): J96.01 - ACUTE RESPIRATORY FAILURE WITH HYPOXIA Status: Acute Current Visit: Yes (2) Gastroenteritis due to COVID-19 virus SNOMED Code(s): 819532474 Code(s): U07.1 - COVID-19; A08.39 - OTHER VIRAL ENTERITIS Status: Acute Current Visit: No (3) Hyperglycemia due to type 2 diabetes mellitus SNOMED Code(s): 293777340508336, 174987667942447 Code(s): E11.65 - TYPE 2 DIABETES MELLITUS WITH HYPERGLYCEMIA Status: Acute Current Visit: No Qualifiers: 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 Qualified Code(s): E11.65 - Type 2 diabetes mellitus with hyperglycemia; Z79.4 - intermediate (current) use of insulin (4) Pneumonia due to COVID-19 virus SNOMED Code(s): 117335666646364833 Code(s): U07.1 - COVID-19; J12.82 - PNEUMONIA DUE TO CORONAVIRUS DISEASE 2019 Status: Acute Current Visit: No (5) CKD stage 3 due to type 2 diabetes mellitus SNOMED Code(s): 684328426789 Code(s): E11.22 - TYPE 2 DIABETES MELLITUS W DIABETIC CHRONIC KIDNEY DISEASE; N18.30 - CHRONIC KIDNEY DISEASE, STAGE 3 UNSPECIFIED Status: Acute Current Visit: Yes (6) Wound, open, foot SNOMED Code(s): 153232922 Code(s): S91.309A - UNSPECIFIED OPEN WOUND, UNSPECIFIED FOOT, INITIAL ENCOUNTER Status: Acute Current Visit: Yes - Problem List Review Problem List Initiated/Reviewed/Updated: Yes - My Orders Last 24 Hours: My Active Orders 08/25/21 10:22 Benzocaine/Cetylpyrd/Menthol [Cepacol Sore Throat] 1 lozenge MUCMEM Q2HR PRN 08/25/21 10:23 RT Post Treatment Assessment [RC] Click to Edit RT Pre-Treatment Assessment [RC] Click to Edit Albuterol [Proventil HFA] 0 gm INH Q4H PRN 08/25/21 21:00 Insulin Glarg,Human.Rec.Analog [LantUS] 35 unit SUBCUT BEDTIME - Assessment Assessment:: a - Plan Plan:: ACUTE CONDITIONS: # Covid 19 viral pneumonia acute respiratory failure with hypoxia 2/2 above - currently requiring 8-9L supplemental oxygen to maintain saturations >90% - stable from prior day - wean oxygen as tolerated - full code - continue dexamethasone and remdesivir (started 08/20/21) - remdesivir completed - dexamethasone until 08/30/21 - aggressive IS 10x in a row every hour while awake - laboratory monitoring per protocol - blood cultures negative # Covid 19 related diarrhea: - PRN imodium as directed # DMII, insulin dependent -Blood sugars overall improved, continue with 35 units of glargine and medium dose sliding scale insulin CHRONIC CONDITIONS: - chronic ulcer of right foot pad s/p transmetatarsal amputation - continue dressing changes - no signs of infection but concerns for deeper tunneling of wound - offloading as able - was supposed to have MRI 08/26/21 but cancelled due to hospitalization - will need to ensure follow up with surgery/podiatry - patient had been following with physician - CKD Stage III, currently baseline - obesity: BMI 30-34 on admit DVT prophylaxis: subQ heparin Code status: Full Dispo: Continued inpatient status given hypoxic respiratory failure secondary to COVID-19 pneumonia - if continued improvement could consider discharge with home oxygen
[2021-08-26] MEDS: Insulin Lispro 100 Units/ML 3 ML Vial SUBCUT SCH ×4 (08:39→21:49)
[2021-08-26] MEDS: Dexamethasone 6 MG TABLET PO SCH (08:40)
[2021-08-26] MEDS: Carvedilol 6.25 MG Tab PO SCH ×2 (08:40→21:54)
[2021-08-26] MEDS: Enoxaparin 30 MG/0.3 ML Syringe SUBCUT SCH (08:40)
[2021-08-26] MEDS: Saccharomyces Boulardii (Probiotic) 250 MG Cap PO SCH ×3 (08:40→21:55)
[2021-08-26] MEDS: Insulin Glarg,Human.Rec.Analog 100 Unit/ML SUBCUT SCH (21:45)
[2021-08-26] MEDS: Pantoprazole 40 MG Tab.CR PO SCH (21:55)
--- NOTE | 2021-08-27 07:23 | PCM.PN ---
- General Info Date of Service: 08/27/21 Admission Dx/Problem (Free Text): covid 19 viral infection, covid related diarrhea Subjective Update: Patient states that her breathing is again improved from prior day, overnight patient again had improvement in her oxygen requirement and is now requiring 7 L nasal cannula. Denies any chest pain pressure, fevers, chills, abdominal pain, nausea or vomiting. Remainder of review of systems is negative except those listed above. - Patient Data Vitals - Most Recent: Last Vital Signs Temp 98 F 08/27/21 05:00 Pulse 60 08/27/21 05:00 Resp 20 08/27/21 05:00 BP 141/65 H 08/27/21 05:00 Pulse Ox 96 08/27/21 05:00 Weight - Most Recent: 186 lb 4.8 oz I&O - Last 24 Hours: Intake & Output 08/26/21 08/27/21 08/27/21 22:59 06:59 14:59 Intake Total 600 Balance 600 Lab Results Last 24 Hours: Laboratory Results - last 24 hr 08/26/21 08/26/21 08/26/21 Range/Units 07:39 11:20 17:01 POC Glucose 162 H 215 H 266 H (70-99) mg/dL 08/26/21 Range/Units 21:03 POC Glucose 345 H (70-99) mg/dL Med Orders - Current: Current Medications Acetaminophen (Acetaminophen 325 Mg Tab) 650 mg PO Q4H PRN PRN Reason: Pain (Mild 1-3)/fever Last Admin: 08/19/21 20:36 Dose: 650 mg Documented by: Albuterol (Albuterol 6.7 Gm Inhaler) 0 gm INH Q4H PRN PRN Reason: Shortness of Breath Last Admin: 08/25/21 12:45 Dose: 2 puff Documented by: Benzocaine/Menthol (Benzocaine/Cetylpyridinium/Menthol Lozenge) 1 lozenge MUCMEM Q2HR PRN PRN Reason: Cough Last Admin: 08/25/21 14:55 Dose: 1 lozenge Documented by: Benzonatate (Benzonatate 100 Mg Cap) 100 mg PO Q8H PRN PRN Reason: Other Last Admin: 08/24/21 17:14 Dose: 100 mg Documented by: Carvedilol (Carvedilol 6.25 Mg Tab) 6.25 mg PO BID [facility] Last Admin: 08/26/21 21:54 Dose: 6.25 mg Documented by: Dexamethasone (Dexamethasone 6 Mg Tablet) 6 mg PO DAILY [facility] Stop: 08/29/21 09:01 Last Admin: 08/26/21 08:40 Dose: 6 mg Documented by: Dextrose/Water (50% Dextrose In Water 50 Ml Syringe) 50 ml IVPUSH Q15M PRN PRN Reason: Hypoglycemia Enoxaparin Sodium (Enoxaparin 30 Mg/0.3 Ml Syringe) 30 mg SUBCUT DAILY [facility] Last Admin: 08/26/21 08:40 Dose: 30 mg Documented by: Glucagon (Glucagon,Human Recombinant 1 Mg Vial) 1 mg IM Q15M PRN PRN Reason: Hypoglycemia Insulin Glargine (Insulin Glarg,Human.Rec.Analog 100 Unit/Ml) 35 unit SUBCUT BEDTIME [facility] Last Admin: 08/26/21 21:45 Dose: 35 unit Documented by: Insulin Human Lispro (Insulin Lispro 100 Units/Ml 3 Ml Vial) 0 unit SUBCUT WITHMEALSANDBED [facility]; Protocol Last Admin: 08/26/21 21:49 Dose: 8 units Documented by: Loperamide HCl (Loperamide 2 Mg Cap) 2 mg PO ASDIRECTED PRN PRN Reason: Diarrhea Last Admin: 08/20/21 03:57 Dose: 2 mg Documented by: Ondansetron HCl (Ondansetron 4 Mg Tab.Dis) 4 mg PO Q4H PRN PRN Reason: nausea, able to take PO Last Admin: 08/21/21 08:23 Dose: 4 mg Documented by: Pantoprazole Sodium (Pantoprazole 40 Mg Tab.Cr) 40 mg PO BEDTIME [facility] Last Admin: 08/26/21 21:55 Dose: 40 mg Documented by: Saccharomyces Boulardii (Saccharomyces Boulardii (Probiotic) 250 Mg Cap) 250 mg PO TID [facility] Last Admin: 08/26/21 21:55 Dose: 250 mg Documented by: Sodium Chloride (Sodium Chloride 0.9% 10 Ml Syringe) 10 ml FLUSH ASDIRECTED PRN PRN Reason: Keep Vein Open Last Admin: 08/19/21 08:25 Dose: 10 ml Documented by: Discontinued Medications Albuterol/Ipratropium (Albuterol/Ipratropium 3.0-0.5 Mg/3 Ml Neb Soln) 3 ml NEB Q6HRRT [facility] Last Admin: 08/17/21 00:22 Dose: Not Given Documented by: Bismuth Subsalicylate (Bismuth Subsalicylate 262 Mg Tab.Chew) 524 mg PO Q4H PRN PRN Reason: Diarrhea Last Admin: 08/18/21 21:47 Dose: 524 mg Documented by: Dextrose/Water (50% Dextrose In Water 50 Ml Syringe) 50 ml IVPUSH Q15M PRN PRN Reason: Hypoglycemia Glucagon (Glucagon,Human Recombinant 1 Mg Vial) 1 mg IM Q15M PRN PRN Reason: Hypoglycemia Sodium Chloride (Normal Saline) 1,000 mls @ 999 mls/hr IV .BOLUS ONE Stop: 08/15/21 17:21 Last Admin: 08/15/21 16:33 Dose: 999 mls/hr Documented by: Insulin Regular in 0.9 % NACL (Myxredlin In Ns 100 Unit/100 Ml) 100 unit in 100 mls @ 8.5 mls/hr IV TITRATE [facility]; Protocol Last Admin: 08/15/21 16:34 Dose: 0.1 units/kg/hr, 8.5 mls/hr Documented by: Sodium Chloride (Normal Saline) 1,000 mls @ 125 mls/hr IV ASDIRECTED [facility] Last Infusion: 08/18/21 17:09 Dose: Infused Documented by: Ceftriaxone Sodium 1 gm/ (Sodium Chloride) 50 mls @ 100 mls/hr IV Q24H [facility] Last Admin: 08/19/21 20:29 Dose: 10 mls/hr Documented by: Azithromycin 500 mg/ Sodium (Chloride) 250 mls @ 250 mls/hr IV Q24H [facility] Last Admin: 08/15/21 20:48 Dose: 250 mls/hr Documented by: Doxycycline Hyclate 100 mg/ (Sodium Chloride) 100 mls @ 100 mls/hr IV Q12HR [facility] Last Infusion: 08/20/21 10:03 Dose: Infused Documented by: Magnesium Sulfate 2 gm/ Premix 50 mls @ 25 mls/hr IV ONETIME ONE Stop: 08/18/21 12:43 Last Infusion: 08/18/21 14:14 Dose: Infused Documented by: Lactated Ringer's (Ringers, Lactated) 1,000 mls @ 100 mls/hr IV ASDIRECTED [facility] Last Infusion: 08/18/21 23:00 Dose: 100 mls/hr Documented by: Remdesivir 200 mg/ Sodium (Chloride) 250 mls @ 250 mls/hr IV ONETIME ONE Stop: 08/20/21 15:09 Last Infusion: 08/20/21 17:38 Dose: Infused Documented by: Remdesivir 100 mg/ Sodium (Chloride) 100 mls @ 100 mls/hr IV Q24H [facility] Stop: 08/24/21 14:59 Last Infusion: 08/24/21 15:34 Dose: Infused Documented by: Insulin Glargine (Insulin Glarg,Human.Rec.Analog 100 Unit/Ml) 30 unit SUBCUT BEDTIME [facility] Last Admin: 08/19/21 20:45 Dose: 30 units Documented by: Insulin Glargine (Insulin Glarg,Human.Rec.Analog 100 Unit/Ml) 29 unit SUBCUT BEDTIME [facility] Insulin Glargine (Insulin Glarg,Human.Rec.Analog 100 Unit/Ml) 25 unit SUBCUT BEDTIME [facility] Last Admin: 08/22/21 21:09 Dose: 25 units Documented by: Insulin Glargine (Insulin Glarg,Human.Rec.Analog 100 Unit/Ml) 30 unit SUBCUT BEDTIME [facility] Last Admin: 08/24/21 22:14 Dose: 30 units Documented by: Insulin Human Lispro (Insulin Lispro 100 Units/Ml 3 Ml Vial) 7 unit SUBCUT TIDMEALS [facility] Last Admin: 08/18/21 08:09 Dose: Not Given Documented by: Ondansetron HCl (Ondansetron 4 Mg/2 Ml Sdv) 4 mg IV ONETIME ONE Stop: 08/15/21 16:22 Last Admin: 08/15/21 16:31 Dose: 4 mg Documented by: Potassium Chloride (Potassium Chloride 10 Meq Tab.Er) 40 meq PO ONETIME ONE Stop: 08/18/21 07:48 Last Admin: 08/18/21 08:14 Dose: 40 meq Documented by: - Exam Quality Assessment: Supplemental Oxygen General: Alert, Oriented HEENT: Pupils Equal, Pupils Reactive Neck: Supple Lungs: Decreased Breath Sounds (improved in upper lung briggs), Crackles Cardiovascular: Regular Rate, Regular Rhythm GI/Abdominal Exam: Normal Bowel Sounds, Soft, Non-Tender Back Exam: Normal Inspection Extremities: Normal Inspection, Normal Range of Motion Peripheral Pulses: 2+: Radial (L), Radial (R) Skin: Warm, Dry Neurological: No New Focal Deficit Psy/Mental Status: Alert - Patient Data Lab Results Last 24 hrs: Laboratory Results - last 24 hr 08/26/21 08/26/21 08/26/21 Range/Units 07:39 11:20 17:01 POC Glucose 162 H 215 H 266 H (70-99) mg/dL 08/26/21 Range/Units 21:03 POC Glucose 345 H (70-99) mg/dL Result Diagrams: 08/24/21 06:30 08/24/21 06:30 Sepsis Event Note - Evaluation Sepsis Screening Result: No Definite Risk - Focused Exam Vital Signs: Vital Signs Temp Pulse Pulse Resp BP BP Pulse Ox 08/27/21 05:00 98 F 60 20 141/65 H 96 08/26/21 21:54 73 141/81 H 08/26/21 21:52 98 F 78 20 141/81 H 93 L 08/26/21 20:00 98.2 F 72 20 136/76 94 L 08/26/21 19:30 Pulse Ox 08/27/21 05:00 08/26/21 21:54 08/26/21 21:52 08/26/21 20:00 08/26/21 19:30 94 L - Problem List & Annotations (1) Acute respiratory failure with hypoxia SNOMED Code(s): 78104472, 518559190 Code(s): J96.01 - ACUTE RESPIRATORY FAILURE WITH HYPOXIA Status: Acute Current Visit: Yes (2) Gastroenteritis due to COVID-19 virus SNOMED Code(s): 134730555 Code(s): U07.1 - COVID-19; A08.39 - OTHER VIRAL ENTERITIS Status: Acute Current Visit: No (3) Hyperglycemia due to type 2 diabetes mellitus SNOMED Code(s): 228506914537199, 918712526070664 Code(s): E11.65 - TYPE 2 DIABETES MELLITUS WITH HYPERGLYCEMIA Status: Acute Current Visit: No Qualifiers: 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 Qualified Code(s): E11.65 - Type 2 diabetes mellitus with hyperglycemia; Z79.4 - FPC (current) use of insulin (4) Pneumonia due to COVID-19 virus SNOMED Code(s): 177427027865143061 Code(s): U07.1 - COVID-19; J12.82 - PNEUMONIA DUE TO CORONAVIRUS DISEASE 2018 Status: Acute Current Visit: No (5) CKD stage 3 due to type 2 diabetes mellitus SNOMED Code(s): 102517617729 Code(s): E11.22 - TYPE 2 DIABETES MELLITUS W DIABETIC CHRONIC KIDNEY DISEASE; N18.30 - CHRONIC KIDNEY DISEASE, STAGE 3 UNSPECIFIED Status: Acute Current Visit: Yes (6) Wound, open, foot SNOMED Code(s): 912056402 Code(s): S91.309A - UNSPECIFIED OPEN WOUND, UNSPECIFIED FOOT, INITIAL ENCOUNTER Status: Acute Current Visit: Yes - Problem List Review Problem List Initiated/Reviewed/Updated: Yes - My Orders Last 24 Hours: My Active Orders 08/26/21 14:54 Wound Care [RC] - Assessment Assessment:: a - Plan Plan:: ACUTE CONDITIONS: # Covid 19 viral pneumonia acute respiratory failure with hypoxia 2/2 above - currently requiring 7L supplemental oxygen to maintain saturations >90% - improved from prior day - wean oxygen as tolerated - maintains full code status - continue dexamethasone and remdesivir (started 08/20/21) - remdesivir completed - dexamethasone until 08/30/21 - aggressive IS while awake - laboratory monitoring per protocol - blood cultures negative # Covid 19 related diarrhea: - PRN imodium as directed # DMII, insulin dependent -Blood sugars overall improved, elevated 2/2 dexamethasone -continue with 35 units of glargine and medium dose sliding scale insulin CHRONIC CONDITIONS: - 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
[2021-08-27] MEDS: Enoxaparin 30 MG/0.3 ML Syringe SUBCUT SCH (08:19)
[2021-08-27] MEDS: Insulin Lispro 100 Units/ML 3 ML Vial SUBCUT SCH ×4 (08:20→21:07)
[2021-08-27] MEDS: Dexamethasone 6 MG TABLET PO SCH (08:21)
[2021-08-27] MEDS: Saccharomyces Boulardii (Probiotic) 250 MG Cap PO SCH ×3 (08:21→21:13)
[2021-08-27] MEDS: Carvedilol 6.25 MG Tab PO SCH ×2 (08:21→21:13)
[2021-08-27] MEDS: Sodium Chloride 0.9% 10 ML Syringe FLUSH PRN ×2 (10:04→21:16)
[2021-08-27] MEDS: Insulin Glarg,Human.Rec.Analog 100 Unit/ML SUBCUT SCH (21:12)
[2021-08-27] MEDS: Pantoprazole 40 MG Tab.CR PO SCH (21:14)
[2021-08-28 06:55] LABS: ANION GAP 10.4 mEq/L (7-13)
--- NOTE | 2021-08-28 07:01 | PCM.PN ---
- General Info Date of Service: 08/28/21 Admission Dx/Problem (Free Text): covid 19 viral infection, covid related diarrhea Subjective Update: Patient states that her breathing is again improved from prior day, overnight patient again had improvement in her oxygen requirement and is now requiring 6 L nasal cannula. Denies any chest pain pressure, fevers, chills, abdominal pain, nausea or vomiting. Remainder of review of systems is negative except those listed above. - Patient Data Vitals - Most Recent: Last Vital Signs Temp 98 F 08/28/21 05:00 Pulse 69 08/28/21 05:00 Resp 20 08/28/21 05:00 BP 141/80 H 08/28/21 05:00 Pulse Ox 97 08/28/21 05:00 Weight - Most Recent: 186 lb 4.8 oz I&O - Last 24 Hours: Intake & Output 08/27/21 08/27/21 08/28/21 14:59 22:59 06:59 Intake Total 375 400 Balance 375 400 Lab Results Last 24 Hours: Laboratory Results - last 24 hr 08/27/21 08/27/21 08/27/21 Range/Units 07:32 11:35 16:34 POC Glucose 174 H 221 H 341 H (70-99) mg/dL 08/27/21 Range/Units 20:58 POC Glucose 382 H (70-99) mg/dL Med Orders - Current: Current Medications Acetaminophen (Acetaminophen 325 Mg Tab) 650 mg PO Q4H PRN PRN Reason: Pain (Mild 1-3)/fever Last Admin: 08/19/21 20:36 Dose: 650 mg Documented by: Albuterol (Albuterol 6.7 Gm Inhaler) 0 gm INH Q4H PRN PRN Reason: Shortness of Breath Last Admin: 08/25/21 12:45 Dose: 2 puff Documented by: Benzocaine/Menthol (Benzocaine/Cetylpyridinium/Menthol Lozenge) 1 lozenge MUCMEM Q2HR PRN PRN Reason: Cough Last Admin: 08/25/21 14:55 Dose: 1 lozenge Documented by: Benzonatate (Benzonatate 100 Mg Cap) 100 mg PO Q8H PRN PRN Reason: Other Last Admin: 08/24/21 17:14 Dose: 100 mg Documented by: Carvedilol (Carvedilol 6.25 Mg Tab) 6.25 mg PO BID [facility] Last Admin: 08/27/21 21:13 Dose: 6.25 mg Documented by: Dexamethasone (Dexamethasone 6 Mg Tablet) 6 mg PO DAILY [facility] Stop: 08/29/21 09:01 Last Admin: 08/27/21 08:21 Dose: 6 mg Documented by: Dextrose/Water (50% Dextrose In Water 50 Ml Syringe) 50 ml IVPUSH Q15M PRN PRN Reason: Hypoglycemia Enoxaparin Sodium (Enoxaparin 30 Mg/0.3 Ml Syringe) 30 mg SUBCUT DAILY [facility] Last Admin: 08/27/21 08:19 Dose: 30 mg Documented by: Glucagon (Glucagon,Human Recombinant 1 Mg Vial) 1 mg IM Q15M PRN PRN Reason: Hypoglycemia Insulin Glargine (Insulin Glarg,Human.Rec.Analog 100 Unit/Ml) 35 unit SUBCUT BEDTIME [facility] Last Admin: 08/27/21 21:12 Dose: 35 unit Documented by: Insulin Human Lispro (Insulin Lispro 100 Units/Ml 3 Ml Vial) 0 unit SUBCUT WITHMEALSANDBED [facility]; Protocol Last Admin: 08/27/21 21:07 Dose: 9 units Documented by: Loperamide HCl (Loperamide 2 Mg Cap) 2 mg PO ASDIRECTED PRN PRN Reason: Diarrhea Last Admin: 08/20/21 03:57 Dose: 2 mg Documented by: Ondansetron HCl (Ondansetron 4 Mg Tab.Dis) 4 mg PO Q4H PRN PRN Reason: nausea, able to take PO Last Admin: 08/21/21 08:23 Dose: 4 mg Documented by: Pantoprazole Sodium (Pantoprazole 40 Mg Tab.Cr) 40 mg PO BEDTIME [facility] Last Admin: 08/27/21 21:14 Dose: 40 mg Documented by: Saccharomyces Boulardii (Saccharomyces Boulardii (Probiotic) 250 Mg Cap) 250 mg PO TID [facility] Last Admin: 08/27/21 21:13 Dose: 250 mg Documented by: Sodium Chloride (Sodium Chloride 0.9% 10 Ml Syringe) 10 ml FLUSH ASDIRECTED PRN PRN Reason: Keep Vein Open Last Admin: 08/27/21 21:16 Dose: 10 ml Documented by: Discontinued Medications Albuterol/Ipratropium (Albuterol/Ipratropium 3.0-0.5 Mg/3 Ml Neb Soln) 3 ml NEB Q6HRRT [facility] Last Admin: 08/17/21 00:22 Dose: Not Given Documented by: Bismuth Subsalicylate (Bismuth Subsalicylate 262 Mg Tab.Chew) 524 mg PO Q4H PRN PRN Reason: Diarrhea Last Admin: 08/18/21 21:47 Dose: 524 mg Documented by: Dextrose/Water (50% Dextrose In Water 50 Ml Syringe) 50 ml IVPUSH Q15M PRN PRN Reason: Hypoglycemia Glucagon (Glucagon,Human Recombinant 1 Mg Vial) 1 mg IM Q15M PRN PRN Reason: Hypoglycemia Sodium Chloride (Normal Saline) 1,000 mls @ 999 mls/hr IV .BOLUS ONE Stop: 08/15/21 17:21 Last Admin: 08/15/21 16:33 Dose: 999 mls/hr Documented by: Insulin Regular in 0.9 % NACL (Myxredlin In Ns 100 Unit/100 Ml) 100 unit in 100 mls @ 8.5 mls/hr IV TITRATE [facility]; Protocol Last Admin: 08/15/21 16:34 Dose: 0.1 units/kg/hr, 8.5 mls/hr Documented by: Sodium Chloride (Normal Saline) 1,000 mls @ 125 mls/hr IV ASDIRECTED [facility] Last Infusion: 08/18/21 17:09 Dose: Infused Documented by: Ceftriaxone Sodium 1 gm/ (Sodium Chloride) 50 mls @ 100 mls/hr IV Q24H [facility] Last Admin: 08/19/21 20:29 Dose: 10 mls/hr Documented by: Azithromycin 500 mg/ Sodium (Chloride) 250 mls @ 250 mls/hr IV Q24H [facility] Last Admin: 08/15/21 20:48 Dose: 250 mls/hr Documented by: Doxycycline Hyclate 100 mg/ (Sodium Chloride) 100 mls @ 100 mls/hr IV Q12HR [facility] Last Infusion: 08/20/21 10:03 Dose: Infused Documented by: Magnesium Sulfate 2 gm/ Premix 50 mls @ 25 mls/hr IV ONETIME ONE Stop: 08/18/21 12:43 Last Infusion: 08/18/21 14:14 Dose: Infused Documented by: Lactated Ringer's (Ringers, Lactated) 1,000 mls @ 100 mls/hr IV ASDIRECTED [facility] Last Infusion: 08/18/21 23:00 Dose: 100 mls/hr Documented by: Remdesivir 200 mg/ Sodium (Chloride) 250 mls @ 250 mls/hr IV ONETIME ONE Stop: 08/20/21 15:09 Last Infusion: 08/20/21 17:38 Dose: Infused Documented by: Remdesivir 100 mg/ Sodium (Chloride) 100 mls @ 100 mls/hr IV Q24H [facility] Stop: 08/24/21 14:59 Last Infusion: 08/24/21 15:34 Dose: Infused Documented by: Insulin Glargine (Insulin Glarg,Human.Rec.Analog 100 Unit/Ml) 30 unit SUBCUT BEDTIME [facility] Last Admin: 08/19/21 20:45 Dose: 30 units Documented by: Insulin Glargine (Insulin Glarg,Human.Rec.Analog 100 Unit/Ml) 29 unit SUBCUT BEDTIME [facility] Insulin Glargine (Insulin Glarg,Human.Rec.Analog 100 Unit/Ml) 25 unit SUBCUT BEDTIME [facility] Last Admin: 08/22/21 21:09 Dose: 25 units Documented by: Insulin Glargine (Insulin Glarg,Human.Rec.Analog 100 Unit/Ml) 30 unit SUBCUT BEDTIME [facility] Last Admin: 08/24/21 22:14 Dose: 30 units Documented by: Insulin Human Lispro (Insulin Lispro 100 Units/Ml 3 Ml Vial) 7 unit SUBCUT TIDMEALS [facility] Last Admin: 08/18/21 08:09 Dose: Not Given Documented by: Ondansetron HCl (Ondansetron 4 Mg/2 Ml Sdv) 4 mg IV ONETIME ONE Stop: 08/15/21 16:22 Last Admin: 08/15/21 16:31 Dose: 4 mg Documented by: Potassium Chloride (Potassium Chloride 10 Meq Tab.Er) 40 meq PO ONETIME ONE Stop: 08/18/21 07:48 Last Admin: 08/18/21 08:14 Dose: 40 meq Documented by: - Exam Quality Assessment: Supplemental Oxygen General: Alert, Oriented HEENT: Pupils Equal, Pupils Reactive Lungs: Decreased Breath Sounds (significant improvement in upper lung briggs), Crackles Cardiovascular: Regular Rate, Regular Rhythm GI/Abdominal Exam: Normal Bowel Sounds, Soft, Non-Tender Back Exam: Normal Inspection Extremities: Normal Inspection Peripheral Pulses: 2+: Radial (L), Radial (R) Skin: Warm Neurological: No New Focal Deficit Psy/Mental Status: Alert - Patient Data Lab Results Last 24 hrs: Laboratory Results - last 24 hr 08/27/21 08/27/21 08/27/21 Range/Units 07:32 11:35 16:34 POC Glucose 174 H 221 H 341 H (70-99) mg/dL 08/27/21 Range/Units 20:58 POC Glucose 382 H (70-99) mg/dL Result Diagrams: 08/24/21 06:30 08/28/21 05:55 Sepsis Event Note - Evaluation Sepsis Screening Result: No Definite Risk - Focused Exam Vital Signs: Vital Signs Temp Pulse Pulse Resp BP BP Pulse Ox 08/28/21 05:00 98 F 69 20 141/80 H 97 08/28/21 00:00 98 F 66 20 141/73 H 96 08/27/21 21:13 83 128/67 08/27/21 19:30 08/27/21 19:21 98.3 F 83 20 128/67 95 Pulse Ox 08/28/21 05:00 08/28/21 00:00 08/27/21 21:13 08/27/21 19:30 95 08/27/21 19:21 - Problem List & Annotations (1) Acute respiratory failure with hypoxia SNOMED Code(s): 60855718, 063221817 Code(s): J96.01 - ACUTE RESPIRATORY FAILURE WITH HYPOXIA Status: Acute Current Visit: Yes (2) Gastroenteritis due to COVID-19 virus SNOMED Code(s): 607089737 Code(s): U07.1 - COVID-19; A08.39 - OTHER VIRAL ENTERITIS Status: Acute Current Visit: No (3) Hyperglycemia due to type 2 diabetes mellitus SNOMED Code(s): 802540399849851, 724772046749765 Code(s): E11.65 - TYPE 2 DIABETES MELLITUS WITH HYPERGLYCEMIA Status: Acute Current Visit: Yes Qualifiers: Diabetes mellitus intermodal dispatcher insulin use: with intermediate use Qualified Code(s): E11.65 - Type 2 diabetes mellitus with hyperglycemia; Z79.4 - manager terminal (current) use of insulin (4) Pneumonia due to COVID-19 virus SNOMED Code(s): 239777025828507906 Code(s): U07.1 - COVID-19; J12.82 - PNEUMONIA DUE TO CORONAVIRUS DISEASE 2018 Status: Acute Current Visit: Yes (5) CKD stage 3 due to type 2 diabetes mellitus SNOMED Code(s): 902714161499 Code(s): E11.22 - TYPE 2 DIABETES MELLITUS W DIABETIC CHRONIC KIDNEY DISEASE; N18.30 - CHRONIC KIDNEY DISEASE, STAGE 3 UNSPECIFIED Status: Acute Current Visit: Yes (6) Wound, open, foot SNOMED Code(s): 043077896 Code(s): S91.309A - UNSPECIFIED OPEN WOUND, UNSPECIFIED FOOT, INITIAL ENCOUNTER Status: Acute Current Visit: Yes - Problem List Review Problem List Initiated/Reviewed/Updated: Yes - My Orders Last 24 Hours: My Active Orders 08/28/21 05:55 CMP [COMPREHENSIVE METABOLIC PN,CMP] [CHEM] AM - Assessment Assessment:: a - Plan Plan:: ACUTE CONDITIONS: # Covid 19 viral pneumonia acute respiratory failure with hypoxia 2/2 above - currently requiring 6L supplemental oxygen to maintain saturations >90% - improved from prior day - wean oxygen as tolerated - maintains full code status - continue dexamethasone and remdesivir (started 08/20/21) - remdesivir completed - dexamethasone until 08/30/21 - aggressive IS while awake - laboratory monitoring per protocol - blood cultures negative # Covid 19 related diarrhea: - PRN imodium as directed # DMII, insulin dependent -Blood sugars overall improved, elevated 2/2 dexamethasone -continue with 35 units of glargine and increased to high dose sliding scale insulin CHRONIC CONDITIONS: - 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
[2021-08-28] MEDS: Insulin Lispro 100 Units/ML 3 ML Vial SUBCUT SCH ×4 (08:28→20:21)
[2021-08-28] MEDS: Saccharomyces Boulardii (Probiotic) 250 MG Cap PO SCH ×3 (08:29→20:12)
[2021-08-28] MEDS: Carvedilol 6.25 MG Tab PO SCH ×2 (08:29→20:12)
[2021-08-28] MEDS: Enoxaparin 30 MG/0.3 ML Syringe SUBCUT SCH (08:30)
[2021-08-28] MEDS: Dexamethasone 6 MG TABLET PO SCH (08:30)
--- NOTE | 2021-08-28 19:16 | PCM.DCSUM1 ---
Discharge Summary - Hospital Course Free Text/Narrative:: Patient is a 56-year-old female with a past medical history of CKD, type 2 diabetes on insulin, chronic right foot wound status post transmetatarsal amputation, hypertension, obesity. Patient was originally admitted with COVID-19 pneumonia and acute hypoxic respiratory failure. Patient presented initially with body aches, chills, diarrhea and vomiting. Patient had a CT scan chest on admission which showed signs of bilateral interstitial infiltrates concerning for COVID-19 pneumonia. Patient was admitted for further treatment and monitoring. For her acute hypoxic respiratory failure patient eventually required up to 10 L via nasal cannula to maintain her oxygen saturations. Patient was given a course of remdesivir and dexamethasone. Blood cultures were negative for growth. Patient had continued improvement in her oxygenation was able to be weaned down to 2-3L via NC to maintain her oxygen saturations >90 given her COVID 19 pneumonia and acute hypoxic respiratory failure. For COVID-19 related diarrhea pnr Imodium was used and this resolved, electrolyte abnormalities resolved. For type 2 diabetes patient had hyperglycemia likely secondary to infection and dexamethasone. She had her glargine increased and was increased to a higher sliding scale insulin. With patient's improvement in oxygenation she was medically stable for discharge on 08-29-21 and will be discharged home with home oxygen. Patient will follow up with her primary care physician. For patient's lower extremity wound daily dressings were changed and applied. No evidence of infection was noted. Patient was unable to get her MRI well admitted inpatient. Recommend close follow-up with her primary/surgery team and repeat MRI as soon as possible. Continue daily dressing changes and offloading as able. - Discharge Data Discharge Date: 08/29/21 Discharge Disposition: Home, Self-Care 01 Condition: Good - Referral to Home Health Primary Care Physician: PCP None - Discharge Diagnosis/Problem(s) (1) Acute respiratory failure with hypoxia SNOMED Code(s): 06565470, 382511740 ICD Code: J96.01 - ACUTE RESPIRATORY FAILURE WITH HYPOXIA Status: Acute Current Visit: Yes (2) Gastroenteritis due to COVID-19 virus SNOMED Code(s): 413786156 ICD Code: U07.1 - COVID-19; A08.39 - OTHER VIRAL ENTERITIS Status: Acute Current Visit: Yes (3) Hyperglycemia due to type 2 diabetes mellitus SNOMED Code(s): 277193793288248, 337623868319744 ICD Code: E11.65 - TYPE 2 DIABETES MELLITUS WITH HYPERGLYCEMIA Status: Acute Current Visit: Yes Qualifiers: Diabetes mellitus snf insulin use: with tank terminal gauger use Qualified Code(s): E11.65 - Type 2 diabetes mellitus with hyperglycemia; Z79.4 - [facility] (current) use of insulin (4) Pneumonia due to COVID-19 virus SNOMED Code(s): 171466927636429580 ICD Code: U07.1 - COVID-19; J12.82 - PNEUMONIA DUE TO CORONAVIRUS DISEASE 2018 Status: Acute Current Visit: Yes (5) CKD stage 3 due to type 2 diabetes mellitus SNOMED Code(s): 169681056310 ICD Code: E11.22 - TYPE 2 DIABETES MELLITUS W DIABETIC CHRONIC KIDNEY DISEASE; N18.30 - CHRONIC KIDNEY DISEASE, STAGE 3 UNSPECIFIED Status: Acute Current Visit: Yes (6) Wound, open, foot SNOMED Code(s): 499930459 ICD Code: S91.309A - UNSPECIFIED OPEN WOUND, UNSPECIFIED FOOT, INITIAL ENCOUNTER Status: Acute Current Visit: Yes - Patient Instructions Diet: Diabetic Diet Wound/Incision Care: Change Dressing Daily - Discharge Plan *PRESCRIPTION DRUG MONITORING PROGRAM REVIEWED*: Not Applicable *COPY OF PRESCRIPTION DRUG MONITORING REPORT IN PATIENT HEIDE: Not Applicable Home Medications: Home Meds Aspirin [Aspirin EC] 81 mg PO BEDTIME 12/30/20 [History] Chlorthalidone 25 mg PO DAILY 12/30/20 [History] Cholecalciferol (Vitamin D3) [Vitamin D3] 2,000 unit PO DAILY 12/30/20 [History] Insulin Aspart [NovoLOG] 3 - 5 units SQ TIDMEALS 12/30/20 [History] Pioglitazone HCl [Actos] 30 mg PO DAILY 12/30/20 [History] Spironolactone [Aldactone] 25 mg PO Q48H 12/30/20 [History] amLODIPine [Norvasc] 7.5 mg PO DAILY 12/30/20 [History] atorvaSTATin Calcium [Lipitor] 20 mg PO DAILY 12/30/20 [History] carvediloL [Coreg] 6.25 mg PO BID 12/30/20 [History] metFORMIN [Glucophage] 1,000 mg PO BIDMEALS 12/30/20 [History] Insulin Detemir [Levemir Flextouch] 35 unit SQ BEDTIME #0 08/29/21 [Rx] Oxygen Therapy Mode: Nasal Cannula Oxygen Flow Rate (L/min): 2 (2-3L NC) Maintain SpO2% greater than: 90 Patient Handouts: COVID-19 Frequently Asked Questions Forms: ED Department Discharge - Discharge Summary/Plan Comment DC Time >30 min.: Yes Total # of Minutes for Discharge Time: 30 minutes - Patient Data Vitals - Most Recent: Last Vital Signs Temp 98.1 F 08/28/21 16:00 Pulse 74 08/28/21 16:00 Resp 20 08/28/21 16:00 BP 132/70 08/28/21 16:00 Pulse Ox 96 08/28/21 16:00 Weight - Most Recent: 186 lb 4.8 oz I&O - Last 24 hours: Intake & Output 08/28/21 08/28/21 08/28/21 06:59 14:59 22:59 Intake Total 500 440 Balance 500 440 Lab Results - Last 24 hrs: Laboratory Results - last 24 hr 08/27/21 08/28/21 08/28/21 Range/Units 20:58 05:55 07:49 Sodium 141 (136-145) mmol/L Potassium 4.4 (3.5-5.1) mmol/L Chloride 104 (98-107) mmol/L Carbon Dioxide 31 (21-32) mmol/L Anion Gap 10.4 (7-13) mEq/L BUN 25 H (7-18) mg/dL Creatinine 1.11 H (0.55-1.02) mg/dL Est Cr Clr Drug Dosing 53.61 mL/min Estimated GFR (MDRD) 51 BUN/Creatinine Ratio 22.5 (No establ ref range) Glucose 216 H (70-99) mg/dL POC Glucose 382 H 190 H (70-99) mg/dL Calcium 8.2 L (8.5-10.1) mg/dL Total Bilirubin 0.5 (0.2-1.0) mg/dL AST 10 L (15-37) U/L ALT 22 (14-59) U/L Alkaline Phosphatase 68 (46-116) U/L Total Protein 5.1 L (6.4-8.2) g/dL Albumin 2.1 L (3.4-5.0) g/dL Globulin 3.0 Albumin/Globulin Ratio 0.70 08/28/21 08/28/21 Range/Units 12:06 17:18 Sodium (136-145) mmol/L Potassium (3.5-5.1) mmol/L Chloride (98-107) mmol/L Carbon Dioxide (21-32) mmol/L Anion Gap (7-13) mEq/L BUN (7-18) mg/dL Creatinine (0.55-1.02) mg/dL Est Cr Clr Drug Dosing mL/min Estimated GFR (MDRD) BUN/Creatinine Ratio (No establ ref range) Glucose (70-99) mg/dL POC Glucose 260 H 299 H (70-99) mg/dL Calcium (8.5-10.1) mg/dL Total Bilirubin (0.2-1.0) mg/dL AST (15-37) U/L ALT (14-59) U/L Alkaline Phosphatase (46-116) U/L Total Protein (6.4-8.2) g/dL Albumin (3.4-5.0) g/dL Globulin Albumin/Globulin Ratio Med Orders - Current: Current Medications Acetaminophen (Acetaminophen 325 Mg Tab) 650 mg PO Q4H PRN PRN Reason: Pain (Mild 1-3)/fever Last Admin: 08/19/21 20:36 Dose: 650 mg Documented by: Albuterol (Albuterol 6.7 Gm Inhaler) 0 gm INH Q4H PRN PRN Reason: Shortness of Breath Last Admin: 08/25/21 12:45 Dose: 2 puff Documented by: Benzocaine/Menthol (Benzocaine/Cetylpyridinium/Menthol Lozenge) 1 lozenge MUCMEM Q2HR PRN PRN Reason: Cough Last Admin: 08/25/21 14:55 Dose: 1 lozenge Documented by: Benzonatate (Benzonatate 100 Mg Cap) 100 mg PO Q8H PRN PRN Reason: Other Last Admin: 08/24/21 17:14 Dose: 100 mg Documented by: Carvedilol (Carvedilol 6.25 Mg Tab) 6.25 mg PO BID [facility] Last Admin: 08/28/21 08:29 Dose: 6.25 mg Documented by: Dexamethasone (Dexamethasone 6 Mg Tablet) 6 mg PO DAILY [facility] Stop: 08/29/21 09:01 Last Admin: 08/28/21 08:30 Dose: 6 mg Documented by: Dextrose/Water (50% Dextrose In Water 50 Ml Syringe) 50 ml IVPUSH Q15M PRN PRN Reason: Hypoglycemia Enoxaparin Sodium (Enoxaparin 30 Mg/0.3 Ml Syringe) 30 mg SUBCUT DAILY [facility] Last Admin: 08/28/21 08:30 Dose: 30 mg Documented by: Glucagon (Glucagon,Human Recombinant 1 Mg Vial) 1 mg IM Q15M PRN PRN Reason: Hypoglycemia Insulin Glargine (Insulin Glarg,Human.Rec.Analog 100 Unit/Ml) 35 unit SUBCUT BEDTIME [facility] Last Admin: 08/27/21 21:12 Dose: 35 unit Documented by: Insulin Human Lispro (Insulin Lispro 100 Units/Ml 3 Ml Vial) 0 unit SUBCUT WITHMEALSANDBED [facility]; Protocol Last Admin: 08/28/21 17:42 Dose: 9 units Documented by: Loperamide HCl (Loperamide 2 Mg Cap) 2 mg PO ASDIRECTED PRN PRN Reason: Diarrhea Last Admin: 08/20/21 03:57 Dose: 2 mg Documented by: Ondansetron HCl (Ondansetron 4 Mg Tab.Dis) 4 mg PO Q4H PRN PRN Reason: nausea, able to take PO Last Admin: 08/21/21 08:23 Dose: 4 mg Documented by: Pantoprazole Sodium (Pantoprazole 40 Mg Tab.Cr) 40 mg PO BEDTIME [facility] Last Admin: 08/27/21 21:14 Dose: 40 mg Documented by: Saccharomyces Boulardii (Saccharomyces Boulardii (Probiotic) 250 Mg Cap) 250 mg PO TID [facility] Last Admin: 08/28/21 13:37 Dose: 250 mg Documented by: Sodium Chloride (Sodium Chloride 0.9% 10 Ml Syringe) 10 ml FLUSH ASDIRECTED PRN PRN Reason: Keep Vein Open Last Admin: 08/27/21 21:16 Dose: 10 ml Documented by: Discontinued Medications Albuterol/Ipratropium (Albuterol/Ipratropium 3.0-0.5 Mg/3 Ml Neb Soln) 3 ml NEB Q6HRRT [facility] Last Admin: 08/17/21 00:22 Dose: Not Given Documented by: Bismuth Subsalicylate (Bismuth Subsalicylate 262 Mg Tab.Chew) 524 mg PO Q4H PRN PRN Reason: Diarrhea Last Admin: 08/18/21 21:47 Dose: 524 mg Documented by: Dextrose/Water (50% Dextrose In Water 50 Ml Syringe) 50 ml IVPUSH Q15M PRN PRN Reason: Hypoglycemia Glucagon (Glucagon,Human Recombinant 1 Mg Vial) 1 mg IM Q15M PRN PRN Reason: Hypoglycemia Sodium Chloride (Normal Saline) 1,000 mls @ 999 mls/hr IV .BOLUS ONE Stop: 08/15/21 17:21 Last Admin: 08/15/21 16:33 Dose: 999 mls/hr Documented by: Insulin Regular in 0.9 % NACL (Myxredlin In Ns 100 Unit/100 Ml) 100 unit in 100 mls @ 8.5 mls/hr IV TITRATE [facility]; Protocol Last Admin: 08/15/21 16:34 Dose: 0.1 units/kg/hr, 8.5 mls/hr Documented by: Sodium Chloride (Normal Saline) 1,000 mls @ 125 mls/hr IV ASDIRECTED [facility] Last Infusion: 08/18/21 17:09 Dose: Infused Documented by: Ceftriaxone Sodium 1 gm/ (Sodium Chloride) 50 mls @ 100 mls/hr IV Q24H [facility] Last Admin: 08/19/21 20:29 Dose: 10 mls/hr Documented by: Azithromycin 500 mg/ Sodium (Chloride) 250 mls @ 250 mls/hr IV Q24H [facility] Last Admin: 08/15/21 20:48 Dose: 250 mls/hr Documented by: Doxycycline Hyclate 100 mg/ (Sodium Chloride) 100 mls @ 100 mls/hr IV Q12HR [facility] Last Infusion: 08/20/21 10:03 Dose: Infused Documented by: Magnesium Sulfate 2 gm/ Premix 50 mls @ 25 mls/hr IV ONETIME ONE Stop: 08/18/21 12:43 Last Infusion: 08/18/21 14:14 Dose: Infused Documented by: Lactated Ringer's (Ringers, Lactated) 1,000 mls @ 100 mls/hr IV ASDIRECTED [facility] Last Infusion: 08/18/21 23:00 Dose: 100 mls/hr Documented by: Remdesivir 200 mg/ Sodium (Chloride) 250 mls @ 250 mls/hr IV ONETIME ONE Stop: 08/20/21 15:09 Last Infusion: 08/20/21 17:38 Dose: Infused Documented by: Remdesivir 100 mg/ Sodium (Chloride) 100 mls @ 100 mls/hr IV Q24H [facility] Stop: 08/24/21 14:59 Last Infusion: 08/24/21 15:34 Dose: Infused Documented by: Insulin Glargine (Insulin Glarg,Human.Rec.Analog 100 Unit/Ml) 30 unit SUBCUT BEDTIME [facility] Last Admin: 08/19/21 20:45 Dose: 30 units Documented by: Insulin Glargine (Insulin Glarg,Human.Rec.Analog 100 Unit/Ml) 29 unit SUBCUT BEDTIME [facility] Insulin Glargine (Insulin Glarg,Human.Rec.Analog 100 Unit/Ml) 25 unit SUBCUT BEDTIME [facility] Last Admin: 08/22/21 21:09 Dose: 25 units Documented by: Insulin Glargine (Insulin Glarg,Human.Rec.Analog 100 Unit/Ml) 30 unit SUBCUT BEDTIME [facility] Last Admin: 08/24/21 22:14 Dose: 30 units Documented by: Insulin Human Lispro (Insulin Lispro 100 Units/Ml 3 Ml Vial) 7 unit SUBCUT TIDMEALS [facility] Last Admin: 08/18/21 08:09 Dose: Not Given Documented by: Ondansetron HCl (Ondansetron 4 Mg/2 Ml Sdv) 4 mg IV ONETIME ONE Stop: 08/15/21 16:22 Last Admin: 08/15/21 16:31 Dose: 4 mg Documented by: Potassium Chloride (Potassium Chloride 10 Meq Tab.Er) 40 meq PO ONETIME ONE Stop: 08/18/21 07:48 Last Admin: 08/18/21 08:14 Dose: 40 meq Documented by:
[2021-08-28] MEDS: Pantoprazole 40 MG Tab.CR PO SCH (20:12)
[2021-08-28] MEDS: Insulin Glarg,Human.Rec.Analog 100 Unit/ML SUBCUT SCH (20:23)
--- NOTE | 2021-08-29 05:40 | PCM.PN ---
- General Info Date of Service: 08/29/21 Admission Dx/Problem (Free Text): covid 19 viral infection, covid related diarrhea Subjective Update: Patient states that her breathing stable to improved from prior day, overnight patient again had improvement in her oxygen requirement and is now requiring 2 L nasal cannula. Denies any chest pain pressure, fevers, chills, abdominal pain, nausea or vomiting. Remainder of review of systems is negative except those listed above. - Patient Data Vitals - Most Recent: Last Vital Signs Temp 97.3 F 08/29/21 03:43 Pulse 56 L 08/29/21 03:43 Resp 20 08/29/21 03:43 BP 151/76 H 08/29/21 03:43 Pulse Ox 96 08/29/21 03:43 Weight - Most Recent: 186 lb 4.8 oz I&O - Last 24 Hours: Intake & Output 08/28/21 08/28/21 08/29/21 14:59 22:59 06:59 Intake Total 500 440 Balance 500 440 Lab Results Last 24 Hours: Laboratory Results - last 24 hr 08/28/21 08/28/21 08/28/21 Range/Units 05:55 07:49 12:06 Sodium 141 (136-145) mmol/L Potassium 4.4 (3.5-5.1) mmol/L Chloride 104 (98-107) mmol/L Carbon Dioxide 31 (21-32) mmol/L Anion Gap 10.4 (7-13) mEq/L BUN 25 H (7-18) mg/dL Creatinine 1.11 H (0.55-1.02) mg/dL Est Cr Clr Drug Dosing 53.61 mL/min Estimated GFR (MDRD) 51 BUN/Creatinine Ratio 22.5 (No establ ref range) Glucose 216 H (70-99) mg/dL POC Glucose 190 H 260 H (70-99) mg/dL Calcium 8.2 L (8.5-10.1) mg/dL Total Bilirubin 0.5 (0.2-1.0) mg/dL AST 10 L (15-37) U/L ALT 22 (14-59) U/L Alkaline Phosphatase 68 (46-116) U/L Total Protein 5.1 L (6.4-8.2) g/dL Albumin 2.1 L (3.4-5.0) g/dL Globulin 3.0 Albumin/Globulin Ratio 0.70 08/28/21 08/28/21 Range/Units 17:18 20:08 Sodium (136-145) mmol/L Potassium (3.5-5.1) mmol/L Chloride (98-107) mmol/L Carbon Dioxide (21-32) mmol/L Anion Gap (7-13) mEq/L BUN (7-18) mg/dL Creatinine (0.55-1.02) mg/dL Est Cr Clr Drug Dosing mL/min Estimated GFR (MDRD) BUN/Creatinine Ratio (No establ ref range) Glucose (70-99) mg/dL POC Glucose 299 H 332 H (70-99) mg/dL Calcium (8.5-10.1) mg/dL Total Bilirubin (0.2-1.0) mg/dL AST (15-37) U/L ALT (14-59) U/L Alkaline Phosphatase (46-116) U/L Total Protein (6.4-8.2) g/dL Albumin (3.4-5.0) g/dL Globulin Albumin/Globulin Ratio Med Orders - Current: Current Medications Acetaminophen (Acetaminophen 325 Mg Tab) 650 mg PO Q4H PRN PRN Reason: Pain (Mild 1-3)/fever Last Admin: 08/19/21 20:36 Dose: 650 mg Documented by: Albuterol (Albuterol 6.7 Gm Inhaler) 0 gm INH Q4H PRN PRN Reason: Shortness of Breath Last Admin: 08/25/21 12:45 Dose: 2 puff Documented by: Benzocaine/Menthol (Benzocaine/Cetylpyridinium/Menthol Lozenge) 1 lozenge MUCMEM Q2HR PRN PRN Reason: Cough Last Admin: 08/25/21 14:55 Dose: 1 lozenge Documented by: Benzonatate (Benzonatate 100 Mg Cap) 100 mg PO Q8H PRN PRN Reason: Other Last Admin: 08/24/21 17:14 Dose: 100 mg Documented by: Carvedilol (Carvedilol 6.25 Mg Tab) 6.25 mg PO BID JONNY Last Admin: 08/28/21 20:12 Dose: 6.25 mg Documented by: Dexamethasone (Dexamethasone 6 Mg Tablet) 6 mg PO DAILY JONNY Stop: 08/29/21 09:01 Last Admin: 08/28/21 08:30 Dose: 6 mg Documented by: Dextrose/Water (50% Dextrose In Water 50 Ml Syringe) 50 ml IVPUSH Q15M PRN PRN Reason: Hypoglycemia Enoxaparin Sodium (Enoxaparin 30 Mg/0.3 Ml Syringe) 30 mg SUBCUT DAILY [facility] Last Admin: 08/28/21 08:30 Dose: 30 mg Documented by: Glucagon (Glucagon,Human Recombinant 1 Mg Vial) 1 mg IM Q15M PRN PRN Reason: Hypoglycemia Insulin Glargine (Insulin Glarg,Human.Rec.Analog 100 Unit/Ml) 35 unit SUBCUT BEDTIME [facility] Last Admin: 08/28/21 20:23 Dose: 35 unit Documented by: Insulin Human Lispro (Insulin Lispro 100 Units/Ml 3 Ml Vial) 0 unit SUBCUT WITHMEALSANDBED [facility]; Protocol Last Admin: 08/28/21 20:21 Dose: 8 units Documented by: Loperamide HCl (Loperamide 2 Mg Cap) 2 mg PO ASDIRECTED PRN PRN Reason: Diarrhea Last Admin: 08/20/21 03:57 Dose: 2 mg Documented by: Ondansetron HCl (Ondansetron 4 Mg Tab.Dis) 4 mg PO Q4H PRN PRN Reason: nausea, able to take PO Last Admin: 08/21/21 08:23 Dose: 4 mg Documented by: Pantoprazole Sodium (Pantoprazole 40 Mg Tab.Cr) 40 mg PO BEDTIME [facility] Last Admin: 08/28/21 20:12 Dose: 40 mg Documented by: Saccharomyces Boulardii (Saccharomyces Boulardii (Probiotic) 250 Mg Cap) 250 mg PO TID [facility] Last Admin: 08/28/21 20:12 Dose: 250 mg Documented by: Sodium Chloride (Sodium Chloride 0.9% 10 Ml Syringe) 10 ml FLUSH ASDIRECTED PRN PRN Reason: Keep Vein Open Last Admin: 08/27/21 21:16 Dose: 10 ml Documented by: Discontinued Medications Albuterol/Ipratropium (Albuterol/Ipratropium 3.0-0.5 Mg/3 Ml Neb Soln) 3 ml NEB Q6HRRT [facility] Last Admin: 08/17/21 00:22 Dose: Not Given Documented by: Bismuth Subsalicylate (Bismuth Subsalicylate 262 Mg Tab.Chew) 524 mg PO Q4H PRN PRN Reason: Diarrhea Last Admin: 08/18/21 21:47 Dose: 524 mg Documented by: Dextrose/Water (50% Dextrose In Water 50 Ml Syringe) 50 ml IVPUSH Q15M PRN PRN Reason: Hypoglycemia Glucagon (Glucagon,Human Recombinant 1 Mg Vial) 1 mg IM Q15M PRN PRN Reason: Hypoglycemia Sodium Chloride (Normal Saline) 1,000 mls @ 999 mls/hr IV .BOLUS ONE Stop: 08/15/21 17:21 Last Admin: 08/15/21 16:33 Dose: 999 mls/hr Documented by: Insulin Regular in 0.9 % NACL (Myxredlin In Ns 100 Unit/100 Ml) 100 unit in 100 mls @ 8.5 mls/hr IV TITRATE [facility]; Protocol Last Admin: 08/15/21 16:34 Dose: 0.1 units/kg/hr, 8.5 mls/hr Documented by: Sodium Chloride (Normal Saline) 1,000 mls @ 125 mls/hr IV ASDIRECTED [facility] Last Infusion: 08/18/21 17:09 Dose: Infused Documented by: Ceftriaxone Sodium 1 gm/ (Sodium Chloride) 50 mls @ 100 mls/hr IV Q24H [facility] Last Admin: 08/19/21 20:29 Dose: 10 mls/hr Documented by: Azithromycin 500 mg/ Sodium (Chloride) 250 mls @ 250 mls/hr IV Q24H [facility] Last Admin: 08/15/21 20:48 Dose: 250 mls/hr Documented by: Doxycycline Hyclate 100 mg/ (Sodium Chloride) 100 mls @ 100 mls/hr IV Q12HR [facility] Last Infusion: 08/20/21 10:03 Dose: Infused Documented by: Magnesium Sulfate 2 gm/ Premix 50 mls @ 25 mls/hr IV ONETIME ONE Stop: 08/18/21 12:43 Last Infusion: 08/18/21 14:14 Dose: Infused Documented by: Lactated Ringer's (Ringers, Lactated) 1,000 mls @ 100 mls/hr IV ASDIRECTED [facility] Last Infusion: 08/18/21 23:00 Dose: 100 mls/hr Documented by: Remdesivir 200 mg/ Sodium (Chloride) 250 mls @ 250 mls/hr IV ONETIME ONE Stop: 08/20/21 15:09 Last Infusion: 08/20/21 17:38 Dose: Infused Documented by: Remdesivir 100 mg/ Sodium (Chloride) 100 mls @ 100 mls/hr IV Q24H [facility] Stop: 08/24/21 14:59 Last Infusion: 08/24/21 15:34 Dose: Infused Documented by: Insulin Glargine (Insulin Glarg,Human.Rec.Analog 100 Unit/Ml) 30 unit SUBCUT BEDTIME [facility] Last Admin: 08/19/21 20:45 Dose: 30 units Documented by: Insulin Glargine (Insulin Glarg,Human.Rec.Analog 100 Unit/Ml) 29 unit SUBCUT BEDTIME [facility] Insulin Glargine (Insulin Glarg,Human.Rec.Analog 100 Unit/Ml) 25 unit SUBCUT B EDTIME [facility] Last Admin: 08/22/21 21:09 Dose: 25 units Documented by: Insulin Glargine (Insulin Glarg,Human.Rec.Analog 100 Unit/Ml) 30 unit SUBCUT BEDTIME [facility] Last Admin: 08/24/21 22:14 Dose: 30 units Documented by: Insulin Human Lispro (Insulin Lispro 100 Units/Ml 3 Ml Vial) 7 unit SUBCUT T IDMEALS [facility] Last Admin: 08/18/21 08:09 Dose: Not Given Documented by: Ondansetron HCl (Ondansetron 4 Mg/2 Ml Sdv) 4 mg IV ONETIME ONE Stop: 08/15/21 16:22 Last Admin: 08/15/21 16:31 Dose: 4 mg Documented by: Potassium Chloride (Potassium Chloride 10 Meq Tab.Er) 40 meq PO ONETIME ONE Stop: 08/18/21 07:48 Last Admin: 08/18/21 08:14 Dose: 40 meq Documented by: - Exam Quality Assessment: Supplemental Oxygen General: Alert, Oriented HEENT: Pupils Equal Neck: Supple Lungs: Clear to Auscultation, Normal Respiratory Effort Cardiovascular: Regular Rate, Regular Rhythm GI/Abdominal Exam: Normal Bowel Sounds, Soft, Non-Tender Extremities: Other (transmetatarsal amputation - significant lower extramity plantar wound - no evidence of infection) Peripheral Pulses: 2+: Radial (L), Radial (R) Skin: Warm Neurological: No New Focal Deficit Psy/Mental Status: Alert - Patient Data Lab Results Last 24 hrs: Laboratory Results - last 24 hr 08/28/21 08/28/21 08/28/21 Range/Units 05:55 07:49 12:06 Sodium 141 (136-145) mmol/L Potassium 4.4 (3.5-5.1) mmol/L Chloride 104 (98-107) mmol/L Carbon Dioxide 31 (21-32) mmol/L Anion Gap 10.4 (7-13) mEq/L BUN 25 H (7-18) mg/dL Creatinine 1.11 H (0.55-1.02) mg/dL Est Cr Clr Drug Dosing 53.61 mL/min Estimated GFR (MDRD) 51 BUN/Creatinine Ratio 22.5 (No establ ref range) Glucose 216 H (70-99) mg/dL POC Glucose 190 H 260 H (70-99) mg/dL Calcium 8.2 L (8.5-10.1) mg/dL Total Bilirubin 0.5 (0.2-1.0) mg/dL AST 10 L (15-37) U/L ALT 22 (14-59) U/L Alkaline Phosphatase 68 (46-116) U/L Total Protein 5.1 L (6.4-8.2) g/dL Albumin 2.1 L (3.4-5.0) g/dL Globulin 3.0 Albumin/Globulin Ratio 0.70 08/28/21 08/28/21 Range/Units 17:18 20:08 Sodium (136-145) mmol/L Potassium (3.5-5.1) mmol/L Chloride (98-107) mmol/L Carbon Dioxide (21-32) mmol/L Anion Gap (7-13) mEq/L BUN (7-18) mg/dL Creatinine (0.55-1.02) mg/dL Est Cr Clr Drug Dosing mL/min Estimated GFR (MDRD) BUN/Creatinine Ratio (No establ ref range) Glucose (70-99) mg/dL POC Glucose 299 H 332 H (70-99) mg/dL Calcium (8.5-10.1) mg/dL Total Bilirubin (0.2-1.0) mg/dL AST (15-37) U/L ALT (14-59) U/L Alkaline Phosphatase (46-116) U/L Total Protein (6.4-8.2) g/dL Albumin (3.4-5.0) g/dL Globulin Albumin/Globulin Ratio Result Diagrams: 08/24/21 06:30 08/28/21 05:55 Sepsis Event Note - Evaluation Sepsis Screening Result: No Definite Risk - Focused Exam Vital Signs: Vital Signs Temp Pulse Pulse Resp BP BP Pulse Ox 08/29/21 03:43 97.3 F 56 L 20 151/76 H 96 08/28/21 20:12 84 120/62 08/28/21 20:00 96.9 F 84 20 120/62 84 L 08/28/21 19:00 Pulse Ox 08/29/21 03:43 08/28/21 20:12 08/28/21 20:00 08/28/21 19:00 91 L - Problem List & Annotations (1) Acute respiratory failure with hypoxia SNOMED Code(s): 50492560, 756058331 Code(s): J96.01 - ACUTE RESPIRATORY FAILURE WITH HYPOXIA Status: Acute Current Visit: Yes (2) Gastroenteritis due to COVID-19 virus SNOMED Code(s): 227350997 Code(s): U07.1 - COVID-19; A08.39 - OTHER VIRAL ENTERITIS Status: Acute Current Visit: Yes (3) Hyperglycemia due to type 2 diabetes mellitus SNOMED Code(s): 681990433353421, 140148581955068 Code(s): E11.65 - TYPE 2 DIABETES MELLITUS WITH HYPERGLYCEMIA Status: Acute Current Visit: Yes Qualifiers: Diabetes mellitus halfway insulin use: with rn disease management use Qualified Code(s): E11.65 - Type 2 diabetes mellitus with hyperglycemia; Z79.4 - skilled nursing (current) use of insulin (4) Pneumonia due to COVID-19 virus SNOMED Code(s): 754393967579521066 Code(s): U07.1 - COVID-19; J12.82 - PNEUMONIA DUE TO CORONAVIRUS DISEASE 2019 Status: Acute Current Visit: Yes (5) CKD stage 3 due to type 2 diabetes mellitus SNOMED Code(s): 661561654737 Code(s): E11.22 - TYPE 2 DIABETES MELLITUS W DIABETIC CHRONIC KIDNEY DISEASE; N18.30 - CHRONIC KIDNEY DISEASE, STAGE 3 UNSPECIFIED Status: Acute Current Visit: Yes (6) Wound, open, foot SNOMED Code(s): 244420393 Code(s): S91.309A - UNSPECIFIED OPEN WOUND, UNSPECIFIED FOOT, INITIAL ENCOUNTER Status: Acute Current Visit: Yes (7) Acute hypoxemic respiratory failure SNOMED Code(s): 797007447 Code(s): J96.01 - ACUTE RESPIRATORY FAILURE WITH HYPOXIA Status: Acute Current Visit: Yes - Problem List Review Problem List Initiated/Reviewed/Updated: Yes - Assessment Assessment:: a - Plan Plan:: ACUTE CONDITIONS: # Covid 19 viral pneumonia acute respiratory failure with hypoxia 2/2 above - currently requiring 2L supplemental oxygen to maintain saturations >90% - improved from prior day - wean oxygen as tolerated - maintains full code status - continue dexamethasone and remdesivir (started 08/20/21) - remdesivir completed - dexamethasone completed - aggressive IS while awake - laboratory monitoring per protocol - blood cultures negative # Covid 19 related diarrhea: - PRN imodium as directed # DMII, insulin dependent -Blood sugars overall improved, elevated 2/2 dexamethasone -continue with 35 units of glargine and increased to high dose sliding scale insulin CHRONIC CONDITIONS: - chronic ulcer of right foot pad s/p transmetatarsal amputation - continue dressing changes - no signs of infection but concerns for deeper tunneling of wound - offloading as able - was supposed to have MRI 08/26/21 but cancelled due to hospitalization - will need to ensure follow up with surgery/podiatry - patient had been following with physician - CKD Stage III, currently baseline - obesity: BMI 30-34 on admit DVT prophylaxis: subQ heparin Code status: Full Dispo: Given improvement and stability on 2 to 3 L oxygen patient medically stable for discharge with home O2
[2021-08-29] MEDS: Insulin Lispro 100 Units/ML 3 ML Vial SUBCUT SCH (08:41)
[2021-08-29] MEDS: Saccharomyces Boulardii (Probiotic) 250 MG Cap PO SCH (08:58)
[2021-08-29] MEDS: Enoxaparin 30 MG/0.3 ML Syringe SUBCUT SCH (08:59)
[2021-08-29] MEDS: Carvedilol 6.25 MG Tab PO SCH (08:59)
[2021-08-29] MEDS: Dexamethasone 6 MG TABLET PO SCH (08:59)
== END 2021-08-29 11:30 | disposition home or self-care (01) | DRG 177 ==
LOC: DL.ED 15:58 → DL.MS 18:15 → DL.ED 18:17
PROVIDERS: ADMIT Internal Medicine; ATTEND Internal Medicine
PROC: 8E0ZXY6 Isolation (ICD-10-PCS; principal; 2021-08-18)
PROC: XW033E5 Introduction of Remdesivir Anti-infective into Peripheral Vein, Percutaneous Approach, New Technology Group 5 (ICD-10-PCS; 2021-08-20)
PROC: 3E0DX3Z Introduction of Anti-inflammatory into Mouth and Pharynx, External Approach (ICD-10-PCS; 2021-08-20)
DX: U07.1 COVID-19 (principal); J12.82 Pneumonia due to coronavirus disease 2019; J96.01 Acute respiratory failure with hypoxia; J15.9 Unspecified bacterial pneumonia; A08.39 Other viral enteritis; N17.9 Acute kidney failure, unspecified; E11.65 Type 2 diabetes mellitus with hyperglycemia; N18.30 Chronic kidney disease, stage 3 unspecified; E11.22 Type 2 diabetes mellitus with diabetic chronic kidney disease; I12.9 Hypertensive chronic kidney disease with stage 1 through stage 4 chronic kidney disease, or unspecified chronic kidney disease; E86.0 Dehydration; E11.621 Type 2 diabetes mellitus with foot ulcer; L97.519 Non-pressure chronic ulcer of other part of right foot with unspecified severity; E87.6 Hypokalemia; Z79.4 Long term (current) use of insulin; Z90.49 Acquired absence of other specified parts of digestive tract; Z79.82 Long term (current) use of aspirin; Z88.1 Allergy status to other antibiotic agents; Z89.431 Acquired absence of right foot; Z28.82 Immunization not carried out because of caregiver refusal
CPT/HCPCS: 0240U; 36415; 36600; 71045; 71250; 80048; 80053; 80076; 81001; 82009; 82150; 82248; 82803; 82947; 83605; 83690; 83735; 83880; 84145; 84484; 85008; 85025; 85027; 85379; 85610; 85730; 86140; 87040; 93005; 96374; 99232; 99238; 99285-25; A9270-GY; J0456; J0696; J1650; J1815-GY; J2405; J3475; J3490; J7030; J7050; J7120; J8540